=== PATIENT | female | born 1940 | race Caucasian/White ===

== ENCOUNTER 2020-03-05 13:50 | IRF | payer MEDICARE, SELFPAY ==
[2020-03-05 13:50] VITALS: BP 150/62; PULSE 88; RESP 18; TEMP 36.5; O2SAT 100; BMI 30.2
--- NOTE | 2020-03-05 14:07 | ADMGEN ---
This patient, Susana Gaming, was admitted to [facility] Room 226-02. Patient/family oriented to hospital policies and general routines including ID bracelet, bed and alarms, visiting hours, pain management, procedures, bathroom and other care routines, personal items, smoking policy, room service/diet, and visiting hours. Valuables list has been completed. Information on how to activate the Rapid Response Team has been discussed. Patient/Family are encouraged to report perceived risks to care and to ask questions if they do not understand what they are told or what they should do.
[2020-03-05] MEDS: hydrALAZINE HCL 50 MG TABLET PO ×2 (17:18→21:21)
[2020-03-05] MEDS: CLONAZEPAM 0.5 MG TAB 2 MG PO (21:15)
[2020-03-05 21:17] VITALS: PULSE 92
[2020-03-05] MEDS: LABETALOL HCL 100 MG TABLET PO (21:17)
[2020-03-05] MEDS: polyethylene glycoL 3350 17 GM POWD.PACK PO (21:19)
[2020-03-05 22:00] VITALS: BP 144/67; PULSE 100; RESP 19; TEMP 37.4; O2SAT 97
[2020-03-05] MEDS: busPIRone HCL 5 MG TABLET PO (23:17)
[2020-03-06 05:12] LABS: Basophils Percent Auto 0.4 % (0.2-1.2); Eosinophils Absolute Auto 0.1 K/mm3 (0-0.3); Eosinophils Percent Auto 1.5 % (0-4.4); Hematocrit 33.2 % (37.0-47.0); Hemoglobin 10.6 g/dL (12.0-15.0); Immature Granulocyte Absolute 0.07 K/mm3 (0.00-0.031); Immature Granulocyte Percent A 0.9 % (0-0.5); Lymphocytes Absolute Auto 1.72 K/mm3 (0.9-3.2); Lymphocytes Percent Auto 21.3 % (18.3-44.2); Mean Corpuscular HGB Conc 31.9 g/dl (32-36); Mean Corpuscular Hemoglobin 26.9 pg (26-34); Mean Corpuscular Volume 84.3 fl (80-100); Mean Platelet Volume 8.2 fl (7.4-10.4); Monocytes Absolute Auto 0.9 K/mm3 (0.1-0.6); Neutrophils Absolute Auto 5.3 K/mm3 (1.3-6.7); Neutrophils Percent Auto 64.9 % (45.5-73.1); Platelet Count Result 376 k/mm3 (150-375); Red Blood Count 3.94 M/mm3 (4.2-5.4); Red Cell Distribution Width 14.2 % (11.5-14.5); White Blood Count 8.1 K/mm3 (4.5-10.0)
[2020-03-06 05:21] LABS: Blood Urea Nitrogen 22 mg/dL (7-17); Calcium 8.8 mg/dL (8.4-10.2); Carbon Dioxide 26 mmol/L (22-30); Chloride 99 mmol/L (98-107); Cholesterol 133 mg/dL (0-200); Estimated CRCL calculation 50 ml/min; Estimated Glomerular Filt Rate > 60; Glucose 102 mg/dL (65-105); HDL Direct 34 mg/dL; Potassium 3.6 mmol/L (3.4-5.0); Sodium 132 mmol/L (137-145); Triglycerides 102 mg/dL (<150)
[2020-03-06 05:32] LABS: LDL Cholesterol Direct 79 mg/dL
[2020-03-06] MEDS: hydrALAZINE HCL 50 MG TABLET PO ×3 (05:58→21:01)
[2020-03-06 06:00] VITALS: BP 139/75; PULSE 85; RESP 18; TEMP 36.8; O2SAT 97
[2020-03-06] MEDS: polyethylene glycoL 3350 17 GM POWD.PACK PO ×2 (08:45→21:02)
[2020-03-06] MEDS: CLOPIDOGREL BISULFATE 75 MG TABLET PO (08:45)
[2020-03-06] MEDS: ASPIRIN 81 MG CHEWABLE TABLET PO (08:46)
[2020-03-06] MEDS: busPIRone HCL 5 MG TABLET PO ×3 (08:46→17:00)
--- NOTE | 2020-03-06 11:00 | WPDREHABHP ---
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 The patient is a 79-year-old right-handed woman with a very long history of anxiety and depression seeing psychiatrist for over 20 years pains it into the [facility] on March 01, 2020 due to left-sided weakness and PN all over. The patient reported of month history of muscle pain which her primary doctor prescribed prednisone and she felt better. To his is prior to admission she noticed slight left-sided weakness. She fell the day of admission and was unable to get herself up but is able to crawl to get to assistance. Upon admission CK level was 1639, LDL was 84 and sed rate was 31. CT was negative for any acute abnormality. Brain MRI demonstrated an acute ischemic stroke to paramidline pontomedullary junction and chronic smell small vessel disease. Echo showed an ejection fraction of 65%. Cardiology was consulted with no new orders. Neurology was consulted in order aspirin 81 milligram and Plavix. She was treated with IV fluids for elevated CPK level and her home: As been was cut down to 1 milligram at bedtime to improve balance. Her blood pressure was supposed to be controlled at home with labetalol, but the patient reported only taking 1 have does due to feeling hazy when taking the full dose. She was started on hydralazine 3 times a day to go with the half a dose of labetalol. Physical examination continues to reveal left-sided weakness impaired balance decreased safety awareness and decreased gross motor controlled. The patient will be discharged rehab on Lovenox for DVT prophylaxis. Therapy was initiated at the acute care facility and the patient transferred to us from [facility] on March 05, 2020 on FALLS OR SURGERIES: The patient has had no major surgeries in the 100 days prior to admission. They had no falls in the past year. They had no falls with injury in the past year. PAST MEDICAL HISTORY: TIA, chronic back and knee pain, hyperlipidemia, obstructive sleep apnea, hypertension, bulging lumbar discs, cancer of the kidney, insomnia, multinodular goiter, has scoliosis, shingles, vaginal atrophy, hyponatremia, hypokalemia The patient also has significant history of anxiety and depression and has been followed by the psychiatrist has been on Klonopin for almost 20 years and has received ECT in the past at least 3 times in 1 session she had tried amitriptyline and did have side effects from it she also suffers from chronic insomnia most likely related to underlying anxiety and depressive state PAST SURGICAL HISTORY: back surgery, cataract extraction, cystoscopy, hysterectomy, tumor removed from kidney. SOCIAL HISTORY: The patient lives independently in 1 level home with 1 step to enter she was completely independent prior with no assistive device. She has a friend that stops by every but he is unable to assist her with functional transfers and ambulation. She reported falls in the past 6 months but no personal or major injury. FAMILY HISTORY: The family history she will be able to give it to me tomorrow once she finds out or figure it out PRIOR LEVEL OF FUNCTION: Eating was INDEPENDENT Oral Care was INDEPENDENT Toileting Hygiene was INDEPENDENT Shower/Bathing was INDEPENDENT Upper Body Dressing was INDEPENDENT Lower Body Dressing was INDEPENDENT Donning/[place] Footwear was INDEPENDENT Rolling Left and Right was INDEPENDENT Sit to Lying was INDEPENDENT Lying to Sitting was INDEPENDENT Sit to Stand was INDEPENDENT Bed to Chair Transfers was INDEPENDENT Toilet Transfers was INDEPENDENT Walking was INDEPENDENT >500 feet with NO DEV
[2020-03-06 12:25] VITALS: BMI 30.2
[2020-03-06 14:00] VITALS: BP 146/68; PULSE 82; RESP 18; TEMP 36.6; O2SAT 96
--- NOTE | 2020-03-06 15:28 | RPD ---
INDIVIDUALIZED PLAN OF CARE FOR Susana Gaming Brief Synthesis of Pre-Admission Screen, Post-Admission Evaluation and Therapy Evaluations: The patient presents to rehab with right ischemic pontine stroke. Comorbidities include anxiety, back pain, uncontrolled hypertension, ESME, HLD, left-sided weakness, rhabdomyolysis, leukocytosis, scoliosis, insomnia, headache, dysarthria, mild cognitive impairment. The patient requires physician services for neurology services, medical oversight, and coordination of care. Emotional needs will be monitored as depression is a common sequelae of stroke. The patient needs physician monitoring and treatment of uncontrolled hypertension, electrolyte imbalances, monitoring for adverse reactions to new medications, monitoring for infection, and pain control. The patient requires nursing services for frequent neuro checks, anticoagulation therapy, medication management and education, pressure relief and skin care management, monitoring of labs, and fall/safety precautions. Deficits include:ADLs, Balance, Endurance, Family Training/Education, Mobility, Pain Management, ROM, Safety, Strength, Transfers Fitness Management Director/Case Management for: Discharge Planning and Patient/Family Counseling Physical Therapy: 5 days per week for 90 minutes. Treatments may include: Therapeutic Exercise, Gait Training, Neuromuscular Re-education, Transfer Training, Community Reintegration, Bed Mobility, Patient/Family Education, Wheelchair Mobility Group Therapy/Concurrent Therapy Rationales: -Improve attention span during functional activities in a distracted environment. -Enhance problem solving and/or adequate judgment skills during functional activities in a distracted environment. -Promote increased safety awareness in a distracted environment to reduce fall risk with functional tasks, transfers, and ambulation to allow a more safe, self-sufficient return to the home environment. -Improve dynamic balance skills to promote safety and independence with functional activities in a distracted environment for maximum gain. Occupational Therapy: 5 days per week for 90 minutes. Treatments may include: Therapeutic Exercise, Therapeutic Activity, Cognitive Training, Self-Care Transfer Training, Community Reintegration, Home Management, Patient/Family Education, Wheelchair Mobility Training, Energy Conservation Training Group Therapy/Concurrent Therapy Rationales: -Allow therapist to observe and teach generalization and carry-over of skills learned in individual therapy. -Enhance problem solving and sequencing skills during therapeutic activities in a distracted environment. -Promote increased safety awareness in a realistic setting to reduce fall risk with functional tasks due to visual and verbal distractions. -Increase functional level with ADLs, ADL transfers and use of adaptive equipment through therapeutic activities with others while promoting safety to allow a more safe, self-sufficient return home. Medical Prognosis: Good Anticipated Length of Stay: 10 days Rehab Goals: Eating Goal: 06-Independent Oral Hygiene Goal: 06-Independent Toileting Hygiene Goal: 06-Independent Shower/Bathe Self Goal: 06-Independent Upper Body Dressing Goal: 06-Independent Lower Body Dressing Goal: 06-Independent Putting On/Taking Off Footwear Goal: 06-Independent Rolling Left and Right Goal: 06-Independent Sit to Lying Goal: 06-Independent Lying to Sitting on Side of Bed Goal: 06-Independent Sit to Stand Goal: 06-Independent Chair/[id number] Transfer Goal: 06-Independent Toilet Transfer Goal: 06-Independent Car Transfer Goal: 06-Independent Walk 10' Goal: 06-Independent Walk 50' with Two Turns Goal: 06-Independent Walk 150' Goal: 06-Independent Walk 10' on Uneven Surface Goal: 06-Independent 1 Step (Curb) Goal: 04-Supervision or Touching Assistance 4 Steps Goal: 04-Supervision or Touching Assistance 12 Steps Goal Score: 03-Partial/Moderate Assistance Mariana
[2020-03-06 21:01] VITALS: PULSE 88
[2020-03-06] MEDS: QUEtiapine FUMARATE 12.5 MG TABLET PO (21:01)
[2020-03-06] MEDS: LABETALOL HCL 100 MG TABLET PO (21:01)
[2020-03-06] MEDS: CLONAZEPAM 0.5 MG TAB 2 MG PO (21:01)
[2020-03-06] MEDS: ACETAMINOPHEN 325 MG TABLET 650 MG PO (21:02)
[2020-03-06 22:00] VITALS: BP 127/56; PULSE 101; RESP 19; TEMP 37.4; O2SAT 95
[2020-03-07 06:00] VITALS: BP 131/61; PULSE 75; RESP 18; TEMP 36.4; O2SAT 97
[2020-03-07] MEDS: hydrALAZINE HCL 50 MG TABLET PO ×3 (06:52→21:17)
[2020-03-07] MEDS: polyethylene glycoL 3350 17 GM POWD.PACK PO (08:49)
[2020-03-07] MEDS: CLOPIDOGREL BISULFATE 75 MG TABLET PO (08:49)
[2020-03-07] MEDS: busPIRone HCL 5 MG TABLET PO ×3 (08:49→17:08)
[2020-03-07] MEDS: ASPIRIN 81 MG CHEWABLE TABLET PO (08:49)
--- NOTE | 2020-03-07 12:04 | WPDNEURORHBP ---
Subjective Date/time seen: 03/07/20 12:04 Interval history: this 79-year-old woman is here after having had right pontine ischemic stroke with the left-sided hemiparesis with underlying significant anxiety and depression almost lifelong she is complaining of insomnia for which I have opted to give her a little increasing dose of Seroquel which she has been taking of his small dose at home anyway and see how she responds she denies any headache nausea vomiting chest pain shortness of breath fever chills or sore throat Review of Systems Review of Systems: All systems reviewed & are unremarkable except as noted in HPI and below Functional Status Ambulation Ability Ability to Ambulate 10 Feet: Minimum Assistance X 1 Ability to Ambulate 50 Feet With 2 Turns: Moderate Assistance X 1 Ability to Ambulate 150 Feet: Moderate Assistance X 1 Ambulation Assistive Devices: Walker, Wheeled Transfers Ability Ability to Transfer In/Out of Chair: Minimum Assistance X 1 Exam Const: General: comfortable and no acute distress HENMT: General nose exam: Normal nares present Mouth: Yes moist mucous membranes Eyes: General: appearance normal, both eyes and all related structures Neck: Neck: supple and no JVD Resp: Effort & Inspection: normal respiratory effort Auscultation: clear to auscultation bilaterally Cardio: Rate: regular rate Rhythm: regular rhythm GI: GI Palp: Yes Soft to palpation Auscultation: normal bowel sounds Skin: General skin exam: normal color and no rashes or lesions noted Neuro: Other: patient is awake and alert will oriented in time place and person is speech and language functions are normal cranial exam henderson are normal left-sided hemiparesis improving her underlying anxiety is stable Extrem: General: normal to inspection Psych: Mental Status: mental status grossly normal Other: apart from anxiety state which she has lifelong she is stable from psychological standpoint Objective Data Vital Signs Vital Signs: Vital Signs - 24 hr 03/07/20 14:00 03/07/20 20:23 03/07/20 22:00 Temperature 37.0 C 36.7 C Pulse Rate 86 82 91 Respiratory Rate 18 18 Blood Pressure 138/63 137/59 L Pulse Oximetry 96 94 03/08/20 06:00 Temperature 36.7 C Pulse Rate 76 Respiratory Rate 18 Blood Pressure 138/64 Pulse Oximetry 96 Intake/Output Intake/Output: Intake & Output 03/05/20 03/06/20 03/07/20 03/08/20 23:59 23:59 23:59 23:59 Intake Total 360 600 960 240 Balance 360 600 960 240 Meds/Results Medications: Active Medications Generic Name Dose Route Start Last Admin Trade Name Freq PRN Reason Stop Dose Admin Acetaminophen 650 mg 03/05/20 14:29 03/08/20 03:18 Tylenol Tablet PO 650 mg Q4H PRN Administration Pain Artificial Tears 1 drop 03/07/20 12:31 03/07/20 14:13 Artificial Tears EACH EYE 1 drop QID PRN Administration Dry Eye(s) Aspirin 81 mg 03/06/20 09:00 03/08/20 09:25 Aspirin Chewable PO 81 mg DAILY KALEN Administration Buspirone HCl 5 mg 03/06/20 13:00 03/08/20 09:25 Buspar PO 5 mg TID KALEN Administration Clonazepam 2 mg 03/05/20 21:00 03/07/20 20:23 Klonopin Tablet PO 2 mg HS KALEN Administration Clopidogrel Bisulfate 75 mg 03/06/20 09:00 03/08/20 09:25 Plavix PO 75 mg DAILY KALEN Administration Hydralazine HCl 50 mg 03/05/20 14:30 03/08/20 06:51 Apresoline Tablet PO 50 mg Q8HR KALEN Administration Labetalol HCl 100 mg 03/05/20 21:00 03/07/20 20:23 Trandate PO 100 mg HS KALEN Administration Polyethylene Glycol 17 gm 03/05/20 21:00 03/07/20 20:24 Miralax PO Not Given Q12HR KALEN Quetiapine Fumarate 12.5 mg 03/06/20 21:00 03/07/20 20:23 Seroquel PO 12.5 mg HS KALEN Administration Progress Note: A&P Assessment and Plan (1) Klonopin use disorder, moderate, in controlled environment, dependence: Code(s): F13.20 - Sedative, hypnotic or anxiolytic dependence, uncomplicated
[2020-03-07 14:00] VITALS: BP 138/63; PULSE 86; RESP 18; TEMP 37; O2SAT 96
[2020-03-07 20:23] VITALS: PULSE 82
[2020-03-07] MEDS: CLONAZEPAM 0.5 MG TAB 2 MG PO (20:23)
[2020-03-07] MEDS: LABETALOL HCL 100 MG TABLET PO (20:23)
[2020-03-07] MEDS: QUEtiapine FUMARATE 12.5 MG TABLET PO (20:23)
[2020-03-07 22:00] VITALS: BP 137/59; PULSE 91; RESP 18; TEMP 36.7; O2SAT 94
[2020-03-08] MEDS: ACETAMINOPHEN 325 MG TABLET 650 MG PO (03:18)
[2020-03-08 06:00] VITALS: BP 138/64; PULSE 76; RESP 18; TEMP 36.7; O2SAT 96
[2020-03-08] MEDS: hydrALAZINE HCL 50 MG TABLET PO ×3 (06:51→20:06)
[2020-03-08] MEDS: busPIRone HCL 5 MG TABLET PO ×3 (09:25→18:52)
[2020-03-08] MEDS: CLOPIDOGREL BISULFATE 75 MG TABLET PO (09:25)
[2020-03-08] MEDS: ASPIRIN 81 MG CHEWABLE TABLET PO (09:25)
[2020-03-08 14:00] VITALS: BP 152/61; PULSE 84; RESP 20; TEMP 36.9; O2SAT 95
--- NOTE | 2020-03-08 14:25 | WPDNEURORHBP ---
Subjective Date/time seen: 03/08/20 14:25 Interval history: this 79-year-old woman with a long history of anxiety depression is here after having had right pontine stroke which has left her with left-sided hemiparesis her stroke symptoms are improving however her anxiety level is higher and that is causing her to insomnia which I discussed with her in detail and counseled her about it she denies any headache nausea vomiting chest pain shortness of breath fever chills or sore throat Review of Systems Review of Systems: All systems reviewed & are unremarkable except as noted in HPI and below Functional Status Ambulation Ability Ability to Ambulate 10 Feet: Minimum Assistance X 1 Ability to Ambulate 50 Feet With 2 Turns: Moderate Assistance X 1 Ability to Ambulate 150 Feet: Moderate Assistance X 1 Ambulation Assistive Devices: Walker, Wheeled Transfers Ability Ability to Transfer In/Out of Chair: Minimum Assistance X 1 Exam Const: General: comfortable and no acute distress HENMT: General nose exam: Normal nares present Mouth: Yes moist mucous membranes Eyes: General: appearance normal, both eyes and all related structures Neck: Neck: supple and no JVD Resp: Effort & Inspection: normal respiratory effort Auscultation: clear to auscultation bilaterally Cardio: Rate: regular rate Rhythm: regular rhythm GI: GI Palp: Yes Soft to palpation Auscultation: normal bowel sounds Skin: General skin exam: normal color and no rashes or lesions noted Neuro: Other: patient had left-sided hemiparesis from which she is improving still needing assistance in the activities o Extrem: General: normal to inspection Psych: Other: underlying anxiety is obvious otherwise sees stable neither psychotic or not in significant distress Objective Data Vital Signs Vital Signs: Vital Signs - 24 hr 03/07/20 20:23 03/07/20 22:00 03/08/20 06:00 Temperature 36.7 C 36.7 C Pulse Rate 82 91 76 Respiratory Rate 18 18 Blood Pressure 137/59 L 138/64 Pulse Oximetry 94 96 Intake/Output Intake/Output: Intake & Output 03/05/20 03/06/20 03/07/20 03/08/20 23:59 23:59 23:59 23:59 Intake Total 360 600 960 240 Balance 360 600 960 240 Meds/Results Medications: Active Medications Generic Name Dose Route Start Last Admin Trade Name Freq PRN Reason Stop Dose Admin Acetaminophen 650 mg 03/05/20 14:29 03/08/20 03:18 Tylenol Tablet PO 650 mg Q4H PRN Administration Pain Artificial Tears 1 drop 03/07/20 12:31 03/07/20 14:13 Artificial Tears EACH EYE 1 drop QID PRN Administration Dry Eye(s) Aspirin 81 mg 03/06/20 09:00 03/08/20 09:25 Aspirin Chewable PO 81 mg DAILY KALEN Administration Buspirone HCl 5 mg 03/06/20 13:00 03/08/20 13:52 Buspar PO 5 mg TID KALEN Administration Clonazepam 2 mg 03/05/20 21:00 03/07/20 20:23 Klonopin Tablet PO 2 mg HS KALEN Administration Clopidogrel Bisulfate 75 mg 03/06/20 09:00 03/08/20 09:25 Plavix PO 75 mg DAILY KALEN Administration Hydralazine HCl 50 mg 03/05/20 14:30 03/08/20 06:51 Apresoline Tablet PO 50 mg Q8HR KALEN Administration Labetalol HCl 100 mg 03/05/20 21:00 03/07/20 20:23 Trandate PO 100 mg HS KALEN Administration Melatonin 10 mg 03/08/20 21:00 Melatonin PO HS KALEN Polyethylene Glycol 17 gm 03/05/20 21:00 03/07/20 20:24 Miralax PO Not Given Q12HR KALEN Quetiapine Fumarate 12.5 mg 03/06/20 21:00 03/07/20 20:23 Seroquel PO 12.5 mg HS KALEN Administration Progress Note: A&P Assessment and Plan (1) Klonopin use disorder, moderate, in controlled environment, dependence: Code(s): F13.20 - Sedative, hypnotic or anxiolytic dependence, uncomplicated Status: Acute (2) Anxiety and depression: Code(s): F41.9 - Anxiety disorder, unspecified; F32.9 - Major depressive disorder, single episode, unspecified Status: Acute (3) Hypertension: Code
[2020-03-08 20:05] VITALS: PULSE 88
[2020-03-08] MEDS: LABETALOL HCL 100 MG TABLET PO (20:05)
[2020-03-08] MEDS: MELATONIN 5 MG TABLET 10 MG PO (20:05)
[2020-03-08] MEDS: polyethylene glycoL 3350 17 GM POWD.PACK PO (20:05)
[2020-03-08] MEDS: QUEtiapine FUMARATE 12.5 MG TABLET PO (20:06)
[2020-03-08] MEDS: CLONAZEPAM 0.5 MG TAB 2 MG PO (20:08)
[2020-03-08 21:53] VITALS: BP 146/64; PULSE 87; RESP 18; TEMP 37.1; O2SAT 96
[2020-03-09] MEDS: ACETAMINOPHEN 325 MG TABLET 650 MG PO (02:12)
[2020-03-09] MEDS: hydrALAZINE HCL 50 MG TABLET PO ×3 (05:50→20:05)
[2020-03-09 06:26] VITALS: BP 171/69; PULSE 84; RESP 18; TEMP 36.6; O2SAT 96
[2020-03-09] MEDS: ASPIRIN 81 MG CHEWABLE TABLET PO (08:47)
[2020-03-09] MEDS: CLOPIDOGREL BISULFATE 75 MG TABLET PO (08:47)
[2020-03-09] MEDS: busPIRone HCL 5 MG TABLET PO ×3 (08:47→17:13)
[2020-03-09] MEDS: CALCIUM CARBONATE (TUMS) 500 MG (200 MG ELEMENTAL) 400 MG PO (09:55)
[2020-03-09 14:00] VITALS: BP 156/72; PULSE 80; RESP 18; TEMP 36.2; O2SAT 97
[2020-03-09] MEDS: LOPERAMIDE HCL 2 MG CAPSULE PO (17:12)
--- NOTE | 2020-03-09 18:17 | PC.NURSE ---
pt upset this shift stating she could not deal with the medications at night. patient stated she felt she was dopey and couldn't do therapy. Dr Tristan here and was updated and talked to the patient. Seroquel was decreased to 6.25, melatonin 10 mg was discontinued. Pt also stated she was having a lot of bowel movements today and her stomach was upset. pt requested tums this morning which an order was obtained and given. Patient then requested something to stop going to the bathroom so much. received order for imodium and patient given a dose. will continue to monitor.
[2020-03-09 20:04] VITALS: PULSE 76
[2020-03-09] MEDS: LABETALOL HCL 100 MG TABLET PO (20:04)
[2020-03-09] MEDS: CLONAZEPAM 0.5 MG TAB 2 MG PO (20:04)
[2020-03-09 22:00] VITALS: BP 167/73; PULSE 81; RESP 18; TEMP 36.4; O2SAT 98
[2020-03-10 06:00] VITALS: BP 145/66; PULSE 80; RESP 18; TEMP 36.2; O2SAT 97
[2020-03-10] MEDS: hydrALAZINE HCL 50 MG TABLET PO ×3 (06:44→20:32)
[2020-03-10] MEDS: CLOPIDOGREL BISULFATE 75 MG TABLET PO (09:57)
[2020-03-10] MEDS: busPIRone HCL 5 MG TABLET PO ×3 (09:57→18:10)
[2020-03-10] MEDS: ASPIRIN 81 MG CHEWABLE TABLET PO (09:57)
--- NOTE | 2020-03-10 11:43 | WPDNEURORHBP ---
Subjective Date/time seen: Right pontine stroke with anxiety and [id number]/26/20 11:43 Review of Systems Review of Systems: All systems reviewed & are unremarkable except as noted in HPI and below Functional Status Ambulation Ability Ability to Ambulate 10 Feet: Contact Guard Ability to Ambulate 50 Feet With 2 Turns: Minimum Assistance X 1 Ability to Ambulate 150 Feet: Minimum Assistance X 1 Ambulation Assistive Devices: Walker, Wheeled Transfers Ability Ability to Transfer In/Out of Chair: Minimum Assistance X 1 Exam Const: General: comfortable and no acute distress Orientation/consciousness: patient oriented x3 Eyes: General: appearance normal, both eyes and all related structures Neck: Neck: full ROM Resp: Effort & Inspection: normal respiratory effort Auscultation: clear to auscultation bilaterally Cardio: Rate: regular rate Rhythm: regular rhythm GI: Auscultation: normal bowel sounds Skin: General skin exam: no rashes or lesions noted Neuro: General: patient oriented x3 and moves all extremities Cranial nerves: Yes Equal, round and reactive pupils present, Yes Nystagmus not present, Yes Normal facial strength present and Yes Ability to bilaterally rotate head present Cognition (Neuro): normal cognition Speech: normal speech Gait exam (Neuro): Assisted gait required (hemiparetic) Psych: Affect: Anxious affect present Thought process: Normal thought process present Thought content: Yes Normal thought content present Objective Data Vital Signs Vital Signs: Vital Signs - 24 hr 03/09/20 14:00 03/09/20 20:04 03/09/20 22:00 Temperature 36.2 C L 36.4 C L Pulse Rate 80 76 81 Respiratory Rate 18 18 Blood Pressure 156/72 H 167/73 H Pulse Oximetry 97 98 03/10/20 06:00 Temperature 36.2 C L Pulse Rate 80 Respiratory Rate 18 Blood Pressure 145/66 H Pulse Oximetry 97 Intake/Output Intake/Output: Intake & Output 03/07/20 03/08/20 03/09/20 03/10/20 23:59 23:59 23:59 23:59 Intake Total 960 480 720 240 Balance 960 480 720 240 Meds/Results Medications: Active Medications Generic Name Dose Route Start Last Admin Trade Name Freq PRN Reason Stop Dose Admin Acetaminophen 650 mg 03/05/20 14:29 03/09/20 02:12 Tylenol Tablet PO 650 mg Q4H PRN Administration Pain Artificial Tears 1 drop 03/07/20 12:31 03/07/20 14:13 Artificial Tears EACH EYE 1 drop QID PRN Administration Dry Eye(s) Aspirin 81 mg 03/06/20 09:00 03/10/20 09:57 Aspirin Chewable PO 81 mg DAILY KALEN Administration Buspirone HCl 5 mg 03/06/20 13:00 03/10/20 09:57 Buspar PO 5 mg TID KALEN Administration Calcium Carbonate 400 mg 03/09/20 09:24 03/09/20 09:55 Tums PO 400 mg Q6H PRN Administration Indigestion Clonazepam 2 mg 03/05/20 21:00 03/09/20 20:04 Klonopin Tablet PO 2 mg HS KALEN Administration Clopidogrel Bisulfate 75 mg 03/06/20 09:00 03/10/20 09:57 Plavix PO 75 mg DAILY KALEN Administration Hydralazine HCl 50 mg 03/05/20 14:30 03/10/20 06:44 Apresoline Tablet PO 50 mg Q8HR KALEN Administration Labetalol HCl 100 mg 03/05/20 21:00 03/09/20 20:04 Trandate PO 100 mg HS KALEN Administration Loperamide HCl 2 mg 03/09/20 14:50 03/09/20 17:12 Loperamide Hcl PO 2 mg PRN PRN Administration Diarrhea Quetiapine 6.25mg 1 each 03/09/20 21:00 03/09/20 20:05 Tablet PO 04/08/20 21:01 1 each HS KALEN Administration Polyethylene Glycol 17 gm 03/09/20 15:24 Miralax PO 03/12/20 15:25 Q12HR PRN Constipation Progress Note: A&P Assessment and Plan (1) Klonopin use disorder, moderate, in controlled environment, dependence: Code(s): F13.20 - Sedative, hypnotic or anxiolytic dependence, uncomplicated Status: Acute (2) Anxiety and depression: Code(s): F41.9 - Anxiety disorder, unspecified; F32.9 - Major depressive disorder, single episode, unspecified Status
[2020-03-10 14:00] VITALS: BP 149/66; PULSE 89; RESP 16; TEMP 36.6; O2SAT 96
[2020-03-10 20:32] VITALS: PULSE 88
[2020-03-10] MEDS: LABETALOL HCL 100 MG TABLET PO (20:32)
[2020-03-10] MEDS: CLONAZEPAM 0.5 MG TAB 2 MG PO (20:33)
[2020-03-10 22:00] VITALS: BP 146/76; PULSE 84; RESP 18; TEMP 36.6; O2SAT 96
[2020-03-11] MEDS: ACETAMINOPHEN 325 MG TABLET 650 MG PO (02:55)
[2020-03-11 06:00] VITALS: BP 144/52; PULSE 76; RESP 18; TEMP 37.1; O2SAT 96
[2020-03-11] MEDS: hydrALAZINE HCL 50 MG TABLET PO ×3 (06:05→21:01)
[2020-03-11] MEDS: ASPIRIN 81 MG CHEWABLE TABLET PO (08:24)
[2020-03-11] MEDS: CLOPIDOGREL BISULFATE 75 MG TABLET PO (08:24)
[2020-03-11] MEDS: busPIRone HCL 5 MG TABLET PO ×3 (08:24→17:16)
--- NOTE | 2020-03-11 13:03 | PCNFU ---
Nutrition Follow-Up Complete: Predicted suboptimal oral intake related to decreased appetite as evidenced by intakes 50-75% thus far. Goal: Patient to consume 75% of meals/supplements. Progressing towards goal. We will continue with current goal. Pt current nutrition is Heart Healthy. Nutrition recommendation: Agree Last recorded weight is 85 kg. Bowel Motility: +BM reported 03/10. Labs Reviewed:No new labs to report. Meds Noted:Asprin,Plavix Additional Notes: Spoke with patient over the telephone today due to COVID 19 precautions. Patient states to no diet concerns. Oral Intake has been 50-100% of most meals. Patient states to drinking the Ensure Enlive once daily providing an additional 350 kcals and 20 gms protein. Agree with diet orders. Monitoring: Follow up every 7 days.
[2020-03-11 14:00] VITALS: BP 134/60; PULSE 88; RESP 16; TEMP 37.2; O2SAT 97
[2020-03-11] MEDS: CLONAZEPAM 0.5 MG TAB 2 MG PO (20:57)
[2020-03-11] MEDS: polyethylene glycoL 3350 17 GM POWD.PACK PO (21:00)
[2020-03-11 21:01] VITALS: PULSE 66
[2020-03-11] MEDS: LABETALOL HCL 100 MG TABLET PO (21:01)
[2020-03-11 22:00] VITALS: BP 148/66; PULSE 86; RESP 18; TEMP 37; O2SAT 97
[2020-03-12 06:00] VITALS: BP 162/66; PULSE 83; RESP 18; TEMP 37.1; O2SAT 95
[2020-03-12] MEDS: hydrALAZINE HCL 50 MG TABLET PO ×3 (06:37→21:14)
[2020-03-12] MEDS: CLOPIDOGREL BISULFATE 75 MG TABLET PO (10:07)
[2020-03-12] MEDS: busPIRone HCL 5 MG TABLET PO ×3 (10:07→17:14)
[2020-03-12] MEDS: ASPIRIN 81 MG CHEWABLE TABLET PO (10:07)
[2020-03-12 14:00] VITALS: BP 140/58; PULSE 80; RESP 18; TEMP 36.6; O2SAT 99
--- NOTE | 2020-03-12 14:05 | WPDNEURORHBP ---
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 She denies any headache nausea vomiting chest pain shortness of breath fever chills or sore throat Review of Systems Review of Systems: All systems reviewed & are unremarkable except as noted in HPI and below Functional Status Ambulation Ability Ability to Ambulate 10 Feet: Contact Guard Ability to Ambulate 50 Feet With 2 Turns: Contact Guard Ability to Ambulate 150 Feet: Contact Guard Ambulation Assistive Devices: Walker, Wheeled Transfers Ability Ability to Transfer In/Out of Chair: Minimum Assistance X 1 Exam Const: General: comfortable and no acute distress HENMT: General nose exam: Normal nares present Mouth: Yes moist mucous membranes Eyes: General: appearance normal, both eyes and all related structures Neck: Neck: supple and no JVD Resp: Effort & Inspection: normal respiratory effort Auscultation: clear to auscultation bilaterally Cardio: Rate: regular rate Rhythm: regular rhythm GI: GI Palp: Yes Soft to palpation Auscultation: normal bowel sounds Skin: General skin exam: normal color and no rashes or lesions noted Neuro: Other: patient is awake alert will oriented times person person has normal speech lung function cranial exam shows normal she does have improving left-sided hemiparesis and engage in therapy fairly well Extrem: General: normal to inspection Psych: Mental Status: mental status grossly normal Objective Data Vital Signs Vital Signs: Vital Signs - 24 hr 03/11/20 21:01 03/11/20 22:00 03/12/20 06:00 Temperature 37.0 C 37.1 C Pulse Rate 66 86 83 Respiratory Rate 18 18 Blood Pressure 148/66 H 162/66 H Pulse Oximetry 97 95 Intake/Output Intake/Output: Intake & Output 03/09/20 03/10/20 03/11/20 03/12/20 23:59 23:59 23:59 23:59 Intake Total 720 680 720 480 Balance 720 680 720 480 Meds/Results Medications: Active Medications Generic Name Dose Route Start Last Admin Trade Name Freq PRN Reason Stop Dose Admin Acetaminophen 650 mg 03/05/20 14:29 03/11/20 02:55 Tylenol Tablet PO 650 mg Q4H PRN Administration Pain Artificial Tears 1 drop 03/07/20 12:31 03/07/20 14:13 Artificial Tears EACH EYE 1 drop QID PRN Administration Dry Eye(s) Aspirin 81 mg 03/06/20 09:00 03/12/20 10:07 Aspirin Chewable PO 81 mg DAILY KALEN Administration Buspirone HCl 5 mg 03/06/20 13:00 03/12/20 12:49 Buspar PO 5 mg TID KALEN Administration Calcium Carbonate 400 mg 03/09/20 09:24 03/09/20 09:55 Tums PO 400 mg Q6H PRN Administration Indigestion Clonazepam 2 mg 03/05/20 21:00 03/11/20 20:57 Klonopin Tablet PO 2 mg HS KALEN Administration Clopidogrel Bisulfate 75 mg 03/06/20 09:00 03/12/20 10:07 Plavix PO 75 mg DAILY KALEN Administration Hydralazine HCl 50 mg 03/05/20 14:30 03/12/20 06:37 Apresoline Tablet PO 50 mg Q8HR KALEN Administration Labetalol HCl 100 mg 03/05/20 21:00 03/11/20 21:01 Trandate PO 100 mg HS KALEN Administration Loperamide HCl 2 mg 03/09/20 14:50 03/09/20 17:12 Loperamide Hcl PO 2 mg PRN PRN Administration Diarrhea Quetiapine 6.25mg 1 each 03/09/20 21:00 03/11/20 20:59 Tablet PO 04/08/20 21:01 1 each HS KALEN Administration Polyethylene Glycol 17 gm 03/09/20 15:24 03/11/20 21:00 Miralax PO 03/12/20 15:25 17 gm Q12HR PRN Administration Constipation Progress Note: A&P Assessment and Plan (1) Klonopin use disorder, moderate, in controlled environment, dependence: Code(s): F13.20 - Sedative, hypnotic or anxiolytic dependence, uncomplicated Status: Acute (2) Anxiety and depression: Code(s): F41.9 - A
[2020-03-12 16:00] VITALS: PULSE 82; RESP 18
[2020-03-12] MEDS: CLONAZEPAM 0.5 MG TAB 2 MG PO (21:11)
[2020-03-12 21:14] VITALS: PULSE 68
[2020-03-12] MEDS: LABETALOL HCL 100 MG TABLET PO (21:14)
[2020-03-12 22:00] VITALS: BP 168/74; PULSE 83; RESP 18; TEMP 36.8; O2SAT 98
[2020-03-13 04:38] LABS: Basophils Percent Auto 0.4 % (0.2-1.2); Eosinophils Absolute Auto 0.1 K/mm3 (0-0.3); Eosinophils Percent Auto 1.9 % (0-4.4); Hematocrit 29.8 % (37.0-47.0); Hemoglobin 9.4 g/dL (12.0-15.0); Immature Granulocyte Absolute 0.03 K/mm3 (0.00-0.031); Immature Granulocyte Percent A 0.4 % (0-0.5); Lymphocytes Absolute Auto 1.16 K/mm3 (0.9-3.2); Lymphocytes Percent Auto 17.2 % (18.3-44.2); Mean Corpuscular HGB Conc 31.5 g/dl (32-36); Mean Corpuscular Hemoglobin 26.8 pg (26-34); Mean Corpuscular Volume 84.9 fl (80-100); Mean Platelet Volume 8.3 fl (7.4-10.4); Monocytes Absolute Auto 0.9 K/mm3 (0.1-0.6); Neutrophils Absolute Auto 4.5 K/mm3 (1.3-6.7); Neutrophils Percent Auto 67.1 % (45.5-73.1); Platelet Count Result 330 k/mm3 (150-375); Red Blood Count 3.51 M/mm3 (4.2-5.4); Red Cell Distribution Width 14.4 % (11.5-14.5); White Blood Count 6.8 K/mm3 (4.5-10.0)
[2020-03-13 04:53] LABS: Blood Urea Nitrogen 16 mg/dL (7-17); Calcium 8.7 mg/dL (8.4-10.2); Carbon Dioxide 28 mmol/L (22-30); Chloride 97 mmol/L (98-107); Estimated CRCL calculation 55 ml/min; Estimated Glomerular Filt Rate > 60; Glucose 101 mg/dL (65-105); Potassium 3.8 mmol/L (3.4-5.0); Sodium 131 mmol/L (137-145)
[2020-03-13 06:00] VITALS: BP 171/71; PULSE 78; RESP 18; TEMP 36.8; O2SAT 98
[2020-03-13] MEDS: hydrALAZINE HCL 25 MG TABLET 50 MG PO (06:29)
[2020-03-13 08:00] VITALS: PULSE 79; RESP 18; O2SAT 97
[2020-03-13] MEDS: ASPIRIN 81 MG CHEWABLE TABLET PO (11:02)
[2020-03-13] MEDS: busPIRone HCL 5 MG TABLET PO ×2 (11:02→18:59)
[2020-03-13] MEDS: CLOPIDOGREL BISULFATE 75 MG TABLET PO (11:02)
--- NOTE | 2020-03-13 12:47 | PCPTNOTE ---
Susana Gaming was evaluated for a wheeled walker on 03/13/2020 by this physical therapist. The wheeled walker will resolve patient's mobility limitations and will be used for ADL's within the home. The patient can safely use the wheeled walker. ?The wheeled walker will resolve the patient?s mobility deficits, including impaired balance, impaired strength, and impaired functional activity tolerance. Leann Fuller, PT, DPT
--- NOTE | 2020-03-13 13:43 | WPDNEURORHBP ---
Subjective Date/time seen: 03/13/20 13:43 Interval history: this 79-year-old we with significantly elevated blood pressure was admitted after having had a right pontine stroke with the left-sided hemiparesis which is initially is purely a more weakness the patient complains of tiredness and fatigue which could definitely be related to labetalol she is on however her systolic blood pressure remains most the time above 160 or even 170 which is a concerning factor in a person who have had a stroke and now so many days post stroke this needs to be addressed at this point she denies any headache nausea vomiting chest pain shortness of breath fever chills or sore throat her anxiety and depression is stable at this point Review of Systems Review of Systems: All systems reviewed & are unremarkable except as noted in HPI and below Functional Status Ambulation Ability Ability to Ambulate 10 Feet: Contact Guard Ability to Ambulate 50 Feet With 2 Turns: Contact Guard Ability to Ambulate 150 Feet: Contact Guard Ambulation Assistive Devices: Walker, Wheeled Transfers Ability Ability to Transfer In/Out of Chair: Contact Guard Exam Const: General: comfortable and no acute distress HENMT: General nose exam: Normal nares present Mouth: Yes moist mucous membranes Eyes: General: appearance normal, both eyes and all related structures Neck: Neck: supple and no JVD Resp: Effort & Inspection: normal respiratory effort Auscultation: clear to auscultation bilaterally Cardio: Rate: regular rate Rhythm: regular rhythm GI: GI Palp: Yes Soft to palpation Auscultation: normal bowel sounds Skin: General skin exam: normal color and no rashes or lesions noted Neuro: Other: patient is awake alert normal speech and language function is speech is free of aphasia and dysarthria left-sided weakness is improving her anxiety state is stable distal needing assistance in the activities Extrem: General: normal to inspection Psych: Mental Status: mental status grossly normal Objective Data Vital Signs Vital Signs: Vital Signs - 24 hr 03/12/20 14:00 03/12/20 16:00 03/12/20 21:14 Temperature 36.6 C Pulse Rate 80 82 68 Respiratory Rate 18 18 Blood Pressure 140/58 L Pulse Oximetry 99 03/12/20 22:00 03/13/20 06:00 Temperature 36.8 C 36.8 C Pulse Rate 83 78 Respiratory Rate 18 18 Blood Pressure 168/74 H 171/71 H Pulse Oximetry 98 98 Intake/Output Intake/Output: Intake & Output 03/10/20 03/11/20 03/12/20 03/13/20 23:59 23:59 23:59 23:59 Intake Total 680 720 720 480 Balance 680 720 720 480 Meds/Results Medications: Active Medications Generic Name Dose Route Start Last Admin Trade Name Freq PRN Reason Stop Dose Admin Acetaminophen 650 mg 03/05/20 14:29 03/11/20 02:55 Tylenol Tablet PO 650 mg Q4H PRN Administration Pain Artificial Tears 1 drop 03/07/20 12:31 03/07/20 14:13 Artificial Tears EACH EYE 1 drop QID PRN Administration Dry Eye(s) Aspirin 81 mg 03/06/20 09:00 03/13/20 11:02 Aspirin Chewable PO 81 mg DAILY KALEN Administration Buspirone HCl 5 mg 03/06/20 13:00 03/13/20 11:02 Buspar PO 5 mg TID KALEN Administration Calcium Carbonate 400 mg 03/09/20 09:24 03/09/20 09:55 Tums PO 400 mg Q6H PRN Administration Indigestion Clonazepam 2 mg 03/05/20 21:00 03/12/20 21:11 Klonopin Tablet PO 2 mg HS KALEN Administration Clopidogrel Bisulfate 75 mg 03/06/20 09:00 03/13/20 11:02 Plavix PO 75 mg DAILY KALEN Administration Labetalol HCl 100 mg 03/05/20 21:00 03/12/20 21:14 Trandate PO 100 mg HS KALEN Administration Loperamide HCl 2 mg 03/09/20 14:50 03/09/20 17:12 Loperamide Hcl PO 2 mg PRN PRN Administration Diarrhea Quetiapine 6.25mg 1 each 03/09/20 21:00 03/12/20 21:17 Tablet PO 04/08/20 21:01 1 each HS KALEN Administration Labs Labs: Laboratory Results - last 24 hr 03/13/20 03/13/20
[2020-03-13 14:00] VITALS: BP 152/62; PULSE 79; RESP 18; TEMP 36.8; O2SAT 97
[2020-03-13] MEDS: hydrALAZINE HCL 50 MG TABLET 100 MG PO ×2 (17:16→20:27)
[2020-03-13] MEDS: CLONAZEPAM 0.5 MG TAB 2 MG PO (20:27)
[2020-03-13 20:28] VITALS: PULSE 88
[2020-03-13] MEDS: LABETALOL HCL 100 MG TABLET PO (20:28)
[2020-03-13 22:00] VITALS: BP 160/61; PULSE 89; RESP 16; TEMP 37; O2SAT 94
[2020-03-14] MEDS: hydrALAZINE HCL 50 MG TABLET 100 MG PO ×3 (05:49→20:35)
[2020-03-14 06:00] VITALS: BP 146/60; PULSE 86; RESP 18; TEMP 36.9; O2SAT 93
[2020-03-14] MEDS: ASPIRIN 81 MG CHEWABLE TABLET PO (09:24)
[2020-03-14] MEDS: polyethylene glycoL 3350 17 GM POWD.PACK PO (09:24)
[2020-03-14] MEDS: CLOPIDOGREL BISULFATE 75 MG TABLET PO (09:24)
[2020-03-14] MEDS: busPIRone HCL 5 MG TABLET PO ×3 (09:25→17:18)
[2020-03-14] MEDS: ACETAMINOPHEN 325 MG TABLET 650 MG PO (09:25)
--- NOTE | 2020-03-14 10:42 | WPDNEURORHBP ---
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 her blood pressure is a decently controlled now after the hydralazine has been increased however still has lot of questions about the side effects of the medication and feel tired she need to be counseled on will consult her again as before to suppress her anxiety overall she is improving and doing much better in the rehab she denies any headache nausea vomiting chest pain shortness of breath fever chills or sore throat Review of Systems Review of Systems: All systems reviewed & are unremarkable except as noted in HPI and below Functional Status Ambulation Ability Ability to Ambulate 10 Feet: Standby Assistance Ability to Ambulate 50 Feet With 2 Turns: Standby Assistance Ability to Ambulate 150 Feet: Standby Assistance Ambulation Assistive Devices: Walker, Wheeled Transfers Ability Ability to Transfer In/Out of Chair: Contact Guard Exam Const: General: comfortable and no acute distress HENMT: General nose exam: Normal nares present Mouth: Yes moist mucous membranes Eyes: General: appearance normal, both eyes and all related structures Neck: Neck: supple and no JVD Resp: Effort & Inspection: normal respiratory effort Auscultation: clear to auscultation bilaterally Cardio: Rate: regular rate Rhythm: regular rhythm GI: GI Palp: Yes Soft to palpation Auscultation: normal bowel sounds Skin: General skin exam: normal color and no rashes or lesions noted Neuro: Other: apart from anxiety and depressive state the patient is awake and alert will oriented in time place and person with normal speech and language function normal cranial examination and significant improvement of the left-sided hemiparesis progressing in rehab quite well Extrem: General: normal to inspection Psych: Other: she remains a suffering from the anxiety and depression which most likely is her baseline Objective Data Vital Signs Vital Signs: Vital Signs - 24 hr 03/14/20 14:00 03/14/20 20:35 03/14/20 22:00 Temperature 36.4 C 36.8 C Pulse Rate 83 78 75 Respiratory Rate 18 18 Blood Pressure 161/64 H 151/74 H Pulse Oximetry 100 98 03/15/20 06:00 Temperature 36.9 C Pulse Rate 79 Respiratory Rate 16 Blood Pressure 146/66 H Pulse Oximetry 95 Intake/Output Intake/Output: Intake & Output 03/12/20 03/13/20 03/14/20 03/15/20 23:59 23:59 23:59 23:59 Intake Total 720 720 900 240 Balance 720 720 900 240 Meds/Results Medications: Active Medications Generic Name Dose Route Start Last Admin Trade Name Freq PRN Reason Stop Dose Admin Acetaminophen 650 mg 03/05/20 14:29 03/15/20 03:07 Tylenol Tablet PO 650 mg Q4H PRN Administration Pain Artificial Tears 1 drop 03/07/20 12:31 03/07/20 14:13 Artificial Tears EACH EYE 1 drop QID PRN Administration Dry Eye(s) Aspirin 81 mg 03/06/20 09:00 03/15/20 09:03 Aspirin Chewable PO 81 mg DAILY KALEN Administration Buspirone HCl 5 mg 03/06/20 13:00 03/15/20 09:03 Buspar PO 5 mg TID KALEN Administration Calcium Carbonate 400 mg 03/09/20 09:24 03/09/20 09:55 Tums PO 400 mg Q6H PRN Administration Indigestion Clonazepam 2 mg 03/05/20 21:00 03/14/20 20:35 Klonopin Tablet PO 2 mg HS KALEN Administration Clopidogrel Bisulfate 75 mg 03/06/20 09:00 03/15/20 09:03 Plavix PO 75 mg DAILY KALEN Administration Hydralazine HCl 100 mg 03/13/20 14:00 03/15/20 05:25 Apresoline Tablet PO 100 mg Q8HR KALEN Administration Labetalol HCl 100 mg 03/05/20 21:00 03/14/20 20:35 Trandate PO 100 mg HS KALEN Administration Loperamide HCl 2 mg 03/09/20 14:50 03/09/20 17:12 Loperamide Hcl PO 2 mg PRN PRN Administration Diarrhea Que
[2020-03-14 14:00] VITALS: BP 161/64; PULSE 83; RESP 18; TEMP 36.4; O2SAT 100
[2020-03-14 20:35] VITALS: PULSE 78
[2020-03-14] MEDS: CLONAZEPAM 0.5 MG TAB 2 MG PO (20:35)
[2020-03-14] MEDS: LABETALOL HCL 100 MG TABLET PO (20:35)
[2020-03-14 22:00] VITALS: BP 151/74; PULSE 75; RESP 18; TEMP 36.8; O2SAT 98
[2020-03-15] MEDS: ACETAMINOPHEN 325 MG TABLET 650 MG PO (03:07)
[2020-03-15] MEDS: hydrALAZINE HCL 50 MG TABLET 100 MG PO ×3 (05:25→21:07)
[2020-03-15 06:00] VITALS: BP 146/66; PULSE 79; RESP 16; TEMP 36.9; O2SAT 95
[2020-03-15] MEDS: busPIRone HCL 5 MG TABLET PO ×3 (09:03→17:12)
[2020-03-15] MEDS: CLOPIDOGREL BISULFATE 75 MG TABLET PO (09:03)
[2020-03-15] MEDS: ASPIRIN 81 MG CHEWABLE TABLET PO (09:03)
[2020-03-15 14:00] VITALS: BP 176/69; PULSE 80; RESP 19; TEMP 36.8; O2SAT 100
--- NOTE | 2020-03-15 14:53 | WPDNEURORHBP ---
Subjective Date/time seen: 03/15/20 14:53 Interval history: this 79-year-old woman with lifelong history of anxiety and depression a little paranoia and insomnia as here post pontine stroke with left-sided motor weakness she is clearly improving her blood pressure is better controlled with the increase in hydralazine no side effects from it noted patient is happier than yesterday not as sleepy fatigued tired denied any headache nausea vomiting chest pain or shortness of Review of Systems Review of Systems: All systems reviewed & are unremarkable except as noted in HPI and below Functional Status Ambulation Ability Ability to Ambulate 10 Feet: Standby Assistance Ability to Ambulate 50 Feet With 2 Turns: Standby Assistance Ability to Ambulate 150 Feet: Standby Assistance Ambulation Assistive Devices: Walker, Wheeled Transfers Ability Ability to Transfer In/Out of Chair: Contact Guard Exam Const: General: comfortable and no acute distress HENMT: General nose exam: Normal nares present Mouth: Yes moist mucous membranes Eyes: General: appearance normal, both eyes and all related structures Neck: Neck: supple and no JVD Resp: Effort & Inspection: normal respiratory effort Auscultation: clear to auscultation bilaterally Cardio: Rate: regular rate Rhythm: regular rhythm GI: GI Palp: Yes Soft to palpation Auscultation: normal bowel sounds Skin: General skin exam: normal color and no rashes or lesions noted Neuro: Other: patient is awake and alert well oriented in time place and person improving left-sided hemiparesis improved little bit of paranoia and anxiet Extrem: General: normal to inspection Psych: Mental Status: mental status grossly normal Objective Data Vital Signs Vital Signs: Vital Signs - 24 hr 03/14/20 20:35 03/14/20 22:00 03/15/20 06:00 Temperature 36.8 C 36.9 C Pulse Rate 78 75 79 Respiratory Rate 18 16 Blood Pressure 151/74 H 146/66 H Pulse Oximetry 98 95 Intake/Output Intake/Output: Intake & Output 03/12/20 03/13/20 03/14/20 03/15/20 23:59 23:59 23:59 23:59 Intake Total 720 720 900 660 Balance 720 720 900 660 Meds/Results Medications: Active Medications Generic Name Dose Route Start Last Admin Trade Name Freq PRN Reason Stop Dose Admin Acetaminophen 650 mg 03/05/20 14:29 03/15/20 03:07 Tylenol Tablet PO 650 mg Q4H PRN Administration Pain Artificial Tears 1 drop 03/07/20 12:31 03/07/20 14:13 Artificial Tears EACH EYE 1 drop QID PRN Administration Dry Eye(s) Aspirin 81 mg 03/06/20 09:00 03/15/20 09:03 Aspirin Chewable PO 81 mg DAILY KALEN Administration Buspirone HCl 5 mg 03/06/20 13:00 03/15/20 13:56 Buspar PO 5 mg TID KALEN Administration Calcium Carbonate 400 mg 03/09/20 09:24 03/09/20 09:55 Tums PO 400 mg Q6H PRN Administration Indigestion Clonazepam 2 mg 03/05/20 21:00 03/14/20 20:35 Klonopin Tablet PO 2 mg HS KALEN Administration Clopidogrel Bisulfate 75 mg 03/06/20 09:00 03/15/20 09:03 Plavix PO 75 mg DAILY KALEN Administration Hydralazine HCl 100 mg 03/13/20 14:00 03/15/20 13:56 Apresoline Tablet PO 100 mg Q8HR KALEN Administration Labetalol HCl 100 mg 03/05/20 21:00 03/14/20 20:35 Trandate PO 100 mg HS KALEN Administration Loperamide HCl 2 mg 03/09/20 14:50 03/09/20 17:12 Loperamide Hcl PO 2 mg PRN PRN Administration Diarrhea Quetiapine 6.25mg 1 each 03/09/20 21:00 03/14/20 20:36 Tablet PO 04/08/20 21:01 1 each HS KALEN Administration Polyethylene Glycol 17 gm 03/14/20 09:09 03/14/20 09:24 Miralax PO 17 gm QAM PRN Administration Constipation Progress Note: A&P Assessment and Plan (1) Uncontrolled hypertension: Code(s): I10 - Essential (primary) hypertension Status: Acute (2) Klonopin use disorder, moderate, in controlled environment, dependence: Code(s): F13.20 - Sedative, hyp
[2020-03-15] MEDS: CLONAZEPAM 0.5 MG TAB 2 MG PO (21:06)
[2020-03-15 21:08] VITALS: PULSE 68
[2020-03-15] MEDS: LABETALOL HCL 100 MG TABLET PO (21:08)
[2020-03-15 22:00] VITALS: BP 167/70; PULSE 86; RESP 18; TEMP 36.8; O2SAT 100
[2020-03-16] MEDS: hydrALAZINE HCL 50 MG TABLET 100 MG PO ×3 (05:30→20:31)
[2020-03-16 06:00] VITALS: BP 139/57; PULSE 78; RESP 18; TEMP 36.6; O2SAT 97
[2020-03-16] MEDS: busPIRone HCL 5 MG TABLET PO ×3 (09:58→17:33)
[2020-03-16] MEDS: ASPIRIN 81 MG CHEWABLE TABLET PO (09:59)
[2020-03-16] MEDS: CLOPIDOGREL BISULFATE 75 MG TABLET PO (09:59)
[2020-03-16 10:00] VITALS: PULSE 86; RESP 18
[2020-03-16 14:00] VITALS: BP 161/65; PULSE 86; RESP 18; TEMP 36.9; O2SAT 95
[2020-03-16] MEDS: CLONAZEPAM 0.5 MG TAB 2 MG PO (20:30)
[2020-03-16 20:32] VITALS: PULSE 78
[2020-03-16] MEDS: LABETALOL HCL 100 MG TABLET PO (20:32)
[2020-03-16 22:00] VITALS: BP 142/74; PULSE 79; RESP 18; TEMP 36.3; O2SAT 98
[2020-03-17] MEDS: ACETAMINOPHEN 325 MG TABLET 650 MG PO (05:00)
[2020-03-17] MEDS: hydrALAZINE HCL 50 MG TABLET 100 MG PO ×2 (05:01→14:02)
[2020-03-17 06:00] VITALS: BP 147/65; PULSE 86; RESP 18; TEMP 36.7; O2SAT 97
[2020-03-17 08:00] VITALS: PULSE 93; RESP 16
[2020-03-17] MEDS: busPIRone HCL 5 MG TABLET PO ×3 (09:38→17:45)
[2020-03-17] MEDS: CLOPIDOGREL BISULFATE 75 MG TABLET PO (09:38)
[2020-03-17] MEDS: ASPIRIN 81 MG CHEWABLE TABLET PO (09:38)
[2020-03-17 15:26] VITALS: BP 142/64; PULSE 93; RESP 16; TEMP 36.7; O2SAT 100
--- NOTE | 2020-03-17 18:44 | WPDNEURORHBP ---
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 from but she has really significantly improved and has done remarkably well she will be discharged tomorrow her main good I have has been the side effects from the antihypertensive medication and she wants me to change her hydralazine to reduce dosage she is also asking me to put her on lisinopril although it is listed as an allergy and she says she is not allergic to it She denies any headache nausea vomiting chest pain or shortness of breath Review of Systems Review of Systems: All systems reviewed & are unremarkable except as noted in HPI and below Functional Status Ambulation Ability Ability to Ambulate 10 Feet: Independent Ability to Ambulate 50 Feet With 2 Turns: Independent Ability to Ambulate 150 Feet: Independent Ambulation Assistive Devices: Walker, Wheeled Transfers Ability Ability to Transfer In/Out of Chair: Independent Exam Const: General: comfortable and no acute distress HENMT: General nose exam: Normal nares present Mouth: Yes moist mucous membranes Eyes: General: appearance normal, both eyes and all related structures Neck: Neck: supple and no JVD Resp: Effort & Inspection: normal respiratory effort Auscultation: clear to auscultation bilaterally Cardio: Rate: regular rate Rhythm: regular rhythm GI: GI Palp: Yes Soft to palpation Auscultation: normal bowel sounds Skin: General skin exam: normal color and no rashes or lesions noted Neuro: Other: patient is awake alert has normal speech and language function little paranoid and anxious as usual claiming that she cannot tolerate the hydralazine and actually demands that I would change it to or reduce the dosage and add lisinopril which initially we thought that she is allergic to however she says she is not allergic to lisinopril Extrem: General: normal to inspection Psych: Mental Status: mental status grossly normal Other: not psychotic but remains anxious and 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 Objective Data Vital Signs Vital Signs: Vital Signs - 24 hr 03/16/20 20:32 03/16/20 22:00 03/17/20 06:00 Temperature 36.3 C L 36.7 C Pulse Rate 78 79 86 Respiratory Rate 18 18 Blood Pressure 142/74 H 147/65 H Pulse Oximetry 98 97 03/17/20 08:00 03/17/20 15:26 Temperature 36.7 C Pulse Rate 93 93 Respiratory Rate 16 16 Blood Pressure 142/64 H Pulse Oximetry 100 Intake/Output Intake/Output: Intake & Output 03/14/20 03/15/20 03/16/20 03/17/20 23:59 23:59 23:59 23:59 Intake Total 900 900 900 720 Balance 900 900 900 720 Meds/Results Medications: Active Medications Generic Name Dose Route Start Last Admin Trade Name Freq PRN Reason Stop Dose Admin Acetaminophen 650 mg 03/05/20 14:29 03/17/20 05:00 Tylenol Tablet PO 650 mg Q4H PRN Administration Pain Artificial Tears 1 drop 03/07/20 12:31 03/07/20 14:13 Artificial Tears EACH EYE 1 drop QID PRN Administration Dry Eye(s) Aspirin 81 mg 03/06/20 09:00 03/17/20 09:38 Aspirin Chewable PO 81 mg DAILY KALEN Administration Buspirone HCl 5 mg 03/06/20 13:00 03/17/20 17:45 Buspar PO 5 mg TID KALEN Administration Calcium Carbonate 400 mg 03/09/20 09:24 03/09/20 09:55 Tums PO 400 mg Q6H PRN Administration Indigestion Clonazepam 2 mg 03/05/20 21:00 03/16/20 20:30 Klonopin Tablet PO 2 mg HS KALEN Administration Clopidogrel Bisulfate 75 mg 03/06/20 09:00 03/17/20 09:38 Plavix PO 75 mg DAILY KALEN Administration Hydralazine HCl 50 mg 03/17/20 17:59 Apresoline Tablet PO Q8HR KALEN Labetalol HCl 100 mg 03/05/20 21:00 03/16/20 20:32 Trandate PO 100 mg HS KALEN
[2020-03-17] MEDS: lisinopriL 10 MG TABLET PO (20:44)
[2020-03-17] MEDS: hydrALAZINE HCL 50 MG TABLET PO (20:45)
[2020-03-17] MEDS: LABETALOL HCL 100 MG TABLET PO (20:45)
[2020-03-17] MEDS: CLONAZEPAM 0.5 MG TAB 2 MG PO (20:47)
[2020-03-17 22:00] VITALS: BP 160/69; PULSE 90; RESP 18; TEMP 36.8; O2SAT 100
[2020-03-18] MEDS: hydrALAZINE HCL 50 MG TABLET PO ×2 (05:39→13:09)
[2020-03-18 06:00] VITALS: BP 128/61; PULSE 72; RESP 18; TEMP 37.4; O2SAT 98
[2020-03-18] MEDS: CLOPIDOGREL BISULFATE 75 MG TABLET PO (09:47)
[2020-03-18] MEDS: busPIRone HCL 5 MG TABLET PO ×2 (09:47→13:09)
[2020-03-18] MEDS: ASPIRIN 81 MG CHEWABLE TABLET PO (09:47)
--- NOTE | 2020-03-18 14:46 | PCDIET ---
Nutrition Follow-Up Complete: Nutrition Diagnosis: Predicted suboptimal oral intake related to decreased appetite as evidenced by intakes 50-75% thus far. Nutrition Goal: Patient to consume 75% of meals/supplements. Goal met. Patient consuming 75-100% of majority of meals. Remains on heart healthy diet with Ensure Enlive 1x daily which is appropriate. Patient continues to take supplement daily. Last recorded weight is 85 kg. Recommend obtaining new weight. Bowel Motility: Last documented BM on 03/16/20. Labs Reviewed: Hgb (9.4), Hct (29.8), Na (131) Meds Noted: Miralax prn, Loperamide prn Additional Notes: No documented skin breakdown. Will continue to monitor with same goal. Nutrition Monitoring and Evaluation: Follow up every 7 days.
--- NOTE | 2020-03-23 11:37 | DS_ITS ---
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 DISCHARGE ACTIVE COMORBID CONDITIONS: 1. Anxiety and depression. 2. History of back surgery. REASON FOR ADMISSION: This 79-year-old right-handed female with long-term history of anxiety with depression, admitted to [facility] on 03/01/2020 for left-sided weakness along with the pain generalized all over. The patient had been given prednisone by the family physician because of the complaint of pain. At that time, she had noted the left-sided weakness also, but on the day of admission, she was unable to get up herself though she was able to crawl to get the assistance. Her initial CK was recorded as 1639 with LDL of 84, and sed rate of 31. Negative CT scan of the brain with brain MRI showing acute ischemic stroke in the para-midline pontomedullary junction along with the chronic small-vessel disease. The echocardiogram was showing 65% ejection fraction. She was given aspirin 81 mg daily with Plavix and treated with the IV fluids. Her blood pressure was controlled with labetalol and started hydralazine 3 times a day to go with a half dose of labetalol. Physical examination revealed left-sided weakness with balance difficulties and the patient was discharged to rehab on Lovenox for DVT prophylaxis. LEVEL OF FUNCTION AT THE TIME OF ADMISSION: The patient required setup for the eating, supervision for oral hygiene, toileting, partial assistance for bathing, upper body dressing. She was dependent for lower body dressing, footwear, setup for the rolling in bed, independent for sit to lying, partial assistance for lying to sitting, sit to stand, chair transfer, toilet transfer, car transfer, walking 10 feet, 50 feet with 2 turns. She was unable to walk 150 feet. She required partial assistance for walking 10 feet on uneven surfaces, curb or step, 4 steps. She was unable to take 12 steps. She was dependent for picking up objects. She was independent of wheelchair 50 feet and she was unable to take the wheelchair to 150 feet. ANTICIPATED REHAB GOALS AT THE TIME OF ADMISSION: To make her independent in all the modalities except requiring supervision for curb or step, 4 steps, partial assistance for 12 steps. LEVEL OF FUNCTION AT THE TIME OF DISCHARGE: She became independent eating and oral hygiene, required setup for toileting, became independent bathing, upper body dressing, lower body dressing, footwear, rolling in bed, sit to lying, lying to sitting, sit to stand, chair transfer. She required supervision for toilet transfer, car transfer. She was independent for walking 10 feet, 50 feet with 2 turns and walking 150 feet. She required supervision for 10 feet on uneven surfaces. She required partial assistance for curb or step, supervision 4 steps, 12 steps, and she was independent for picking up objects, wheelchair 50 feet, and unable to take the wheelchair for 150 feet. HOSPITAL COURSE: During the hospitalization, she was actively involved in the physical therapy and occupation therapy. She was not seen by any other outside sales consultant. At the time of discharge, she was able to ambulate 10 feet independently, 50 feet with 2 turns independently, 150 feet independently using the wheeled walker and she was in and out of chair independently. Her general physical examination remained stable so as the neurological examination and vital signs were stable too. At the time of discharge, she was instructed to may shower, no driving. DISCHARGE MEDICATIONS: Included 1. Artificial Tears in the left eye q.i.d. 2. Calcium carbonate 400 mg q.6 hours. 3. Lisinopril 10 mg at night. 4. Tylenol 650 mg q.4 hours.
== END 2020-03-18 14:10 | disposition home health service (06) | DRG 57 ==
PROVIDERS: Admitting Provider Psychiatry & Neurology Neurology; Visit Provider Psychiatry & Neurology Neurology
DX: I69.354 Hemiplegia and hemiparesis following cerebral infarction affecting left non-dominant side (principal); F13.20 Sedative, hypnotic or anxiolytic dependence, uncomplicated; E87.1 Hypo-osmolality and hyponatremia; E78.5 Hyperlipidemia, unspecified; F41.8 Other specified anxiety disorders; G47.09 Other insomnia; G47.33 Obstructive sleep apnea (adult) (pediatric); I10 Essential (primary) hypertension; Z85.528 Personal history of other malignant neoplasm of kidney; Z79.02 Long term (current) use of antithrombotics/antiplatelets
CPT/HCPCS: 36415; 80048; 80061; 85025; 96125; 97110; 97116; 97162; 97167; 97530; 97535; A9270

== ENCOUNTER 2022-10-24 18:30 | Inpatient (IN) | payer MEDICARE, SELFPAY ==
--- NOTE | ~2022-10-24 | MR_ITS ---
EXAMINATION: MR brain/brain stem wo con DATE: 10/30/2022 14:27 INDICATION: Ataxia. TECHNIQUE: Magnetic resonance imaging (MRI) of the brain and brainstem was performed without intraven ous contrast. COMPARISON: None. FINDINGS: There are scattered foci of old microhemorrhage in the brainstem and cerebellum. There is i ncreased T2-weighted signal intensity throughout the medulla with enlargement of the medulla. There a re scattered areas of nonspecific increased T2-weighted signal intensity in the cerebral white matter . There is an old infarct involving the right basal ganglia and anterior limb right internal capsule. There is an old lacunar infarct in left thalamus. There is an old infarct in the shara on the left. T here is no acute ischemic infarct or abnormal mass lesion. There is ex vacuo dilatation of frontal ho rn of right lateral ventricle. The paranasal sinuses are clear. The mastoid air cells are normal. The re are likely changes of ocular lens replacement surgeries. IMPRESSION: 1. Increased T2-weighted signal intensity throughout the medulla with enlargement of the medulla. Thi s finding is suspicious for a glioma or subacute infarct. Postcontrast brain MRI is recommended. 2. Old infarcts involving the right basal ganglia, anterior limb right internal capsule, left thalamu s, and left side of the shara. 3. Moderate nonspecific cerebral white matter disease, which likely represents chronic small vessel i schemic disease. 4. Scattered foci of old microhemorrhage in the brainstem and cerebellum. Reviewed, dictated and finalized at location A. NEYMAN PAINTER IMPRESSION: 1. Increased T2-weighted signal intensity throughout the medulla with enlargeme nt of the medulla. This finding is suspicious for a glioma or subacute infarct. Postcontrast brain MRI is recommended. 2. Old infarcts involving the right basal ganglia, anterior limb right internal capsule, left thalamus, and left side of the shara. 3. Moderate nonspecific cerebral white matter disease, which likely represents chronic small vessel ischemic disease. 4. Scattered foci of old microhemorrhage in the brainstem and cerebellum.
--- NOTE | ~2022-10-24 | MR_ITS ---
EXAMINATION: MR brain/brain stem w con DATE: 10/30/2022 17:04 INDICATION: Increased T2 signal and enlargement of the medulla concerning for either granuloma or sub acute infarct on prior noncontrast MRI. TECHNIQUE: Magnetic resonance imaging (MRI) of the brain and brainstem was performed with 17 mL Multi thalia intravenous contrast. Sequences included sagittal and axial, sagittal and coronal T1-weighted S E. COMPARISON: Brain MR dated 10/30/2022 FINDINGS: There are few contrast enhanced vessels along the periphery of the lingula primarily posteriorly. No definitive parenchymal enhancement in the region of the increased T2 signal and enlargement of the me dulla to suggest subacute infarct. No other abnormally enhancing brain lesions. IMPRESSION: 1. 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 Reviewed, dictated and finalized at location A. PPING MACHINE OPERATOR IMPRESSION: 1. No abnormal parenchymal enhancement corresponding to the region of increased T2 signal in the medulla to suggest subacute infarct which would favor low-gra de glioma over subacute infarct.
--- NOTE | ~2022-10-24 | XR_ITS ---
EXAMINATION: XR chest 1V portable Exam Date/Time: 10/24/2022 19:35 VOLUNTEER COORDINATOR HISTORY: weakness Comparison: 12/11/2014. RESULT: Lines, tubes, and devices: Partially visualized spinal fusion hardware. Lungs and pleura: Diffuse reticulonodular opacities. Cardiomediastinal silhouette: Stable. Other: No acute osseous or upper abdominal finding. IMPRESSION: Pulmonary opacities may represent senescent change and/or bronchiolitis, as can be seen with atypical infection, asthma, aspiration, and small airways disease. Reviewed, dictated and finalized at location K. NTEER COORDINATOR IMPRESSION: Pulmonary opacities may represent senescent change and/or bronchiolitis, as can be seen with atypical infection, asthma, aspiration, and small airways disease .
--- NOTE | ~2022-10-24 | CT_ITS ---
EXAMINATION: CT abdomen pelvis w con DATE: 10/24/2022 21:01 INDICATION: low abdominal pain, constipation TECHNIQUE: Computed tomography (CT) of the abdomen and pelvis was performed with 100 mL Omnipaque-350 intravenous contrast. Automated exposure control and iterative reconstruction technique were employe d. The dose-length product was 686.16 mGy-cm. COMPARISON: 08/28/2013. FINDINGS: Lower thorax: Unremarkable Liver: Right liver lobe cysts, stable. Biliary/Gallbladder: Gallbladder is normal. No bile duct dilation. Pancreas: No mass or duct dilation. Spleen: Normal. Adrenals:Stable 11 mm indeterminate density nodule on the left Kidneys: No mass, stone, or hydronephrosis. Right lower pole scar. GI tract: Distal esophageal and gastric wall edema, as can be seen with esophagitis/gastritis No smal l bowel dilation. The rectum is dilated to 8.7 cm by formed stool, with surrounding inflammatory hamilton ge and presacral edema. Appendix not visualized. Diverticulosis without diverticulitis. Mesentery/Peritoneum: No ascites, mass, or free air. Retroperitoneum: No mass. Atherosclerotic abdominal aortic and/or arterial calcifications. Pelvis: The bladder is decompressed by a Pascal with wall edema and mild surrounding mild inflammatory change. The uterus is likely surgically absent. Soft Tissues: Soft tissues and body wall unremarkable. Bones: No acute osseous finding. Uncomplicated thoracolumbar fusion hardware spanning T1-L5. IMPRESSION: Fecal impaction with findings concerning for stercoral colitis. Possible cystitis, correlate with uri nalysis. Reviewed, dictated and finalized at location K. ION INTERN IMPRESSION: Fecal impaction with findings concerning for stercoral colitis. Possible cystit is, correlate with urinalysis.
--- NOTE | ~2022-10-24 | MR_ITS ---
MRI of the lumbar spine Clinical History: Leg weakness Technique: Axial T2-weighted images, and sagittal T1-weighted, T2-weighted, and T2 fat-sat images wer e acquired. Correlation made with CT scan dated 10/24/2022. Findings: There is extensive posterior fixation hardware extending from T11 through L5, with bilatera l rods and transpedicular screws present. There is extensive associated susceptibility artifact which obscures visualization of most the osseous structures. Sacrum appears unremarkable in terms of bone marrow signal characteristics and alignment. Lumbar vertebral bodies and posterior elements are very poorly evaluated. Spinal canal is nearly completely obscured by susceptibility artifact, rendering the exam Nondiagnostic in this regard. Paravertebral soft tissues are unremarkable. Impression: Extremely limited, nearly nondiagnostic exam due to extensive spinal fixation hardware and associated susceptibility artifact. Reviewed, dictated and finalized at location [] SHAKER Impression: Extremely limited, nearly nondiagnostic exam due to extensive spinal fixation h ardware and associated susceptibility artifact.
--- NOTE | ~2022-10-24 | MR_ITS ---
MRI of the thoracic spine Clinical History: Weakness Technique: Axial T2-weighted images, and sagittal T1-weighted, T2-weighted, and STIR images were acqu ired. Findings: Posterior fixation hardware is present extending from T11 through the visualized lumbar spi ne, with bilateral rods and transpedicular screws present. There is associated extensive susceptibili ty artifact at the T11 and T12 levels, precluding adequate visualization of the osseous structures ar e spinal canal at these levels. Remainder of the more proximal thoracic spine demonstrate no fracture or subluxation. There is mild S -shaped scoliosis of the thoracic spine. No suspicious bone marrow signal abnormality identified. No significant disc bulge or herniation seen in the thoracic spine through the T10 level. No spinal c anal stenosis, cord compression, or neural foraminal narrowing evident in the visualized thoracic spi ne. No epidural mass or collection seen. No paravertebral soft tissue abnormality identified. Impression: Mild S-shaped scoliosis of the thoracic spine. Posterior fixation hardware from T11 through the lumbar spine with associated susceptibility artifact . No other significant abnormality identified. Reviewed, dictated and finalized at location [] LER CHEF OR COOK Impression: Mild S-shaped scoliosis of the thoracic spine. Posterior fixation hardware from T11 through the lumbar spine with associated s usceptibility artifact. No other significant abnormality identified.
--- NOTE | ~2022-10-24 | XR_ITS ---
EXAMINATION: XR abdomen obstructive series DATE: 10/30/2022 09:31 INDICATION: Abdominal pain. TECHNIQUE: Upright and supine views of the abdomen on 3 radiographs were obtained. COMPARISON: CT abdomen and pelvis 10/24/22 FINDINGS: A stool ball distends the rectum. There are no dilated loops of small bowel. There are hamilton ges of posterior fusion procedure in thoracolumbar spine. No free intraperitoneal gas. IMPRESSION: 1. A stool ball distends the rectum. Reviewed, dictated and finalized at location A. WIRE PHOTO OPERATOR
[2022-10-24 18:36] VITALS: BP 156/88; PULSE 96; RESP 14; TEMP 36.6; O2SAT 95
--- NOTE | 2022-10-24 19:25 | ED.WEAKNESS ---
HPI - Weakness General Chief complaint: Weakness Stated complaint: weakness Time Seen by Provider: 10/24/22 18:36 History of Present Illness HPI Narrative: Patient is an 82-year-old female with a history of CVA with residual left-sided deficits, hypertension, anxiety presenting with generalized weakness. Patient states that she has struggled with left-sided weakness since her stroke 1.5 years ago. States that she had rehab here at some point and had a lot of improvement. States that she was again recently in rehab at [facility] due to worsening weakness but she ended up checking out as she did not like the care there. Unfortunately, she has continued to become progressively weaker. She is now unable to transfer herself from her chair to her wheelchair which is her baseline. She does live at home and her family is unable to care for her. Her family feels that she again needs rehab and physical therapy. Patient also complains that she is constipated and has had worsening abdominal pain. She denies fevers, headache, chest pain, shortness of breath, cough, vomiting, new numbness or focal weakness. Patient has a Pascal in place due to urinary retention. This is due to be removed in 3 weeks. Related Data Home Medications Medication Instructions Recorded Confirmed acetaminophen 325 mg tablet 650 mg PO Q4H PRN Pain 03/05/20 10/25/22 aspirin 81 mg chewable tablet 81 mg PO DAILY 03/05/20 10/25/22 clonazepam 2 mg tablet 2 mg PO HS 03/05/20 10/25/22 quetiapine 25 mg tablet 6.25 mg PO HS 03/05/20 10/25/22 amlodipine 10 mg tablet 10 mg PO DAILY 10/25/22 10/25/22 losartan 50 mg tablet 50 mg PO DAILY 10/25/22 10/25/22 Allergies Allergy/AdvReac Type Severity Reaction Status Date / Time hydrochlorothiazide Allergy Unknown Verified 10/25/22 04:34 latex Allergy Unknown Verified 10/25/22 04:34 losartan Allergy Unknown Verified 10/25/22 04:34 ramipril Allergy Unknown Verified 10/25/22 04:34 cephalexin [From Keflex] AdvReac Nausea and Verified 10/25/22 04:34 Vomiting lisinopril AdvReac Cough Verified 10/25/22 04:34 tape Allergy Intermediate Other Uncoded 03/05/20 14:14 Review of Systems Review of Systems: All systems reviewed & are unremarkable except as noted in HPI and below PMFSH Past Medical History Medical History Anxiety and depression History of electroconvulsive therapy Hypertension Klonopin use disorder, moderate, in controlled environment, dependence Uncontrolled hypertension Family History Family History Mother Congestive heart failure Hypertension Sibling Prostate carcinoma Sibling Prostate carcinoma Father Brain tumor Sibling Breast cancer Multiple sclerosis Social History Social History Years smoked: 6 Smoking status: Former smoker Second hand tobacco smoke exposure: No Smoking end date: 11/15/1960 Alcohol intake: never Substance use: never Substance use type: does not use Lack of Transportation: No Lack of Food: Never True Current Housing: I Have Housing Concerned About Future Housing: No Difficulty Paying Gas/Electric Bills: No Difficulty Paying for Meds: No Currently Unemployed: No Education: Associate Degree Difficulty w/ Childcare or Family Care: No Spiritual care concerns: No Agree to blood products: Yes Exam Narrative: GENERAL: Chronically ill-appearing but in no acute distress, pleasant and cooperative HEAD: Normocephalic, atraumatic. EYES: PERRLA and EOMI. ENT: Nares clear, no rhinorrhea or epistaxis. Mucous membranes moist. NECK: Supple. CHEST: Clear to auscultation. No respiratory distress. HEART: Regular rate and rhythm. No murmur heard. Normal peripheral pulses. ABDOMEN: Soft, nontender, nondistended, normal active bowel sounds. EXTREMITIES: Normal range of motion. No e
--- NOTE | 2022-10-24 19:32 | ECG_ITS ---
Measurements Intervals [place] Rate: 89 P: 66 LA: 167 QRS: 8 QRSD: 96 T: 106 QT: 343 QTc: 418 Interpretive Statements SINUS RHYTHM MILD NONSPECIFIC T-WAVE ABNORMALITY NO PREVIOUS ECG AVAILABLE FOR COMPARISON Electronically Signed On 10-25-2022 8:34:53 PUBLIC ADDRESS SERVICER by Seth Fischer M.D.
[2022-10-24 20:00] VITALS: BP 120/89; PULSE 74; RESP 18; TEMP 36.8; O2SAT 99
[2022-10-24 20:10] LABS: Appearance Urine Cloudy (Clear); Basophils Percent Auto 0.3 % (0.2-1.2); Bilirubin Urine Negative (Negative); Blood Urine 2+ (Negative); Color Urine Yellow (Yellow); Eosinophils Percent Auto 0.2 % (0-4.4); Glucose Urine UA Negative (Negative); Hematocrit 39.1 % (37.0-47.0); Hemoglobin 13.1 g/dL (12.0-15.0); Immature Granulocyte Absolute 0.07 K/mm3 (0.00-0.031); Immature Granulocyte Percent A 0.5 % (0-0.5); Ketones Urine Negative (Negative); Leukocyte Esterase Ur 3+ LEU/UL (Negative); Lymphocytes Absolute Auto 1.36 K/mm3 (0.9-3.2); Lymphocytes Percent Auto 8.8 % (18.3-44.2); Mean Corpuscular HGB Conc 33.5 g/dl (32-36); Mean Corpuscular Hemoglobin 28.1 pg (26-34); Mean Corpuscular Volume 83.9 fl (80-100); Mean Platelet Volume 7.6 fl (7.4-10.4); Monocytes Percent Auto 6.6 % (2.6-8.5); Neutrophils Percent Auto 83.6 % (45.5-73.1); Nitrate Urine Negative (Negative); Platelet Count Result 409 k/mm3 (150-375); Protein Urine 1+ mg/dL (Negative); Red Blood Count 4.66 M/mm3 (4.2-5.4); Red Cell Distribution Width 13.9 % (11.5-14.5); Specific Grav Ur 1.015 (1.001-1.035); Urobilinogen Urine 0.2 mg/dL (<2.0); White Blood Count 15.5 K/mm3 (4.5-10.0); pH Urine 7.5 (5.0-9.0)
[2022-10-24 20:20] LABS: Alanine Aminotransferase 24 U/L (6-35); Albumin Level 4.2 g/dL (3.5-5.1); Alkaline Phosphatase 95 U/L (38-126); Anion Gap 5 mmol/L (8-16); Aspartate Amino Transferase 22 U/L (14-36); Bilirubin,Total 0.8 mg/dL (0.2-1.3); Blood Urea Nitrogen 18 mg/dL (7-17); Calcium 9.3 mg/dL (8.4-10.2); Carbon Dioxide 29 mmol/L (22-30); Chloride 99 mmol/L (98-107); Estimated CRCL calculation 52 ml/min; Estimated Glomerular Filt Rate > 60; Glucose 112 mg/dL (65-110); Lipase 127 U/L (23-300); Sodium 133 mmol/L (137-145)
[2022-10-24 20:21] LABS: Amorphous Sediment Urine Few; Bacteria Urine Trace /hpf; RBC Urine 51-75 /hpf (0-2); Squamous Epithelial Cell Urine Few /hpf (Few); WBC Clumps Urine Present /HPF; WBC Urine >75 /hpf
[2022-10-24 20:22] LABS: Add Urine Microscopic? YES
[2022-10-24 20:31] LABS: Troponin I < 0.012 ng/mL (0.000-0.034)
[2022-10-24 20:46] LABS: Influenza B QL RT-PCR Negative (Negative); SARS-CoV-2 RNA PCR Negative
[2022-10-24] MEDS: SULFAMETHOXAZOLE/TRIMETHOPRIM 800/160 MG DS TABLET 1 TAB PO (21:07)
[2022-10-24 21:11] LABS: Influenza A QL RT-PCR Positive (Negative)
[2022-10-24 21:45] VITALS: BP 110/65; PULSE 87; RESP 18; TEMP 36.8; O2SAT 98
[2022-10-24 23:00] VITALS: BP 122/89; PULSE 95; RESP 18; TEMP 36.8; O2SAT 98
[2022-10-24] MEDS: OSELTAMIVIR PHOSPHATE ORAL SUSP 30 MG/5 ML SYRINGE PO (23:08)
[2022-10-24 23:28] LABS: Troponin I < 0.012 ng/mL (0.000-0.034)
[2022-10-25] VITALS (7 sets, daily range): BP systolic 127–150; BP diastolic 64–81; PULSE 74–83; RESP 16–20; TEMP 35.7–36.9; O2SAT 94–99; BMI 29.2
[2022-10-25] MEDS: MAGNESIUM HYDROXIDE SUSP 30 ML UDC PO (00:56)
[2022-10-25] MEDS: HYDROcodone/acetaminophen (*CRX) 5-325 MG TABLET 1 TAB PO (01:51)
--- NOTE | 2022-10-25 04:09 | PC.NURSE ---
Report given to Rico SANTIAGO
--- NOTE | 2022-10-25 04:30 | ADMGEN ---
This patient, Susana Gaming, was admitted to [facility] Surg Room 326-01. Patient/family oriented to hospital policies and general routines including ID bracelet, bed and alarms, visiting hours, pain management, procedures, bathroom and other care routines, personal items, smoking policy, room service/diet, and visiting hours. Information on how to activate the Rapid Response Team has been discussed. Patient/Family are encouraged to report perceived risks to care and to ask questions if they do not understand what they are told or what they should do.
[2022-10-25] MEDS: OSELTAMIVIR PHOSPHATE ORAL SUSP 30 MG/5 ML SYRINGE PO ×2 (08:49→20:18)
[2022-10-25] MEDS: amLODIPine BESYLATE 5 MG TABLET 10 MG PO (09:30)
--- NOTE | 2022-10-25 14:10 | PM.IMHP ---
H&P: HPI History of Present Illness Date/Time: 10/25/22 14:10 Chief Complaint: generalized weakness Narrative: patient is 82-year-old pleasant female with previous history of CVA with residual left-sided deficit, hypertension, generalized anxiety, came to the hospital complaining of generalized weakness and not feeling well. Patient has been at the rehab facility recently it has gotten progressively worse in for the last 2-3 days, patient states she feels weak also has a nonproductive cough for also has worsening of constipation many times she has to manually disimpact herself. Patient currently on 4 stool softeners with minimal relief. Patient denies any chest pains any nausea any vomiting any headaches any dizziness any palpitation no urgency or frequency of urination. patient has a Pascal in place due to urinary retention which was removed about 3 weeks ago. Patient had a stroke about 1 and half years ago and still struggles with left-sided weakness Review of Systems Review of Systems: No fevers chills nausea vomiting. No double vision no blurry vision. No difficulty hearing or sinus complaints. No chest pain shortness of breath fever palpitation dizziness ankle swelling. No wheezing chills. No nausea c diarrhea abdominal pain reflux. No urgency frequency of urination. No hematuria. No skin rash eczema. No anxiety depression difficulty sleeping. No bleeding gums enlarged glands. No muscle ache back pain joint stiffness. No loss of strength numbness headache tremor or loss of memory. [facility] Past Medical History Medical History Anxiety and depression History of electroconvulsive therapy Hypertension Klonopin use disorder, moderate, in controlled environment, dependence Uncontrolled hypertension Family History Family History Mother Congestive heart failure Hypertension Sibling Prostate carcinoma Sibling Prostate carcinoma Father Brain tumor Sibling Breast cancer Multiple sclerosis Social History Social History Years smoked: 6 Smoking status: Former smoker Second hand tobacco smoke exposure: No Smoking end date: 11/15/1960 Alcohol intake: never Substance use: never Substance use type: does not use Lack of Transportation: No Lack of Food: Never True Current Housing: I Have Housing Concerned About Future Housing: No Difficulty Paying Gas/Electric Bills: No Difficulty Paying for Meds: No Currently Unemployed: No Education: Associate Degree Difficulty w/ Childcare or Family Care: No Spiritual care concerns: No Agree to blood products: Yes Meds Home Medications and Allergies Home Medications Medication Instructions Recorded Confirmed Type acetaminophen 325 mg tablet 650 mg PO Q4H PRN Pain 03/05/20 10/25/22 History aspirin 81 mg chewable tablet 81 mg PO DAILY 03/05/20 10/25/22 History clonazepam 2 mg tablet 2 mg PO HS 03/05/20 10/25/22 History quetiapine 25 mg tablet 6.25 mg PO HS 03/05/20 10/25/22 History calcium carbonate 500 mg calcium 400 mg PO Q6H PRN Indigestion #0 03/17/20 10/25/22 Rx (1,250 mg) chewable tablet tabs amlodipine 10 mg tablet 10 mg PO DAILY 10/25/22 10/25/22 History losartan 50 mg tablet 50 mg PO DAILY 10/25/22 10/25/22 History Allergies Allergy/AdvReac Type Severity Reaction Status Date / Time hydrochlorothiazide Allergy Unknown Verified 10/25/22 04:34 latex Allergy Unknown Verified 10/25/22 04:34 losartan Allergy Unknown Verified 10/25/22 04:34 ramipril Allergy Unknown Verified 10/25/22 04:34 cephalexin [From Keflex] AdvReac Nausea and Verified 10/25/22 04:34 Vomiting lisinopril AdvReac Cough Verified 10/25/22 04:34 tape Allergy Intermediate Other Uncoded 03/05/20 14:14 Vital Signs Vital Signs - 24 hr 10/24/22 18:36 10/24/22
[2022-10-25 15:17] LABS: Basophils Percent Auto 0.4 % (0.2-1.2); Eosinophils Absolute Auto 0.2 K/mm3 (0-0.3); Eosinophils Percent Auto 1.7 % (0-4.4); Hematocrit 36.7 % (37.0-47.0); Hemoglobin 12.3 g/dL (12.0-15.0); Immature Granulocyte Absolute 0.03 K/mm3 (0.00-0.031); Immature Granulocyte Percent A 0.3 % (0-0.5); Lymphocytes Absolute Auto 1.37 K/mm3 (0.9-3.2); Lymphocytes Percent Auto 14.2 % (18.3-44.2); Mean Corpuscular HGB Conc 33.5 g/dl (32-36); Mean Corpuscular Hemoglobin 28.3 pg (26-34); Mean Corpuscular Volume 84.6 fl (80-100); Mean Platelet Volume 7.8 fl (7.4-10.4); Monocytes Absolute Auto 0.9 K/mm3 (0.1-0.6); Monocytes Percent Auto 9.6 % (2.6-8.5); Neutrophils Absolute Auto 7.2 K/mm3 (1.3-6.7); Neutrophils Percent Auto 73.8 % (45.5-73.1); Platelet Count Result 389 k/mm3 (150-375); Red Blood Count 4.34 M/mm3 (4.2-5.4); Red Cell Distribution Width 14.1 % (11.5-14.5); White Blood Count 9.7 K/mm3 (4.5-10.0)
[2022-10-25] MEDS: DEXTROSE 5%/0.45% SOD CHL 1,000 ML 100 ML IV CONT (15:35)
[2022-10-25] MEDS: ASPIRIN 81 MG CHEWABLE TABLET PO (15:36)
[2022-10-25] MEDS: LOSARTAN POTASSIUM 50 MG TABLET PO (15:36)
[2022-10-25] MEDS: LINACLOTIDE 145 MCG CAPSULE PO (15:37)
--- NOTE | 2022-10-25 16:59 | PCRCNOTE ---
OFFERED FOR PT. TO WEAR ONE OF OUR CPAP UNITS, PT. DECLINED BUT STATES SHE WILL LET US KNOW IF SHE CHANGES HER MIND. PT. STATES SHE HAS NOT BEEN WEARING HERS AT HOME FOR AWHILE.
[2022-10-25] MEDS: clonazePAM (*CRX) 0.5 MG TABLET 2 MG PO (20:13)
[2022-10-26] VITALS (8 sets, daily range): BP systolic 144–155; BP diastolic 79–87; PULSE 71–88; RESP 18–20; TEMP 36.3–36.4; O2SAT 96–98; BMI 29.2
[2022-10-26] MEDS: DEXTROSE 5%/0.45% SOD CHL 1,000 ML 100 ML IV CONT ×2 (02:43→21:02)
[2022-10-26] MEDS: LINACLOTIDE 145 MCG CAPSULE PO (06:33)
[2022-10-26 07:06] LABS: Basophils Percent Auto 0.4 % (0.2-1.2); Eosinophils Absolute Auto 0.3 K/mm3 (0-0.3); Eosinophils Percent Auto 4.1 % (0-4.4); Hematocrit 36.1 % (37.0-47.0); Hemoglobin 11.8 g/dL (12.0-15.0); Immature Granulocyte Absolute 0.03 K/mm3 (0.00-0.031); Immature Granulocyte Percent A 0.4 % (0-0.5); Lymphocytes Absolute Auto 1.79 K/mm3 (0.9-3.2); Lymphocytes Percent Auto 23.2 % (18.3-44.2); Mean Corpuscular HGB Conc 32.7 g/dl (32-36); Mean Corpuscular Hemoglobin 27.6 pg (26-34); Mean Corpuscular Volume 84.3 fl (80-100); Mean Platelet Volume 7.9 fl (7.4-10.4); Monocytes Absolute Auto 0.8 K/mm3 (0.1-0.6); Monocytes Percent Auto 10.4 % (2.6-8.5); Neutrophils Absolute Auto 4.8 K/mm3 (1.3-6.7); Neutrophils Percent Auto 61.5 % (45.5-73.1); Platelet Count Result 381 k/mm3 (150-375); Red Blood Count 4.28 M/mm3 (4.2-5.4); Red Cell Distribution Width 13.7 % (11.5-14.5); White Blood Count 7.7 K/mm3 (4.5-10.0)
[2022-10-26] MEDS: amLODIPine BESYLATE 5 MG TABLET 10 MG PO (08:34)
[2022-10-26] MEDS: LOSARTAN POTASSIUM 50 MG TABLET PO (08:34)
[2022-10-26] MEDS: ASPIRIN 81 MG CHEWABLE TABLET PO (08:34)
[2022-10-26] MEDS: OSELTAMIVIR PHOSPHATE ORAL SUSP 30 MG/5 ML SYRINGE PO ×2 (08:36→21:04)
--- NOTE | 2022-10-26 14:20 | PM.IMPN ---
Progress Note: A&P Assessment and Plan (1) Influenza A: Code(s): J10.1 - Influenza due to other identified influenza virus with other respiratory manifestations Status: Acute Assessment and Plan: clinically much improved. Continue IV hydration. Continue Tamiflu treatment course (2) Urinary tract infection: Code(s): N39.0 - Urinary tract infection, site not specified Status: Acute Assessment and Plan: patient currently on Zosyn. Blood culture urine cultures are still pending. No hematuria noted no urgency or frequency is noted will continue antibiotics final cultures (3) Hypertension: Code(s): I10 - Essential (primary) hypertension Status: Acute Assessment and Plan: blood pressure uncontrolled readings of 130/70 plan. Continue current medication patient advised low-salt diet weight loss and exercise (4) Chronic constipation: Code(s): K59.09 - Other constipation Status: Acute Assessment and Plan: constipation has been patient's chronic condition patient has done manual disimpaction in the past as well as tried multiple stool softeners and with limited results patient was started on Linzess was still wait and see currently still struggling with constipation will do Fleet enema Plan DVT prophylaxis. GI prophylaxis. All records reviewed Discussed plan of care with the nursing staff and with the patient in detail. Answered all questions and concerns from the patient. All labs have been reviewed. Code status updated dictation may have been done utilizing a voice recognition system. Attempts have been made to correct errors. However, there may be uncorrected grammatical, spelling, and recognition errors present. Time Spent With Patient Time with patient: 25 - 35 minutes Subjective Date/time seen: 10/26/22 14:20 Interval history: still has some dry cough complains of constipation as well which is chronic Review of Systems Review of Systems: All systems reviewed & are unremarkable except as noted in HPI and below Exam Narrative: GENERAL: Well appearing, well-nourished, non-toxic, in no acute distress. HEAD: Normocephalic, atraumatic. NECK: Supple. No adenopathy, no masses. RESPIRATORY: Airway patent, respirations nonlabored. Clear to auscultation bilaterally, no rales, rhonchi, wheezing. CARDIOVASCULAR: Regular rate and rhythm without murmurs, rubs, or gallops. Peripheral pulses 2+ and equal bilaterally. ABDOMINAL: Soft, nontender, nondistended, no hepatosplenomegaly. Normoactive BS. MUSCULOSKELETAL: no Epigastric and no hypochondrial tenderness SKIN: Warm, dry, normal color. No rashes. NEURO: A&O X3. Moves all extremities PSYCHIATRIC: Appropriate mood and affect. Normal interaction. Objective Data Vital Signs Vital Signs: Vital Signs - 24 hr 10/25/22 14:55 10/25/22 15:00 10/25/22 22:00 Temperature 35.7 C L 36.6 C Pulse Rate 83 82 Respiratory Rate 16 20 Blood Pressure 132/69 150/81 H Pulse Oximetry 96 95 Oxygen Delivery Room Air 10/25/22 20:00 10/26/22 00:00 10/26/22 04:00 Temperature Pulse Rate 80 75 71 Respiratory Rate Blood Pressure Pulse Oximetry Oxygen Delivery 10/26/22 08:00 10/26/22 08:00 10/26/22 12:00 Temperature Pulse Rate 72 75 Respiratory Rate Blood Pressure Pulse Oximetry Oxygen Delivery Room Air Intake/Output Intake/Output: Intake & Output 10/23/22 10/24/22 10/25/22 10/26/22 23:59 23:59 23:59 23:59 Intake Total 830 1500 Output Total 525 1650 Balance 305 -150 Meds/Results Medications: Active Medications Generic Name Dose Route Start Last Admin Trade Name Freq PRN Reason Stop Dose Admin Acetaminophen 650 mg 10/25/22 14:16 Acetaminophen 325 Mg Tablet PO Q4H PRN Mild Pain (1-3) or Fever Amlodipine Besylate 10 mg 10/25/22 09:00 10/26/22 08:34 Amlodipine Besylate 5 Mg Tablet PO 10 mg ORIN
[2022-10-26] MEDS: ENOXAPARIN 40 MG/0.4 ML SYRINGE SUB-Q (15:47)
[2022-10-26] MEDS: clonazePAM (*CRX) 0.5 MG TABLET 2 MG PO (21:02)
[2022-10-27] VITALS (8 sets, daily range): BP systolic 140–154; BP diastolic 69–83; PULSE 74–84; RESP 17–20; TEMP 36.3–36.8; O2SAT 96–98
--- NOTE | 2022-10-27 04:05 | PCRCNOTE ---
PT REFUSED CPAP SHE STATES SHE HAS ONE AT HOME BUT DONT USE... OURS IS IN THE ROOM IF NEEDED
[2022-10-27] MEDS: LINACLOTIDE 145 MCG CAPSULE PO (06:50)
[2022-10-27] MEDS: DEXTROSE 5%/0.45% SOD CHL 1,000 ML 100 ML IV CONT ×2 (06:56→21:02)
[2022-10-27 08:56] LABS: Hematocrit 34.6 % (37.0-47.0); Hemoglobin 11.5 g/dL (12.0-15.0); Mean Corpuscular HGB Conc 33.2 g/dl (32-36); Mean Corpuscular Volume 84.4 fl (80-100); Mean Platelet Volume 7.9 fl (7.4-10.4); Platelet Count Result 372 k/mm3 (150-375); Red Cell Distribution Width 13.6 % (11.5-14.5); White Blood Count 6.8 K/mm3 (4.5-10.0)
--- NOTE | 2022-10-27 09:08 | PC.NURSE ---
left message with pharmacy about missing lovenox and tamiflu, will give when received
[2022-10-27] MEDS: ASPIRIN 81 MG CHEWABLE TABLET PO (09:12)
[2022-10-27] MEDS: LOSARTAN POTASSIUM 50 MG TABLET PO (09:12)
[2022-10-27] MEDS: amLODIPine BESYLATE 5 MG TABLET 10 MG PO (09:13)
[2022-10-27 09:14] LABS: Alanine Aminotransferase 27 U/L (6-35); Albumin Level 3.5 g/dL (3.5-5.1); Alkaline Phosphatase 69 U/L (38-126); Anion Gap 6 mmol/L (8-16); Aspartate Amino Transferase 28 U/L (14-36); Bilirubin,Total 0.8 mg/dL (0.2-1.3); Blood Urea Nitrogen 9 mg/dL (7-17); Calcium 8.2 mg/dL (8.4-10.2); Carbon Dioxide 26 mmol/L (22-30); Chloride 97 mmol/L (98-107); Estimated CRCL calculation 52 ml/min; Estimated Glomerular Filt Rate > 60; Glucose 116 mg/dL (65-110); Potassium 3.2 mmol/L (3.4-5.0); Sodium 129 mmol/L (137-145)
[2022-10-27] MEDS: ENOXAPARIN 40 MG/0.4 ML SYRINGE SUB-Q (11:31)
[2022-10-27] MEDS: OSELTAMIVIR PHOSPHATE ORAL SUSP 30 MG/5 ML SYRINGE PO ×2 (11:31→20:50)
[2022-10-27] MEDS: BISACODYL 5 MG TABLET EC PO (11:31)
--- NOTE | 2022-10-27 12:17 | PM.IMPN ---
Progress Note: A&P Assessment and Plan (1) Influenza A: Code(s): J10.1 - Influenza due to other identified influenza virus with other respiratory manifestations Status: Acute Assessment and Plan: clinically much improved. Continue IV hydration. Continue Tamiflu treatment course (2) Urinary tract infection: Code(s): N39.0 - Urinary tract infection, site not specified Status: Acute Assessment and Plan: patient currently on Zosyn. Blood culture urine cultures are still pending. No hematuria noted no urgency or frequency is noted will continue antibiotics final cultures (3) Hypertension: Code(s): I10 - Essential (primary) hypertension Status: Acute Assessment and Plan: blood pressure uncontrolled readings of 130/70 plan. Continue current medication patient advised low-salt diet weight loss and exercise (4) Chronic constipation: Code(s): K59.09 - Other constipation Status: Acute Assessment and Plan: constipation has been patient's chronic condition patient has done manual disimpaction in the past as well as tried multiple stool softeners and with limited results patient was started on Linzess was still wait and see currently still struggling with constipation will do Fleet enema Plan DVT prophylaxis. GI prophylaxis. All records reviewed Discussed plan of care with the nursing staff and with the patient in detail. Answered all questions and concerns from the patient. All labs have been reviewed. Code status updated dictation may have been done utilizing a voice recognition system. Attempts have been made to correct errors. However, there may be uncorrected grammatical, spelling, and recognition errors present. Time Spent With Patient Time with patient: 25 - 35 minutes Subjective Date/time seen: 10/27/22 12:17 Interval history: still has some dry cough complains of constipation as well which is chronic Review of Systems Review of Systems: All systems reviewed & are unremarkable except as noted in HPI and below Gastrointestinal: Gastrointestinal: Reports constipation Exam Narrative: GENERAL: Well appearing, well-nourished, non-toxic, in no acute distress. HEAD: Normocephalic, atraumatic. NECK: Supple. No adenopathy, no masses. RESPIRATORY: Airway patent, respirations nonlabored. Clear to auscultation bilaterally, no rales, rhonchi, wheezing. CARDIOVASCULAR: Regular rate and rhythm without murmurs, rubs, or gallops. Peripheral pulses 2+ and equal bilaterally. ABDOMINAL: Soft, nontender, nondistended, no hepatosplenomegaly. Normoactive BS. MUSCULOSKELETAL: no Epigastric and no hypochondrial tenderness SKIN: Warm, dry, normal color. No rashes. NEURO: A&O X3. Moves all extremities PSYCHIATRIC: Appropriate mood and affect. Normal interaction. Objective Data Vital Signs Vital Signs: Vital Signs - 24 hr 10/26/22 16:00 10/26/22 14:00 10/26/22 22:00 Temperature 36.4 C 36.3 C L Pulse Rate 88 82 80 Respiratory Rate 18 20 Blood Pressure 144/79 H 155/87 H Pulse Oximetry 96 98 Oxygen Delivery 10/26/22 20:00 10/26/22 20:00 10/27/22 00:00 Temperature Pulse Rate 79 80 76 Respiratory Rate 20 Blood Pressure Pulse Oximetry 98 Oxygen Delivery Room Air 10/27/22 06:00 10/27/22 04:00 10/27/22 09:11 Temperature 36.8 C Pulse Rate 74 84 Respiratory Rate 20 Blood Pressure 142/79 H 140/69 Pulse Oximetry 96 Oxygen Delivery 10/27/22 08:00 10/27/22 09:15 Temperature Pulse Rate 74 Respiratory Rate Blood Pressure Pulse Oximetry 96 Oxygen Delivery Room Air Intake/Output Intake/Output: Intake & Output 10/24/22 10/25/22 10/26/22 10/27/22 23:59 23:59 23:59 23:59 Intake Total 830 3600 1650 Output Total 525 3550 1150 Balance 305 50 500 Meds/Results Medications: Active Medications Generic Name Dose Route Start Last Admin Trade Name Freq PRN Reason Stop
--- NOTE | 2022-10-27 13:21 | P.CDI_ITS ---
CDI Query Clarified Diagnosis Clarified Diagnosis: Chronic indwelling Shafer catheter documented Urine culture from 10/24/22 grew 50,000-100,000 Enterobacter Cloacae complex Urine culture from 10/24/22 also grew 50,000-100,000 Pseudomonas Putida. Clarification request - UTI has been documented, chronic indwelling shafer catheter documented. Please clarify if UTI is: * due to/associated with chronic indwelling shafer catheter * not due to/associated with chronic indwelling shafer catheter * unable to determine <Mag Joyner RN - Last Filed: 10/27/22 13:28> UTI has been documented, chronic indwelling shafer catheter Chronic indwelling Shafer catheter documented Urine culture from 10/24/22 grew 50,000-100,000 Enterobacter Cloacae complex Urine culture from 10/24/22 also grew 50,000-100,000 Pseudomonas Putida. Clarification request - UTI has been documented, chronic indwelling shafer catheter documented. Please clarify if UTI is: * due to/associated with chronic indwelling shafer catheter * not due to/associated with chronic indwelling shafer catheter * unable to determine <Curly Webb MD - Last Filed: 11/23/22 15:41>
[2022-10-27] MEDS: polyethylene glycoL 3350 17 GM POWD.PACK PO (17:54)
[2022-10-27] MEDS: clonazePAM (*CRX) 0.5 MG TABLET 2 MG PO (20:50)
--- NOTE | 2022-10-28 05:06 | PC.NURSE ---
Pt. had a bag of home medications and said she took a fleets suppository. Pt. is very week and got her up to the bedside commode and was almost sliding out. Pt had a small BM. I took the home medications and stored them in the med room.
[2022-10-28 06:00] VITALS: BP 153/80; PULSE 76; RESP 17; TEMP 36.1; O2SAT 96
[2022-10-28] MEDS: LINACLOTIDE 145 MCG CAPSULE PO (06:32)
[2022-10-28] MEDS: DEXTROSE 5%/0.45% SOD CHL 1,000 ML 100 ML IV CONT (08:25)
[2022-10-28] MEDS: OSELTAMIVIR PHOSPHATE ORAL SUSP 30 MG/5 ML SYRINGE PO ×2 (09:40→21:47)
[2022-10-28] MEDS: ENOXAPARIN 40 MG/0.4 ML SYRINGE SUB-Q (09:41)
[2022-10-28] MEDS: amLODIPine BESYLATE 5 MG TABLET 10 MG PO (09:42)
[2022-10-28] MEDS: polyethylene glycoL 3350 17 GM POWD.PACK PO ×2 (09:42→21:48)
[2022-10-28] MEDS: LOSARTAN POTASSIUM 50 MG TABLET PO (09:42)
[2022-10-28] MEDS: ASPIRIN 81 MG CHEWABLE TABLET PO (09:42)
[2022-10-28] MEDS: POTASSIUM CHLORIDE INJ 40 MEQ in SODIUM CHLORIDE 0.9% IV 500 ML 130 MEQ IVPB (10:32)
--- NOTE | 2022-10-28 12:31 | PM.IMPN ---
Progress Note: A&P Assessment and Plan (1) Influenza A: Code(s): J10.1 - Influenza due to other identified influenza virus with other respiratory manifestations Status: Acute Assessment and Plan: Adequate oxygen saturation on room air. Clinically improved. -Continue oseltamivir BID (2) Urinary tract infection: Code(s): N39.0 - Urinary tract infection, site not specified Status: Acute Assessment and Plan: Cultures with pseudomonas and Enterobacter both sensitive to zosyn and levofloxacin. Has cephalexin allergy. -Levofloxacin 250 mg daily to finish 11/01/22 -Discontinue zosyn (3) Hypertension: Code(s): I10 - Essential (primary) hypertension Status: Acute Assessment and Plan: Continue amlodipine and losartan. (4) Chronic constipation: Code(s): K59.09 - Other constipation Status: Acute Assessment and Plan: Likely worsened by electrolyte disturbance - low potassium and phosphate. -Potassium chloride 40 mEq IV x1 -Potassium chloride 40 mEq po x1 -Sodium phosphate 15 mmol IV x1 -Docusate 100 mg BID -Miralax BID -Fleet Enema ordered -Recheck BMP at 2100 Plan Enoxaparin prophylaxis Discharge held due to electrolyte abnormalities, IV zosyn and persistent constipation Subjective Date/time seen: 10/28/22 12:31 Patient says she has constipation. Says she has not had a bowel movement since October 24 and is very uncomfortable. Says she had an enema but it was not successful. Previously had success with magnesium citrate. Review of Systems Gastrointestinal: Gastrointestinal: Reports abdominal pain, Reports constipation, Denies nausea and Denies vomiting Exam Narrative: GENERAL: NAD, cooperative HEENT: Normocephalic, atraumatic, anicteric NECK: supple CV: regular rate RESP: CTAB, Normal work of breathing. Abdomen: Soft, non-tender, non-distended, hypoactive bowel sounds EXTREMITIES: Warm and well perfused, no clubbing, cyanosis, or edema. SKIN: warm, dry and intact. NEURO:CN II-XII grossly intact. Objective Data Vital Signs Vital Signs: Vital Signs - 24 hr 10/27/22 22:00 10/28/22 06:00 10/28/22 14:00 Temperature 36.3 C L 36.1 C L 36.3 C L Pulse Rate 79 76 81 Respiratory Rate 17 17 20 Blood Pressure 153/83 H 153/80 H 144/76 H Pulse Oximetry 96 96 95 Oxygen Delivery 10/28/22 09:40 Temperature Pulse Rate Respiratory Rate Blood Pressure Pulse Oximetry Oxygen Delivery Room Air Intake/Output Intake/Output: Intake & Output 10/25/22 10/26/22 10/27/22 10/28/22 23:59 23:59 23:59 23:59 Intake Total 830 3600 3420 2120 Output Total 525 3550 3385 2650 Balance 305 50 35 -530 Meds/Results Medications: Active Medications Generic Name Dose Route Start Last Admin Trade Name Freq PRN Reason Stop Dose Admin Acetaminophen 650 mg 10/25/22 14:16 Acetaminophen 325 Mg Tablet PO Q4H PRN Mild Pain (1-3) or Fever Amlodipine Besylate 10 mg 10/25/22 09:00 10/28/22 09:42 Amlodipine Besylate 5 Mg Tablet PO 10 mg DAILY KALEN Administration Aspirin 81 mg 10/25/22 14:45 10/28/22 09:42 Aspirin 81 Mg Chewable Tablet PO 81 mg DAILY KALEN Administration Calcium Carbonate 400 mg 10/25/22 14:20 Calcium Carbonate (Tums) 500 Mg (200 Mg Elemental) PO Q6H PRN Indigestion Clonazepam 2 mg 10/25/22 21:00 10/27/22 20:50 Clonazepam (*Crx) 0.5 Mg Tablet PO 2 mg HS KALEN Administration Docusate Sodium 100 mg 10/28/22 19:30 Docusate Sodium 100 Mg Capsule PO Q12HR KALEN Enoxaparin Sodium 40 mg 10/26/22 14:45 10/28/22 09:41 Enoxaparin 40 Mg/0.4 Ml Syringe SUB-Q 40 mg DAILY KALEN Administration Piperacillin/Tazobactam/Dextrose 3.375 gm in 50 mls @ 100 mls/hr 10/25/22 06:00 10/28/22 18:39 Zosyn 3.375 Gm/D5w 50ml Pm IVPB Infused Q6H KALEN Infusion Dextrose/Sodium Chloride 1,000 mls @ 100 mls/hr 10/25/22
[2022-10-28 14:00] VITALS: BP 144/76; PULSE 81; RESP 20; TEMP 36.3; O2SAT 95
[2022-10-28 14:12] LABS: Basophils Percent Auto 0.2 % (0.2-1.2); Eosinophils Absolute Auto 0.2 K/mm3 (0-0.3); Eosinophils Percent Auto 2.7 % (0-4.4); Hematocrit 34.1 % (37.0-47.0); Hemoglobin 11.4 g/dL (12.0-15.0); Immature Granulocyte Absolute 0.04 K/mm3 (0.00-0.031); Immature Granulocyte Percent A 0.4 % (0-0.5); Lymphocytes Absolute Auto 1.22 K/mm3 (0.9-3.2); Lymphocytes Percent Auto 13.5 % (18.3-44.2); Mean Corpuscular HGB Conc 33.4 g/dl (32-36); Mean Corpuscular Hemoglobin 27.7 pg (26-34); Mean Platelet Volume 7.9 fl (7.4-10.4); Monocytes Absolute Auto 0.7 K/mm3 (0.1-0.6); Monocytes Percent Auto 7.9 % (2.6-8.5); Neutrophils Absolute Auto 6.8 K/mm3 (1.3-6.7); Neutrophils Percent Auto 75.3 % (45.5-73.1); Platelet Count Result 357 k/mm3 (150-375); Red Blood Count 4.11 M/mm3 (4.2-5.4); Red Cell Distribution Width 13.4 % (11.5-14.5)
[2022-10-28 14:31] LABS: Anion Gap 7 mmol/L (8-16); Blood Urea Nitrogen 7 mg/dL (7-17); Calcium 8.2 mg/dL (8.4-10.2); Carbon Dioxide 24 mmol/L (22-30); Chloride 96 mmol/L (98-107); Estimated CRCL calculation 68 ml/min; Estimated Glomerular Filt Rate > 60; Glucose 122 mg/dL (65-110); Phosphorus 2.4 mg/dL (2.5-4.5); Potassium 3.3 mmol/L (3.4-5.0); Sodium 127 mmol/L (137-145)
[2022-10-28 20:00] VITALS: PULSE 80; RESP 22; O2SAT 97
[2022-10-28 21:29] VITALS: BP 149/82; PULSE 80; RESP 22; TEMP 36.4; O2SAT 97
[2022-10-28 21:44] LABS: Anion Gap 7 mmol/L (8-16); Blood Urea Nitrogen 9 mg/dL (7-17); Calcium 8.5 mg/dL (8.4-10.2); Carbon Dioxide 23 mmol/L (22-30); Chloride 100 mmol/L (98-107); Estimated CRCL calculation 59 ml/min; Estimated Glomerular Filt Rate > 60; Glucose 108 mg/dL (65-110); Potassium 3.6 mmol/L (3.4-5.0); Sodium 130 mmol/L (137-145)
[2022-10-28] MEDS: DOCUSATE SODIUM 100 MG CAPSULE PO (21:47)
[2022-10-28] MEDS: clonazePAM (*CRX) 0.5 MG TABLET 2 MG PO (21:47)
[2022-10-28] MEDS: POTASSIUM CHLORIDE 20 MEQ TABLET 40 MEQ PO (21:47)
[2022-10-28] MEDS: levoFLOXacin 250 MG TABLET PO (21:48)
[2022-10-29 05:29] VITALS: BP 149/80; PULSE 76; RESP 18; TEMP 36.2; O2SAT 97
[2022-10-29] MEDS: LINACLOTIDE 145 MCG CAPSULE PO (06:04)
[2022-10-29] MEDS: DEXTROSE 5%/0.45% SOD CHL 1,000 ML 100 ML IV CONT ×2 (07:33→23:18)
[2022-10-29 07:40] LABS: Basophils Percent Auto 0.5 % (0.2-1.2); Eosinophils Absolute Auto 0.2 K/mm3 (0-0.3); Eosinophils Percent Auto 2.6 % (0-4.4); Hematocrit 35.1 % (37.0-47.0); Hemoglobin 11.4 g/dL (12.0-15.0); Immature Granulocyte Absolute 0.03 K/mm3 (0.00-0.031); Immature Granulocyte Percent A 0.4 % (0-0.5); Lymphocytes Absolute Auto 1.29 K/mm3 (0.9-3.2); Lymphocytes Percent Auto 17.6 % (18.3-44.2); Mean Corpuscular HGB Conc 32.5 g/dl (32-36); Mean Corpuscular Hemoglobin 27.3 pg (26-34); Mean Platelet Volume 7.9 fl (7.4-10.4); Monocytes Absolute Auto 0.7 K/mm3 (0.1-0.6); Monocytes Percent Auto 9.8 % (2.6-8.5); Neutrophils Absolute Auto 5.1 K/mm3 (1.3-6.7); Neutrophils Percent Auto 69.1 % (45.5-73.1); Platelet Count Result 367 k/mm3 (150-375); Red Blood Count 4.18 M/mm3 (4.2-5.4); Red Cell Distribution Width 13.6 % (11.5-14.5); White Blood Count 7.3 K/mm3 (4.5-10.0)
[2022-10-29 07:53] LABS: Anion Gap 6 mmol/L (8-16); Blood Urea Nitrogen 7 mg/dL (7-17); Calcium 8.5 mg/dL (8.4-10.2); Carbon Dioxide 23 mmol/L (22-30); Chloride 102 mmol/L (98-107); Estimated CRCL calculation 68 ml/min; Estimated Glomerular Filt Rate > 60; Glucose 127 mg/dL (65-110); Magnesium 2.1 mg/dL (1.6-2.3); Phosphorus 2.6 mg/dL (2.5-4.5); Potassium 3.7 mmol/L (3.4-5.0); Sodium 131 mmol/L (137-145)
[2022-10-29 08:00] VITALS: PULSE 76; RESP 18; O2SAT 97
--- NOTE | 2022-10-29 08:27 | PM.IMPN ---
Progress Note: A&P Assessment and Plan (1) Influenza A: Code(s): J10.1 - Influenza due to other identified influenza virus with other respiratory manifestations Status: Acute Assessment and Plan: Adequate oxygen saturation on room air. Clinically improved. -Continue oseltamivir BID (2) Urinary tract infection: Code(s): N39.0 - Urinary tract infection, site not specified Status: Acute Assessment and Plan: Cultures with pseudomonas and Enterobacter both sensitive to zosyn and levofloxacin. Has cephalexin allergy. -Levofloxacin 250 mg daily to finish 11/01/22 (3) Hypertension: Code(s): I10 - Essential (primary) hypertension Status: Acute Assessment and Plan: Continue amlodipine and losartan. (4) Chronic constipation: Code(s): K59.09 - Other constipation Status: Acute Assessment and Plan: Electrolytes now within range. Still reporting constipation. Enema ordered yesterday but not given. Nurse reports giving the enema this morning with no significant stool. Abdomen is soft and does not appear to be developing obstruction or ileus. -Continue miralax BID -Docusate stool softeners BID -Continue linzess (5) Debility: Code(s): R53.81 - Other malaise Status: Acute Assessment and Plan: After discussing plan for discharge today the patient stated she does not feel safe to go home as she does not believe she is strong enough. Patient requested placement in SNF. Care coordination is working on placement, so discharge will be held until insurance approval. Plan Enoxaparin prophylaxis Discharge held due to electrolyte abnormalities, IV zosyn and persistent constipation Subjective Date/time seen: 10/29/22 08:27 Nursing at beside during rounds. Patient is upset she has not had a bowel movement. Discussed with patient that magnesium citrate is no longer available. Enema was not given by nursing overnight. Denies shortness of breath or difficulty breathing. Per nursing, patient will not participate in physical therapy and will not assist when staff are trying to help her move around the room or simply adjust in bed. Discussed with patient that multiple bowel movements have been recorded in the EMR when the patient reports she has not had a bowel movement since Wednesday 10/24. Review of Systems Respiratory: Respiratory: Denies dyspnea Gastrointestinal: Gastrointestinal: Reports constipation Musculoskeletal: Comments: Reports generalize weakness. Exam Narrative: GENERAL: NAD, cooperative HEENT: Normocephalic, atraumatic, anicteric NECK: supple CV: regular rate RESP: CTAB, Normal work of breathing. Abdomen: Soft, non-tender, non-distended, normoactive bowel sounds EXTREMITIES: Warm and well perfused, no clubbing, cyanosis, or edema. SKIN: warm, dry and intact. NEURO:CN II-XII grossly intact. Objective Data Vital Signs Vital Signs: Vital Signs - 24 hr 10/28/22 14:00 10/28/22 09:40 10/28/22 21:29 Temperature 36.3 C L 36.4 C L Pulse Rate 81 80 Respiratory Rate 20 22 H Blood Pressure 144/76 H 149/82 H Pulse Oximetry 95 97 Oxygen Delivery Room Air 10/28/22 20:00 10/29/22 05:29 Temperature 36.2 C L Pulse Rate 80 76 Respiratory Rate 22 H 18 Blood Pressure 149/80 H Pulse Oximetry 97 97 Oxygen Delivery Room Air Intake/Output Intake/Output: Intake & Output 10/26/22 10/27/22 10/28/22 10/29/22 23:59 23:59 23:59 23:59 Intake Total 3600 3420 3120 200 Output Total 3550 3385 2650 1450 Balance 50 35 470 -1250 Meds/Results Medications: Active Medications Generic Name Dose Route Start Last Admin Trade Name Freq PRN Reason Stop Dose Admin Acetaminophen 650 mg 10/25/22 14:16 Acetaminophen 325 Mg Tablet PO Q4H PRN Mild Pain (1-3) or Fever Amlodipine Besylate 10 mg 10/25/22 09:00 10/28/22 09:42 Amlodipine Besylate 5 Mg Tabl
[2022-10-29 09:20] VITALS: BMI 10.0
[2022-10-29] MEDS: DOCUSATE SODIUM 100 MG CAPSULE PO ×2 (09:23→21:14)
[2022-10-29] MEDS: polyethylene glycoL 3350 17 GM POWD.PACK PO ×2 (09:23→21:14)
[2022-10-29] MEDS: levoFLOXacin 250 MG TABLET PO (09:24)
[2022-10-29] MEDS: LOSARTAN POTASSIUM 50 MG TABLET PO (09:24)
[2022-10-29] MEDS: ASPIRIN 81 MG CHEWABLE TABLET PO (09:24)
[2022-10-29] MEDS: ENOXAPARIN 40 MG/0.4 ML SYRINGE SUB-Q (09:24)
[2022-10-29] MEDS: amLODIPine BESYLATE 5 MG TABLET 10 MG PO (09:24)
[2022-10-29] MEDS: POTASSIUM CHLORIDE 20 MEQ TABLET 40 MEQ PO (09:27)
[2022-10-29] MEDS: OSELTAMIVIR PHOSPHATE ORAL SUSP 30 MG/5 ML SYRINGE PO ×2 (09:29→21:15)
--- NOTE | 2022-10-29 13:40 | PCOTNOTE ---
Attempted to see patient this pm however patient refused. Pt reported increased weakness today, When I sit up I flop all over the place. Encouraged patient to participate in therapy as a point to increase balance and strength, however patient stated, I've had it today.
[2022-10-29 14:00] VITALS: BP 151/90; PULSE 85; RESP 16; TEMP 36.3; O2SAT 95
[2022-10-29 20:00] VITALS: PULSE 86; RESP 18; O2SAT 95
[2022-10-29 20:08] VITALS: BP 162/86; PULSE 86; RESP 18; TEMP 36.2; O2SAT 95
[2022-10-29] MEDS: clonazePAM (*CRX) 0.5 MG TABLET 2 MG PO (21:14)
[2022-10-30 02:59] VITALS: BP 130/74; PULSE 83; RESP 18; TEMP 36.9; O2SAT 95
[2022-10-30] MEDS: LINACLOTIDE 145 MCG CAPSULE PO (05:24)
[2022-10-30] MEDS: DEXTROSE 5%/0.45% SOD CHL 1,000 ML 100 ML IV CONT (05:24)
[2022-10-30 07:06] LABS: Basophils Percent Auto 0.3 % (0.2-1.2); Eosinophils Absolute Auto 0.1 K/mm3 (0-0.3); Eosinophils Percent Auto 1.3 % (0-4.4); Hematocrit 32.4 % (37.0-47.0); Immature Granulocyte Absolute 0.04 K/mm3 (0.00-0.031); Immature Granulocyte Percent A 0.4 % (0-0.5); Lymphocytes Absolute Auto 1.48 K/mm3 (0.9-3.2); Lymphocytes Percent Auto 14.5 % (18.3-44.2); Mean Corpuscular Hemoglobin 28.4 pg (26-34); Mean Corpuscular Volume 83.7 fl (80-100); Monocytes Absolute Auto 0.7 K/mm3 (0.1-0.6); Monocytes Percent Auto 6.9 % (2.6-8.5); Neutrophils Absolute Auto 7.9 K/mm3 (1.3-6.7); Neutrophils Percent Auto 76.6 % (45.5-73.1); Platelet Count Result 319 k/mm3 (150-375); Red Blood Count 3.87 M/mm3 (4.2-5.4); Red Cell Distribution Width 13.8 % (11.5-14.5); White Blood Count 10.2 K/mm3 (4.5-10.0)
[2022-10-30 07:15] LABS: Anion Gap 5 mmol/L (8-16); Blood Urea Nitrogen 6 mg/dL (7-17); Calcium 8.2 mg/dL (8.4-10.2); Carbon Dioxide 23 mmol/L (22-30); Chloride 94 mmol/L (98-107); Estimated CRCL calculation 80 ml/min; Estimated Glomerular Filt Rate > 60; Glucose 118 mg/dL (65-110); Magnesium 1.9 mg/dL (1.6-2.3); Phosphorus 2.9 mg/dL (2.5-4.5); Potassium 3.5 mmol/L (3.4-5.0); Sodium 122 mmol/L (137-145)
[2022-10-30] MEDS: ENOXAPARIN 40 MG/0.4 ML SYRINGE SUB-Q (08:16)
[2022-10-30] MEDS: LOSARTAN POTASSIUM 50 MG TABLET PO (08:17)
[2022-10-30] MEDS: amLODIPine BESYLATE 5 MG TABLET 10 MG PO (08:17)
[2022-10-30] MEDS: levoFLOXacin 250 MG TABLET PO (08:17)
[2022-10-30] MEDS: DOCUSATE SODIUM 100 MG CAPSULE PO ×2 (08:17→21:00)
[2022-10-30] MEDS: polyethylene glycoL 3350 17 GM POWD.PACK PO ×2 (08:17→21:00)
[2022-10-30] MEDS: ASPIRIN 81 MG CHEWABLE TABLET PO (08:17)
--- NOTE | 2022-10-30 08:27 | PM.IMPN ---
Progress Note: A&P Assessment and Plan (1) Ataxia: Code(s): R27.0 - Ataxia, unspecified Status: Acute Assessment and Plan: Patient has a history of a stroke with residual left sided hemiparesis, but per nursing and physical therapy when the patient arrived she could sit in the bed and was minimal assist. Now she cannot sit on the side of the bed or stand without losing balance. Neuro exam was -MRI brain and brainstem -Neurology consulted (2) Hyponatremia: Code(s): E87.1 - Hypo-osmolality and hyponatremia Status: Acute Assessment and Plan: Patient has had chronic hyponatremia, which has been at baseline since admission. This morning sodium reported 122. She is nearly net even during the hospitalization. Levofloxacin was started yesterday and coincides with the drop. This may be the cause. Will await recommendations from Nephrology. -Nephrology consult (3) Influenza A: Code(s): J10.1 - Influenza due to other identified influenza virus with other respiratory manifestations Status: Acute Assessment and Plan: Adequate oxygen saturation on room air. Clinically improved. -Continue oseltamivir BID (4) Urinary tract infection: Code(s): N39.0 - Urinary tract infection, site not specified Status: Acute Assessment and Plan: Cultures with pseudomonas and Enterobacter both sensitive to zosyn and levofloxacin. Has cephalexin allergy. -Levofloxacin 250 mg daily to finish 11/01/22 (5) Hypertension: Code(s): I10 - Essential (primary) hypertension Status: Acute Assessment and Plan: Continue amlodipine and losartan. (6) Chronic constipation: Code(s): K59.09 - Other constipation Status: Acute Assessment and Plan: Electrolytes now within range. Still reporting constipation. Enema ordered yesterday but not given. Nurse reports giving the enema this morning with no significant stool. Abdomen is soft and does not appear to be developing obstruction or ileus. -Continue miralax BID -Docusate stool softeners BID -Continue linzess (7) Debility: Code(s): R53.81 - Other malaise Status: Acute Assessment and Plan: After discussing plan for discharge today the patient stated she does not feel safe to go home as she does not believe she is strong enough. Patient requested placement in SNF. Care coordination is working on placement, so discharge will be held until insurance approval. (8) Leg weakness: Code(s): R29.898 - Other symptoms and signs involving the musculoskeletal system Status: Acute Assessment and Plan: Has the history of left hemiparesis after stroke but now reporting weakness in both legs and is unable to stand. -MRI thoracic and lumbar spine Plan Enoxaparin prophylaxis Subjective Date/time seen: 10/30/22 08:27 Patient is having significant difficulty participating with therapy. Patient reports she cannot stand or sit up. Nursing is reporting the patient is unbalance and unable to stand when she was previously a minimal assist. Patient denies cough, shortness of breath or difficulty breathing. She still has not had a bowel movement. Review of Systems Respiratory: Respiratory: Denies cough and Denies dyspnea Gastrointestinal: Gastrointestinal: Reports constipation Exam Narrative: GENERAL: NAD, cooperative HEENT: Normocephalic, atraumatic, anicteric NECK: supple CV: regular rate RESP: CTAB, Normal work of breathing. Abdomen: Soft, non-tender, non-distended, normoactive bowel sounds EXTREMITIES: Warm and well perfused, no clubbing, cyanosis, or edema. SKIN: warm, dry and intact. NEURO:CN II-XII intact. 5/5 bilateral upper extremity strength. 4/5 lower extremity strenght. Sensation symmetric throughout. Finger to nose with no ataxia. Patient says she cannot stand and walk. Objective Data Juanita
[2022-10-30 14:52] VITALS: BP 131/72; PULSE 78; RESP 18; TEMP 36.2; O2SAT 94
--- NOTE | 2022-10-30 15:12 | WPDNEURCNPN ---
Assessment and Plan Assessment and plan (1) Left-sided weakness: Code(s): R53.1 - Weakness Status: Acute (2) Influenza A: Code(s): J10.1 - Influenza due to other identified influenza virus with other respiratory manifestations Status: Acute (3) Hemiparesis of left nondominant side: Code(s): G81.94 - Hemiplegia, unspecified affecting left nondominant side Status: Acute (4) Debility: Code(s): R53.81 - Other malaise Status: Acute Plan as outlined she is not a surgical case will be discussed with the family according will benefit from the supportive care as being given along with the physical therapy Consult date: 10/30/22 HPI: Susana Gaming is a 82 year old female admitted to the hospital for the complaints of generalized weakness in addition to the ongoing history of 1. Right hemispheric stroke with left hemiparesis 2. Hypertension 3. Anxiety patient has received rehab therapy with significant improvement when she had the original stroke and recently she had been in the rehab center at [facility] for the complaints of worsening weakness she is at present unable to transfer herself from 1 chair to wheelchair which is her baseline she lives at home and family is unable to care for her she was also complaining of abdominal pain at the time of visit to the emergency room. Medications included clonazepam 2 mg at night Seroquel 25 mg 1 4 tablets at night amlodipine 10 mg daily losartan 50 mg daily in addition to aspirin 81 mg daily. She does have ongoing history of anxiety with depression receiving electroconvulsive therapy in the past and also having the history of Klonopin use disorder she is never a drinker she is a former smoker initial exam in the emergency room documented left-sided weakness routine labs were normal including CBC BMP but UA was with more than 75 wbc's SARS-CoV-2 id and influenza a and B were all negative subsequently thoracic MRI documented S shaped scoliosis with posterior fixation hardware from T11 through lumbar spine, brain MRI increased T2 signal throughout the medulla with enlargement of the medulla raising the possibility of glioma or subacute infarct for which post contrast MRI was suggested but she was also found to have old infarct involving the right basal ganglia anterior limb of the right internal capsule left thalamus and left side of the shara in addition to scattered foci of microhemorrhages in the brainstem and cerebellum lumbar spine MRI was extensive fixation hardware does nondiagnostic since admission patient has been treated for the influenza she is receiving medication accordingly and also treatment for the UTI with levofloxacin 250 mg daily PMFSH Past Medical History Medical History Anxiety and depression History of electroconvulsive therapy Hypertension Klonopin use disorder, moderate, in controlled environment, dependence Uncontrolled hypertension Family History Family History Mother Congestive heart failure Hypertension Sibling Prostate carcinoma Sibling Prostate carcinoma Father Brain tumor Sibling Breast cancer Multiple sclerosis Social History Social History Years smoked: 6 Smoking status: Former smoker Second hand tobacco smoke exposure: No Smoking end date: 11/15/1960 Alcohol intake: never Substance use: never Substance use type: does not use Lack of Transportation: No Lack of Food: Never True Current Housing: I Have Housing Concerned About Future Housing: No Difficulty Paying Gas/Electric Bills: No Difficulty Paying for Meds: No Currently Unemployed: No Education: Associate Degree Difficulty w/ Childcare or Family Care: No Spiritual care concerns: No Agree to blood products: Yes Meds Home Medications and Allerg
[2022-10-30 15:19] LABS: Sodium 123 mmol/L (137-145)
--- NOTE | 2022-10-30 15:29 | PM.CNNEP ---
Assessment and Plan Assessment and plan (1) Hyponatremia: Code(s): E87.1 - Hypo-osmolality and hyponatremia Status: Acute Assessment and Plan: acute on chrnnic baseline sodium runs ~ 131 -133 as far back as 2019 reason for acute decline: possibly prerenal factors influenza increased free water intake(?) other? follow-up on TSH and corisol check SPEP, UPEP, serum/urine osmolality CXR results noted MRI of brain ordered follow trend of repeat sodium levels (2) Influenza A: Code(s): J10.1 - Influenza due to other identified influenza virus with other respiratory manifestations Status: Acute Assessment and Plan: s/p Tamiflu continue supportive therapy (3) Hypertension: Code(s): I10 - Essential (primary) hypertension Status: Chronic Assessment and Plan: reasonable control at this time follow trend of hemodyanmics (4) Chronic constipation: Code(s): K59.09 - Other constipation Status: Acute Assessment and Plan: on medications follow trend of BMs Will continue to follow. History of Present Illness Reason for Consult Consult date: 10/30/22 Reason for consult: hyponatremia Chief Complaint Chief complaint: L Sided Weakness, UTI, Flu History of Present Illness Narrative: The patient is 82-year-old female with a past medical history as outlined below who presented to [facility] Emergency room with complaints of generalized weakness and not feeling well. The patient has been currently residing in a rehab facility and she reports that she has progressively got weaker in the last 2-3 days. She reports a nonproductive cough as well as increasing / worsening constipation despite multiple medical interventions to date. Workup and evaluation in the emergency room demonstrated the patient be hemodynamically stable with routine blood test appear to be relatively stable in comparison to her previous evaluation. She had some mild hyponatremia but this was relatively stable. She was found to be influenza positive. Given her constellation of symptoms and her complex medical history, she was admitted the hospital for further evaluation therapy. Renal consultation was requested after labs done earlier this morning demonstrated an acute drop in her sodium level. Her sodium level this morning was 123 in comparison to her normal baseline sodium level the fluctuate anywhere from 131-133 millimoles per L. it does not appear that she has been symptomatic with regard to this change as she seems to be more focused on the fact that she has significant / severe constipation that seems be unrelieved with current medical interventions to date. In fact, despite my questioning with regard to her low sodium level, she always seems to come back to the issue of her constipation how it is such a problematic issue for her in general. Currently, at the time my evaluation, she does not appear to be in acute distress. Review of Systems Review of Systems: As per HPI. [facility] Past Medical History Medical History Anxiety and depression History of electroconvulsive therapy Hypertension Klonopin use disorder, moderate, in controlled environment, dependence Uncontrolled hypertension Family History Family History Mother Congestive heart failure Hypertension Sibling Prostate carcinoma Sibling Prostate carcinoma Father Brain tumor Sibling Breast cancer Multiple sclerosis Social History Social History Years smoked: 6 Smoking status: Former smoker Second hand tobacco smoke exposure: No Smoking end date: 11/15/1960 Alcohol intake: never Substance use: never Substance use type: does not use Lack of Transportation: No Lack of Food: Never True Current
[2022-10-30 20:25] VITALS: PULSE 75; RESP 14; O2SAT 94
[2022-10-30 20:31] LABS: Creatinine Urine 20.9 mg/dL; Total Protein Urine Random 53 mg/dL; Ur Ttl Prot Creatinine Ratio 2.54 mg/mg (0-0.20)
[2022-10-30 20:32] LABS: Sodium Urine Random 22 meq/L
[2022-10-30] MEDS: clonazePAM (*CRX) 0.5 MG TABLET 2 MG PO (21:00)
[2022-10-30 21:44] VITALS: BP 135/59; PULSE 75; RESP 14; TEMP 36.4; O2SAT 94
[2022-10-30 22:06] LABS: Sodium 127 mmol/L (137-145)
[2022-10-31 05:29] VITALS: BP 141/63; PULSE 79; RESP 14; TEMP 36.8; O2SAT 94
[2022-10-31] MEDS: LINACLOTIDE 145 MCG CAPSULE PO (06:30)
[2022-10-31 06:46] LABS: Basophils Percent Auto 0.4 % (0.2-1.2); Eosinophils Absolute Auto 0.2 K/mm3 (0-0.3); Eosinophils Percent Auto 1.7 % (0-4.4); Hematocrit 31.5 % (37.0-47.0); Hemoglobin 10.7 g/dL (12.0-15.0); Immature Granulocyte Absolute 0.07 K/mm3 (0.00-0.031); Immature Granulocyte Percent A 0.7 % (0-0.5); Lymphocytes Absolute Auto 1.04 K/mm3 (0.9-3.2); Lymphocytes Percent Auto 10.1 % (18.3-44.2); Mean Corpuscular Hemoglobin 27.4 pg (26-34); Mean Corpuscular Volume 80.6 fl (80-100); Mean Platelet Volume 7.8 fl (7.4-10.4); Monocytes Absolute Auto 0.7 K/mm3 (0.1-0.6); Monocytes Percent Auto 6.6 % (2.6-8.5); Neutrophils Absolute Auto 8.3 K/mm3 (1.3-6.7); Neutrophils Percent Auto 80.5 % (45.5-73.1); Platelet Count Result 326 k/mm3 (150-375); Red Blood Count 3.91 M/mm3 (4.2-5.4); Red Cell Distribution Width 13.8 % (11.5-14.5); White Blood Count 10.3 K/mm3 (4.5-10.0)
[2022-10-31 07:00] LABS: Anion Gap 4 mmol/L (8-16); Blood Urea Nitrogen 11 mg/dL (7-17); Calcium 8.8 mg/dL (8.4-10.2); Carbon Dioxide 25 mmol/L (22-30); Chloride 94 mmol/L (98-107); Estimated CRCL calculation 68 ml/min; Estimated Glomerular Filt Rate > 60; Glucose 97 mg/dL (65-110); Magnesium 2.1 mg/dL (1.6-2.3); Phosphorus 3.4 mg/dL (2.5-4.5); Potassium 3.8 mmol/L (3.4-5.0); Sodium 123 mmol/L (137-145)
[2022-10-31] MEDS: polyethylene glycoL 3350 17 GM POWD.PACK PO ×2 (08:41→21:13)
[2022-10-31] MEDS: amLODIPine BESYLATE 5 MG TABLET 10 MG PO (08:41)
[2022-10-31] MEDS: ENOXAPARIN 40 MG/0.4 ML SYRINGE SUB-Q (08:41)
[2022-10-31] MEDS: levoFLOXacin 250 MG TABLET PO (08:42)
[2022-10-31] MEDS: ASPIRIN 81 MG CHEWABLE TABLET PO (08:42)
[2022-10-31] MEDS: DOCUSATE SODIUM 100 MG CAPSULE PO ×2 (08:42→21:12)
[2022-10-31] MEDS: LOSARTAN POTASSIUM 50 MG TABLET PO (08:42)
--- NOTE | 2022-10-31 10:51 | P.PNNP_ITS ---
Progress Note: A&P Assessment and Plan (1) Hyponatremia: Code(s): E87.1 - Hypo-osmolality and hyponatremia Status: Acute Assessment and Plan: * acute on chrnnic * baseline sodium runs ~ 131 -133 as far back as 2020 * reason for acute decline: * possibly prerenal factors * influenza * increased free water intake(?) * other? * evaluation to date: * follow-up on TSH and corisol * SPEP, UPEP, serum/urine osmolality pending * CXR results noted * MRI of brain noted as well * urine electrolytes suggest pre-renal azotemia * will give a trial of normal saline IVFs * follow trend of repeat sodium levels (2) Influenza A: Code(s): J10.1 - Influenza due to other identified influenza virus with other respiratory manifestations Status: Acute Assessment and Plan: * s/p Tamiflu * continue supportive therapy (3) Hypertension: Code(s): I10 - Essential (primary) hypertension Status: Chronic Assessment and Plan: * reasonable control at this time * follow trend of hemodyanmics (4) Chronic constipation: Code(s): K59.09 - Other constipation Status: Acute Assessment and Plan: * on medications * follow trend of BMs Will continue to follow. Subjective Date/time seen: 10/31/22 10:51 No new issues to report at this time; still concerned that she has not had a bowel movement and seems somewhat depressed by her current issues and problems in general. Exam Narrative: General: elderly female in NAD Heart: normal S1 and S2; no rub Lungs: clear to auscultation Abdomen: soft, nontender, nondistended, positive bowel sounds Extremities: no cyanosis or clubbing; no edema Skin: warm and dry Objective Data Vital Signs Vital Signs: Vital Signs Temp Pulse Resp BP Pulse Ox O2 Del Method 10/31/22 08:50 Room Air 10/31/22 05:29 98.2 F 79 14 141/63 H 94 10/30/22 20:25 75 14 94 Room Air 10/30/22 21:44 97.5 F L 75 14 135/59 L 94 Intake/Output Intake/Output: Intake & Output 10/28/22 10/29/22 10/30/22 10/31/22 23:59 23:59 23:59 23:59 Intake Total 3120 1642 2100 980 Output Total 2650 2850 2850 1000 [facility] 470 -1208 -750 -20 Meds/Results Medications: Active Medications Generic Name Dose Route Start Last Admin Trade Name Freq PRN Reason Stop Dose Admin Acetaminophen 650 mg 10/25/22 14:16 Acetaminophen 325 Mg Tablet PO Q4H PRN Mild Pain (1-3) or Fever Amlodipine Besylate 10 mg 10/25/22 09:00 10/31/22 08:41 Amlodipine Besylate 5 Mg Tablet PO 10 mg DAILY KALEN Administration Aspirin 81 mg 10/25/22 14:45 10/31/22 08:42 Aspirin 81 Mg Chewable Tablet PO 81 mg DAILY KALEN Administration Calcium Carbonate 400 mg 10/25/22 14:20 Calcium Carbonate (Tums) 500 Mg (200 Mg Elemental) PO Q6H PRN Indigestion Clonazepam 2 mg 10/25/22 21:00 10/30/22 21:00 Clonazepam (*Crx) 0.5 Mg Tablet PO 2 mg HS KALEN Administration Docusate Sodium 100 mg 10/28/22 19:30 10/31/22 08:42 Docusate Sodium 100 Mg Capsule
--- NOTE | 2022-10-31 10:51 | PM.PNNEP ---
Progress Note: A&P Assessment and Plan (1) Hyponatremia: Code(s): E87.1 - Hypo-osmolality and hyponatremia Status: Acute Assessment and Plan: acute on chrnnic baseline sodium runs ~ 131 -133 as far back as 2019 reason for acute decline: possibly prerenal factors influenza increased free water intake(?) other? evaluation to date: follow-up on TSH and corisol SPEP, UPEP, serum/urine osmolality pending CXR results noted MRI of brain noted as well urine electrolytes suggest pre-renal azotemia will give a trial of normal saline IVFs follow trend of repeat sodium levels (2) Influenza A: Code(s): J10.1 - Influenza due to other identified influenza virus with other respiratory manifestations Status: Acute Assessment and Plan: s/p Tamiflu continue supportive therapy (3) Hypertension: Code(s): I10 - Essential (primary) hypertension Status: Chronic Assessment and Plan: reasonable control at this time follow trend of hemodyanmics (4) Chronic constipation: Code(s): K59.09 - Other constipation Status: Acute Assessment and Plan: on medications follow trend of BMs Will continue to follow. Subjective Date/time seen: 10/31/22 10:51 No new issues to report at this time; still concerned that she has not had a bowel movement and seems somewhat depressed by her current issues and problems in general. Exam Narrative: General: elderly female in NAD Heart: normal S1 and S2; no rub Lungs: clear to auscultation Abdomen: soft, nontender, nondistended, positive bowel sounds Extremities: no cyanosis or clubbing; no edema Skin: warm and dry Objective Data Vital Signs Vital Signs: Vital Signs Temp Pulse Resp BP Pulse Ox O2 Del Method 10/31/22 08:50 Room Air 10/31/22 05:29 98.2 F 79 14 141/63 H 94 10/30/22 20:25 75 14 94 Room Air 10/30/22 21:44 97.5 F L 75 14 135/59 L 94 Intake/Output Intake/Output: Intake & Output 10/28/22 10/29/22 10/30/22 10/31/22 23:59 23:59 23:59 23:59 Intake Total 3120 1642 2100 980 Output Total 2650 2850 2850 1000 Balance 896 -1208 -750 -20 Meds/Results Medications: Active Medications Generic Name Dose Route Start Last Admin Trade Name Kim PRN Reason Stop Dose Admin Acetaminophen 650 mg 10/25/22 14:16 Acetaminophen 325 Mg Tablet PO Q4H PRN Mild Pain (1-3) or Fever Amlodipine Besylate 10 mg 10/25/22 09:00 10/31/22 08:41 Amlodipine Besylate 5 Mg Tablet PO 10 mg DAILY KALEN Administration Aspirin 81 mg 10/25/22 14:45 10/31/22 08:42 Aspirin 81 Mg Chewable Tablet PO 81 mg DAILY KALEN Administration Calcium Carbonate 400 mg 10/25/22 14:20 Calcium Carbonate (Tums) 500 Mg (200 Mg Elemental) PO Q6H PRN Indigestion Clonazepam 2 mg 10/25/22 21:00 10/30/22 21:00 Clonazepam (*Crx) 0.5 Mg Tablet PO 2 mg HS KALEN Administration Docusate Sodium 100 mg 10/28/22 19:30 10/31/22 08:42 Docusate Sodium 100 Mg Capsule PO 100 mg Q12HR KALEN Administration Enoxaparin Sodium 40 mg 10/26/22 14:45 10/31/22 08:41 Enoxaparin 40 Mg/0.4 Ml Syringe SUB-Q 40 mg DAILY KALEN Administration Levofloxacin 250 mg 10/28/22 19:45 10/31/22 08:42 Levofloxacin 250 Mg Tablet PO 11/01/22 12:00 250 mg DAILY KALEN Administration Linaclotide 145 mcg 10/25/22 16:30 10/31/22 06:30 Linaclotide 145 Mcg Capsule PO 145 mcg DAILY@0630 KALEN Administration Losartan Potassium 50 mg 10/25/22 14:55 10/31/22 08:42 Losartan Potassium 50 Mg Tablet PO 50 mg DAILY KALEN Administration Nonform Quetiapine 1 each 10/25/22 21:00 10/31/22 00:26 Fumarate 6.25 Mg PO 11/24/22 20:59 1 each Tablet HS KALEN Administration Polyethylene Glycol 17 gm 10/28/22 21:00 10/31/22 08:41 Polyethylene Glycol 3350 17 Gm Powd.Pack PO 17 gm Q12HR KALEN Administration Radiology Re
--- NOTE | 2022-10-31 14:22 | WPDNEUROPN ---
Progress Note: A&P Time Spent With Patient Time with patient: 15 - 25 minutes Subjective Date/time seen: 10/31/22 14:22 Interval history: 82 years old lady with being treated in the hospital right now for the left-sided weakness in addition to the influenza with respiratory difficulties. 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 Her son Marco richmond was contacted and explained accordingly at this stage no further intervention is being carried out history phone number is [phone] and will contact him again if necessary Objective Data Vital Signs Vital Signs: Vital Signs - 24 hr 10/30/22 14:52 10/30/22 21:44 10/30/22 20:25 Temperature 36.2 C L 36.4 C L Pulse Rate 78 75 75 Respiratory Rate 18 14 14 Blood Pressure 131/72 135/59 L Pulse Oximetry 94 94 94 Oxygen Delivery Room Air 10/31/22 05:29 10/31/22 08:50 Temperature 36.8 C Pulse Rate 79 Respiratory Rate 14 Blood Pressure 141/63 H Pulse Oximetry 94 Oxygen Delivery Room Air Intake/Output Intake/Output: Intake & Output 10/28/22 10/29/22 10/30/22 10/31/22 23:59 23:59 23:59 23:59 Intake Total 3120 1642 2100 980 Output Total 2650 2850 2850 1000 Balance 470 -1208 -750 -20 Meds/Results Medications: Active Medications Generic Name Dose Route Start Last Admin Trade Name Freq PRN Reason Stop Dose Admin Acetaminophen 650 mg 10/25/22 14:16 Acetaminophen 325 Mg Tablet PO Q4H PRN Mild Pain (1-3) or Fever Amlodipine Besylate 10 mg 10/25/22 09:00 10/31/22 08:41 Amlodipine Besylate 5 Mg Tablet PO 10 mg DAILY AKLEN Administration Aspirin 81 mg 10/25/22 14:45 10/31/22 08:42 Aspirin 81 Mg Chewable Tablet PO 81 mg DAILY KALEN Administration Calcium Carbonate 400 mg 10/25/22 14:20 Calcium Carbonate (Tums) 500 Mg (200 Mg Elemental) PO Q6H PRN Indigestion Clonazepam 2 mg 10/25/22 21:00 10/30/22 21:00 Clonazepam (*Crx) 0.5 Mg Tablet PO 2 mg HS KALEN Administration Docusate Sodium 100 mg 10/28/22 19:30 10/31/22 08:42 Docusate Sodium 100 Mg Capsule PO 100 mg Q12HR KALEN Administration Enoxaparin Sodium 40 mg 10/26/22 14:45 10/31/22 08:41 Enoxaparin 40 Mg/0.4 Ml Syringe SUB-Q 40 mg DAILY KALEN Administration Levofloxacin 250 mg 10/28/22 19:45 10/31/22 08:42 Levofloxacin 250 Mg Tablet PO 11/01/22 12:00 250 mg DAILY KALEN Administration Linaclotide 145 mcg 10/25/22 16:30 10/31/22 06:30 Linaclotide 145 Mcg Capsule PO 145 mcg DAILY@0630 KALEN Administration Losartan Potassium 50 mg 10/25/22 14:55 10/31/22 08:42 Losartan Potassium 50 Mg Tablet PO 50 mg DAILY KALEN Administration Nonform Quetiapine 1 each 10/25/22 21:00 10/31/22 00:26 Fumarate 6.25 Mg PO 11/24/22 20:59 1 each Tablet HS KALEN Administration Polyethylene Glycol 17 gm 10/28/22 21:00 10/31/22 08:41 Polyethylene Glycol 3350 17 Gm Powd.Pack PO 17 gm Q12HR KALEN Administration Radiology Results: ITS Impressions Chest X-Ray 10/24/22 19:54 IMPRESSION: Pulmonary opacities may represent senescent change and/or bronchiolitis, as can be seen with atypical infection, asthma, aspiration, and small airways disease. Abdomen/Pelvis CT 10/24/22 21:03 IMPRESSION: Fecal impaction with findings concerning for stercoral colitis. Possible cystitis, correlate with urinalysis. Abdomen X-Ray 10/30/22 09:33 IMPRESSION: 1. A stool ball distends the rectum. Lumbar S
--- NOTE | 2022-10-31 15:37 | PM.IMPN ---
Progress Note: A&P Assessment and Plan (1) Ataxia: Code(s): R27.0 - Ataxia, unspecified Status: Acute Assessment and Plan: Patient has a history of a stroke with residual left sided hemiparesis, but per nursing and physical therapy when the patient arrived she could sit in the bed and was minimal assist. Now she cannot sit on the side of the bed or stand without losing balance. Neuro exam was -MRI brain and brainstem with and w/o contrast 10/30/22: without contrast: 1. Increased T2-weighted signal intensity throughout the medulla with enlargement of the medulla. This finding is suspicious for a glioma or subacute infarct. Postcontrast brain MRI is recommended. 2. Old infarcts involving the right basal ganglia, anterior limb right internal capsule, left thalamus, and left side of the shara. 3. Moderate nonspecific cerebral white matter disease, which likely represents chronic small vessel ischemic disease. 4. Scattered foci of old microhemorrhage in the brainstem and cerebellum. With Contrast: 1. 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 Patient and son aware of results. (2) Hyponatremia: Code(s): E87.1 - Hypo-osmolality and hyponatremia Status: Acute Assessment and Plan: Patient has had chronic hyponatremia, which has been at baseline since admission. 10/30 sodium reported 122. 10/31 123 Urine studies c/w euvolemia, SIADH Possible related to [employer] neoplasm vs drugs vs acute illness 10/31 add solute (NaCl tabs), restrict PO fluid, f/u lab (3) Influenza A: Code(s): J10.1 - Influenza due to other identified influenza virus with other respiratory manifestations Status: Acute Assessment and Plan: Adequate oxygen saturation on room air. Clinically improved. -Continue oseltamivir BID (4) Urinary tract infection: Code(s): N39.0 - Urinary tract infection, site not specified Status: Acute Assessment and Plan: Cultures with pseudomonas and Enterobacter both sensitive to zosyn and levofloxacin. Has cephalexin allergy. -Levofloxacin 250 mg daily to finish 11/01/22 (5) Hypertension: Code(s): I10 - Essential (primary) hypertension Status: Acute Assessment and Plan: Continue amlodipine and losartan. (6) Chronic constipation: Code(s): K59.09 - Other constipation Status: Acute Assessment and Plan: Electrolytes now within range. Still reporting constipation. Enema ordered yesterday but not given. Nurse reports giving the enema this morning with no significant stool. Abdomen is soft and does not appear to be developing obstruction or ileus. -Continue miralax BID -Docusate stool softeners BID -Continue linzess 10/31 added senna at HS (7) Debility: Code(s): R53.81 - Other malaise Status: Acute Assessment and Plan: After discussing plan for discharge today the patient stated she does not feel safe to go home as she does not believe she is strong enough. Patient requested placement in SNF. Care coordination is working on placement, so discharge will be held until insurance approval. (8) Leg weakness: Code(s): R29.898 - Other symptoms and signs involving the musculoskeletal system Status: Acute Assessment and Plan: Has the history of left hemiparesis after stroke but now reporting weakness in both legs and is unable to stand. -MRI thoracic and lumbar spine Plan Enoxaparin prophylaxis Subjective Date/time seen: 10/31/22 15:37 Interval history: Poor appetite. Weak in both legs. Admits to being depressed. Constipated. No bowel movement for a few days. Did get enema with some results earlier today. Some abdominal discomfort and cramping. Feels need to evacuate:. Pain is mild. No bleeding.
[2022-10-31] MEDS: SODIUM CHLORIDE 0.9% IV 1,000 ML 50 ML IV CONT (16:14)
[2022-10-31 16:38] LABS: Sodium 124 mmol/L (137-145)
[2022-10-31 17:16] VITALS: BP 133/62; PULSE 89; RESP 16; TEMP 36.3; O2SAT 91
[2022-10-31] MEDS: clonazePAM (*CRX) 0.5 MG TABLET 2 MG PO (21:12)
[2022-10-31] MEDS: SENNOSIDES 8.6 MG TABLET 17.2 MG PO (21:13)
[2022-10-31 21:41] VITALS: BP 151/65; PULSE 81; RESP 14; TEMP 36.9; O2SAT 94
[2022-11-01] MEDS: LINACLOTIDE 145 MCG CAPSULE PO (05:40)
[2022-11-01 05:47] VITALS: BP 151/76; PULSE 93; RESP 14; TEMP 37.3; O2SAT 93
[2022-11-01 06:50] LABS: Anion Gap 5 mmol/L (8-16); Blood Urea Nitrogen 15 mg/dL (7-17); Calcium 8.9 mg/dL (8.4-10.2); Carbon Dioxide 27 mmol/L (22-30); Chloride 95 mmol/L (98-107); Estimated CRCL calculation 68 ml/min; Estimated Glomerular Filt Rate > 60; Glucose 111 mg/dL (65-110); Potassium 3.4 mmol/L (3.4-5.0); Sodium 127 mmol/L (137-145)
[2022-11-01 08:45] VITALS: O2SAT 96
[2022-11-01] MEDS: amLODIPine BESYLATE 5 MG TABLET 10 MG PO (08:54)
[2022-11-01] MEDS: DOCUSATE SODIUM 100 MG CAPSULE PO ×2 (08:54→20:59)
[2022-11-01] MEDS: ASPIRIN 81 MG CHEWABLE TABLET PO (08:54)
[2022-11-01] MEDS: levoFLOXacin 250 MG TABLET PO (08:54)
[2022-11-01] MEDS: polyethylene glycoL 3350 17 GM POWD.PACK PO ×2 (08:54→20:59)
[2022-11-01] MEDS: LOSARTAN POTASSIUM 50 MG TABLET PO (08:54)
[2022-11-01] MEDS: ENOXAPARIN 40 MG/0.4 ML SYRINGE SUB-Q (08:54)
[2022-11-01] MEDS: SODIUM CHLORIDE 0.9% IV 1,000 ML 50 ML IV CONT (11:00)
--- NOTE | 2022-11-01 12:42 | PM.IMPN ---
Progress Note: A&P Assessment and Plan (1) Ataxia: Code(s): R27.0 - Ataxia, unspecified Status: Acute Assessment and Plan: Patient has a history of a stroke with residual left sided hemiparesis, but per nursing and physical therapy when the patient arrived she could sit in the bed and was minimal assist. Now she cannot sit on the side of the bed or stand without losing balance. Neuro exam was -MRI brain and brainstem with and w/o contrast 10/30/22: without contrast: 1. Increased T2-weighted signal intensity throughout the medulla with enlargement of the medulla. This finding is suspicious for a glioma or subacute infarct. Postcontrast brain MRI is recommended. 2. Old infarcts involving the right basal ganglia, anterior limb right internal capsule, left thalamus, and left side of the shara. 3. Moderate nonspecific cerebral white matter disease, which likely represents chronic small vessel ischemic disease. 4. Scattered foci of old microhemorrhage in the brainstem and cerebellum. With Contrast: 1. 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 Patient and son aware of results. (2) Hyponatremia: Code(s): E87.1 - Hypo-osmolality and hyponatremia Status: Acute Assessment and Plan: Patient has had chronic hyponatremia, which has been at baseline since admission. 10/30 sodium reported 122. 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 Clinically improved. -Continue oseltamivir BID (4) Urinary tract infection: Code(s): N39.0 - Urinary tract infection, site not specified Status: Acute Assessment and Plan: Cultures with pseudomonas and Enterobacter both sensitive to zosyn and levofloxacin. Has cephalexin allergy. -Levofloxacin 250 mg daily to finish 11/01/22 (5) Hypertension: Code(s): I10 - Essential (primary) hypertension Status: Acute Assessment and Plan: Continue amlodipine and losartan. (6) Chronic constipation: Code(s): K59.09 - Other constipation Status: Acute Assessment and Plan: Electrolytes now within range. Still reporting constipation. Enema ordered yesterday but not given. Nurse reports giving the enema this morning with no significant stool. Abdomen is soft and does not appear to be developing obstruction or ileus. -Continue miralax BID -Docusate stool softeners BID -Continue linzess 10/31 added senna at HS (7) Debility: Code(s): R53.81 - Other malaise Status: Acute Assessment and Plan: After discussing plan for discharge today the patient stated she does not feel safe to go home as she does not believe she is strong enough. Patient requested placement in SNF. Care coordination is working on placement, so discharge will be held until insurance approval. (8) Leg weakness: Code(s): R29.898 - Other symptoms and signs involving the musculoskeletal system Status: Acute Assessment and Plan: Has the history of left hemiparesis after stroke but now reporting weakness in both legs and is unable to stand. -MRI thoracic and lumbar spine Plan Enoxaparin prophylaxis Subjective Date/time seen: 11/01/22 12:42 no new complaints Exam Narrative: GENERAL: NAD, cooperative HEENT: Normocephalic, atraumatic, anicteric NECK: supple CV: regular rate RESP: CTAB, Normal work of breathing. Abdomen: Soft, non-tender, non-distended, normoactive bowel sounds EXTREMIT
[2022-11-01 14:00] VITALS: BP 152/69; PULSE 89; RESP 14; TEMP 37.4; O2SAT 93
--- NOTE | 2022-11-01 14:34 | PM.PNNEP ---
Progress Note: A&P Assessment and Plan (1) Hyponatremia: Code(s): E87.1 - Hypo-osmolality and hyponatremia Status: Acute Assessment and Plan: acute on chrnnic baseline sodium runs ~ 131 -133 as far back as 2019 reason for acute decline: possibly prerenal factors influenza increased free water intake(?) other? evaluation to date: TSH and cortisol re-ordered SPEP, UPEP, serum/urine osmolality pending CXR results noted MRI of brain noted as well urine electrolytes suggest pre-renal azotemia continue trial of normal saline IVFs follow trend of repeat sodium levels (2) Influenza A: Code(s): J10.1 - Influenza due to other identified influenza virus with other respiratory manifestations Status: Acute Assessment and Plan: s/p Tamiflu continue supportive therapy (3) Hypertension: Code(s): I10 - Essential (primary) hypertension Status: Chronic Assessment and Plan: reasonable control at this time follow trend of hemodyanmics (4) Chronic constipation: Code(s): K59.09 - Other constipation Status: Acute Assessment and Plan: on medications follow trend of BMs Will continue to follow. Subjective Date/time seen: 11/01/22 14:34 No other significant complaints voiced at this time; no events overnight or earlier this morning; improvement in sodium noted with normal saline IVFs at this time; still with some generalized weakness but no worse than on admission. Exam Narrative: General: elderly female in NAD Heart: normal S1 and S2; no rub Lungs: clear to auscultation Abdomen: soft, nontender, nondistended, positive bowel sounds Extremities: no cyanosis or clubbing; no edema Skin: warm and intact Objective Data Vital Signs Vital Signs: Vital Signs Temp Pulse Resp BP Pulse Ox O2 Del Method 11/01/22 14:00 99.4 F 89 14 152/69 H 93 11/01/22 08:45 96 Room Air 11/01/22 05:47 99.1 F 93 14 151/76 H 93 10/31/22 21:12 Room Air 10/31/22 21:41 98.5 F 81 14 151/65 H 94 Intake/Output Intake/Output: Intake & Output 10/29/22 10/30/22 10/31/22 11/01/22 23:59 23:59 23:59 23:59 Intake Total 1642 2100 1220 2230 Output Total 2850 2850 1700 900 [facility] [place] -1208 -750 -480 1330 Meds/Results Medications: Active Medications Generic Name Dose Route Start Last Admin Trade Name Freq PRN Reason Stop Dose Admin Acetaminophen 650 mg 10/25/22 14:16 Acetaminophen 325 Mg Tablet PO Q4H PRN Mild Pain (1-3) or Fever Amlodipine Besylate 10 mg 10/25/22 09:00 11/01/22 08:54 Amlodipine Besylate 5 Mg Tablet PO 10 mg DAILY KALEN Administration Aspirin 81 mg 10/25/22 14:45 11/01/22 08:54 Aspirin 81 Mg Chewable Tablet PO 81 mg DAILY KALEN Administration Calcium Carbonate 400 mg 10/25/22 14:20 Calcium Carbonate (Tums) 500 Mg (200 Mg Elemental) PO Q6H PRN Indigestion Clonazepam 2 mg 10/25/22 21:00 10/31/22 21:12 Clonazepam (*Crx) 0.5 Mg Tablet PO 2 mg HS KALEN Administration Docusate Sodium 100 mg 10/28/22 19:30 11/01/22 08:54 Docusate Sodium 100 Mg Capsule PO 100 mg Q12HR KALEN Administration Enoxaparin Sodium 40 mg 10/26/22 14:45 11/01/22 08:54 Enoxaparin 40 Mg/0.4 Ml Syringe SUB-Q 40 mg DAILY KALEN Administration Sodium Chloride 1,000 mls @ 50 mls/hr 10/31/22 16:10 11/01/22 11:00 Normal Saline Iv IV CONT 50 mls/hr .Q20H KALEN Administration Linaclotide 145 mcg 10/25/22 16:30 11/01/22 05:40 Linaclotide 145 Mcg Capsule PO 145 mcg DAILY@0630 KALEN Administration Losartan Potassium 50 mg 10/25/22 14:55 11/01/22 08:54 Losartan Potassium 50 Mg Tablet PO 50 mg DAILY KALEN Administration Nonform Quetiapine 1 each 10/25/22 21:00 10/31/22 21:13 Fumarate 6.25 Mg PO 11/24/22 20:59 1 each Tablet HS KALEN Administration Polyethylene Glycol 17 gm 10/28/22 21:00 11/01/22 08:
--- NOTE | 2022-11-01 14:34 | P.PNNP_ITS ---
Progress Note: A&P Assessment and Plan (1) Hyponatremia: Code(s): E87.1 - Hypo-osmolality and hyponatremia Status: Acute Assessment and Plan: * acute on chrnnic * baseline sodium runs ~ 131 -133 as far back as 2020 * reason for acute decline: * possibly prerenal factors * influenza * increased free water intake(?) * other? * evaluation to date: * TSH and cortisol re-ordered * SPEP, UPEP, serum/urine osmolality pending * CXR results noted * MRI of brain noted as well * urine electrolytes suggest pre-renal azotemia * continue trial of normal saline IVFs * follow trend of repeat sodium levels (2) Influenza A: Code(s): J10.1 - Influenza due to other identified influenza virus with other respiratory manifestations Status: Acute Assessment and Plan: * s/p Tamiflu * continue supportive therapy (3) Hypertension: Code(s): I10 - Essential (primary) hypertension Status: Chronic Assessment and Plan: * reasonable control at this time * follow trend of hemodyanmics (4) Chronic constipation: Code(s): K59.09 - Other constipation Status: Acute Assessment and Plan: * on medications * follow trend of BMs Will continue to follow. Subjective Date/time seen: 11/01/22 14:34 No other significant complaints voiced at this time; no events overnight or earlier this morning; improvement in sodium noted with normal saline IVFs at this time; still with some generalized weakness but no worse than on admission. Exam Narrative: General: elderly female in NAD Heart: normal S1 and S2; no rub Lungs: clear to auscultation Abdomen: soft, nontender, nondistended, positive bowel sounds Extremities: no cyanosis or clubbing; no edema Skin: warm and intact Objective Data Vital Signs Vital Signs: Vital Signs Temp Pulse Resp BP Pulse Ox O2 Del Method 11/01/22 14:00 99.4 F 89 14 152/69 H 93 11/01/22 08:45 96 Room Air 11/01/22 05:47 99.1 F 93 14 151/76 H 93 10/31/22 21:12 Room Air 10/31/22 21:41 98.5 F 81 14 151/65 H 94 Intake/Output Intake/Output: Intake & Output 10/29/22 10/30/22 10/31/22 11/01/22 23:59 23:59 23:59 23:59 Intake Total 1642 2100 1220 2230 Output Total 2850 2850 1700 900 [facility] -[phone] 1331 Meds/Results Medications: Active Medications Generic Name Dose Route Start Last Admin Trade Name Freq PRN Reason Stop Dose Admin Acetaminophen 650 mg 10/25/22 14:16 Acetaminophen 325 Mg Tablet PO Q4H PRN Mild Pain (1-3) or Fever Amlodipine Besylate 10 mg 10/25/22 09:00 11/01/22 08:54 Amlodipine Besylate 5 Mg Tablet PO 10 mg DAILY KALEN Administration Aspirin 81 mg 10/25/22 14:45 11/01/22 08:54 Aspirin 81 Mg Chewable Tablet PO 81 mg DAILY KALEN Administration Calcium Carbonate 400 mg 10/25/22 14:20 Calcium Carbonate (Tums) 500 Mg (200 Mg Elemental) PO Q6H PRN Indigestion Clonazepam 2 mg 10/25/22 21:00 10/31/22 21:12 Clonazepam (*Crx) 0.5 Mg Tablet PO 2 mg HS KALEN Administra
[2022-11-01] MEDS: SENNOSIDES 8.6 MG TABLET 17.2 MG PO (20:59)
[2022-11-01] MEDS: clonazePAM (*CRX) 0.5 MG TABLET 2 MG PO (21:00)
[2022-11-01 22:00] VITALS: BP 143/74; PULSE 89; RESP 20; TEMP 36.7; O2SAT 91
[2022-11-02] MEDS: LINACLOTIDE 145 MCG CAPSULE PO (05:47)
[2022-11-02] MEDS: SODIUM CHLORIDE 0.9% IV 1,000 ML 50 ML IV CONT (05:53)
[2022-11-02 06:00] VITALS: BP 159/80; PULSE 91; RESP 22; TEMP 36.9; O2SAT 92
[2022-11-02 06:52] LABS: Anion Gap 5 mmol/L (8-16); Blood Urea Nitrogen 15 mg/dL (7-17); Calcium 8.8 mg/dL (8.4-10.2); Carbon Dioxide 27 mmol/L (22-30); Chloride 97 mmol/L (98-107); Estimated CRCL calculation 68 ml/min; Estimated Glomerular Filt Rate > 60; Glucose 106 mg/dL (65-110); Potassium 3.4 mmol/L (3.4-5.0); Sodium 129 mmol/L (137-145)
[2022-11-02] MEDS: ENOXAPARIN 40 MG/0.4 ML SYRINGE SUB-Q (08:31)
[2022-11-02] MEDS: amLODIPine BESYLATE 5 MG TABLET 10 MG PO (08:31)
[2022-11-02] MEDS: polyethylene glycoL 3350 17 GM POWD.PACK PO ×2 (08:31→21:39)
[2022-11-02] MEDS: ASPIRIN 81 MG CHEWABLE TABLET PO (08:31)
[2022-11-02] MEDS: LOSARTAN POTASSIUM 50 MG TABLET PO (08:31)
[2022-11-02] MEDS: DOCUSATE SODIUM 100 MG CAPSULE PO ×2 (08:31→21:39)
[2022-11-02 08:35] VITALS: O2SAT 92
--- NOTE | 2022-11-02 10:04 | PCNFU ---
Nutrition Follow-Up Complete: Inadequate oral intake related to loss of appetite as evidenced by patient report Goal:Adequate PO intake at least 75% meals - Not meeting goal Pt current nutrition is Regular diet. Fluid restriction 1.5 L/day. [place] Ensure Enlive BID. Intakes 28% average. Nutrition recommendation: Continue current diet order, regular diet and Ensure Enlive BID Last recorded weight is 82.2 kg. Bowel Motility: +1 BM 11/02/22 Labs Reviewed: Na 129, Creat 0.6 Meds Noted: Lovenox, Linzess, Zosyn Skin: WNL Additional Notes: Appetite remains poor. Likely discharge to SNF Monitoring weights, intakes, labs, supplement tolerance, plan of care. Follow up in 7 days
--- NOTE | 2022-11-02 11:29 | P.PNIM_ITS ---
Progress Note: A&P Assessment and Plan (1) Ataxia: Code(s): R27.0 - Ataxia, unspecified Status: Acute Assessment and Plan: Patient has a history of a stroke with residual left sided hemiparesis, but per nursing and physical therapy when the patient arrived she could sit in the bed and was minimal assist. Now she cannot sit on the side of the bed or stand without losing balance. Neuro exam was -MRI brain and brainstem with and w/o contrast 10/30/22: without contrast: 1. Increased T2-weighted signal intensity throughout the medulla with enlargement of the medulla. This finding is suspicious for a glioma or subacute infarct. Postcontrast brain MRI is recommended. 2. Old infarcts involving the right basal ganglia, anterior limb right internal capsule, left thalamus, and left side of the shara. 3. Moderate nonspecific cerebral white matter disease, which likely represents chronic small vessel ischemic disease. 4. Scattered foci of old microhemorrhage in the brainstem and cerebellum. With Contrast: 1. 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 Patient and son aware of results. (2) Hyponatremia: Code(s): E87.1 - Hypo-osmolality and hyponatremia Status: Acute Assessment and Plan: Patient has had chronic hyponatremia, which has been at baseline since admission. 10/30 sodium reported 122. 10/31 123 Urine studies c/w euvolemia, SIADH Possible related to [employer] EXAMINER neoplasm vs drugs vs acute illness 10/31 add solute (NaCl tabs), restrict PO fluid, f/u lab sodium improving (3) Influenza A: Code(s): J10.1 - Influenza due to other identified influenza virus with other respiratory manifestations Status: Acute Assessment and Plan: Adequate oxygen saturation on room air. Clinically improved. -Continue oseltamivir BID (4) Urinary tract infection: Code(s): N39.0 - Urinary tract infection, site not specified Status: Acute Assessment and Plan: Cultures with pseudomonas and Enterobacter both sensitive to zosyn and levofloxacin. Has cephalexin allergy. -Levofloxacin 250 mg daily to finish 11/01/22 (5) Hypertension: Code(s): I10 - Essential (primary) hypertension Status: Chronic Assessment and Plan: Continue amlodipine and losartan. (6) Chronic constipation: Code(s): K59.09 - Other constipation Status: Acute Assessment and Plan: Electrolytes now within range. Still reporting constipation. Enema ordered yesterday but not given. Nurse reports giving the enema this morning with no significant stool. Abdomen is soft and does not appear to be developing obstruction or ileus. -Continue miralax BID -Docusate stool softeners BID -Continue linzess 10/31 added senna at HS (7) Debility: Code(s): R53.81 - Other malaise Status: Acute Assessment and Plan: After discussing plan for discharge today the patient stated she does not feel safe to go home as she does not believe she is strong enough. Patient requested placement in SNF. Care coordination is working on placement, so discharge will be held until insurance approval. (8) Leg weakness: Code(s): R29.898 - Other symptoms and signs involving the musculoskeletal system Status: Acute Assessment and Plan: Has the history of left hemiparesis after stroke but now reporting weakness in both legs and i
[2022-11-02 14:00] VITALS: BP 136/66; PULSE 80; RESP 18; TEMP 36.7; O2SAT 94
--- NOTE | 2022-11-02 17:19 | P.PNNP_ITS ---
Progress Note: A&P Assessment and Plan (1) Hyponatremia: Code(s): E87.1 - Hypo-osmolality and hyponatremia Status: Acute Assessment and Plan: * acute on chronic * baseline sodium runs ~ 131 -133 as far back as 2019 * TSH is okay. * Cortisol level is not above 15. she is not on a steroid. Will check Cortrosyn stim . * Electrophoresis pending. * Brain MRI shows low-grade glioma. * Chest x-ray showed pulmonary opacities which may represent senescent change and/or bronchiolitis, as can be seen with atypical infection, asthma, aspiration, and small airways disease. * reason for acute decline: * possibly prerenal factors * influenza * increased free water intake(?) * other? * sodium level is slowly rising. This morning up to 129 * will continue trial of normal saline IVFs * check a sodium in the morning (2) Influenza A: Code(s): J10.1 - Influenza due to other identified influenza virus with other respiratory manifestations Status: Acute Assessment and Plan: * s/p Tamiflu * continue supportive therapy (3) Hypertension: Code(s): I10 - Essential (primary) hypertension Status: Chronic Assessment and Plan: * reasonable control at this time * follow trend of hemodyanmics (4) Chronic constipation: Code(s): K59.09 - Other constipation Status: Acute Assessment and Plan: * on medications * follow trend of BMs Will continue to follow. Subjective Date/time seen: 11/02/22 17:19 Interval history: patient is resting comfortably in bed. She has no chest pain or shortness of breath. Exam Narrative: General: elderly female in NAD Heart: normal S1 and S2; no rub or gallop Lungs: clear Abdomen: soft, nontender, nondistended, positive bowel sounds Extremities: no cyanosis or clubbing; no edema Skin: no rash Objective Data Vital Signs Vital Signs: Vital Signs - 24 hr 11/01/22 22:00 11/01/22 21:10 11/02/22 06:00 Temperature 98.0 F 98.5 F Pulse Rate 89 91 Respiratory Rate 20 22 H Blood Pressure 143/74 H 159/80 H Pulse Oximetry 91 92 Oxygen Delivery Room Air 11/02/22 08:35 11/02/22 14:00 Temperature 98.1 F Pulse Rate 80 Respiratory Rate 18 Blood Pressure 136/66 Pulse Oximetry 92 94 Oxygen Delivery Room Air Intake/Output Intake/Output: Intake & Output 10/30/22 10/31/22 11/01/22 11/02/22 23:59 23:59 23:59 23:59 Intake Total 2100 1220 2470 1950 Output Total 2850 1700 2400 Balance -750 -833 29 6418 Meds/Results Medications: Active Medications Generic Name Dose Route Start Last Admin Trade Name Freq PRN Reason Stop Dose Admin Acetaminophen 650 mg 10/25/22 14:16 Acetaminophen 325 Mg Tablet PO Q4H PRN Mild Pain (1-3) or Fever Amlodipine Besylate 10 mg 10/25/22 09:00 11/02/22 08:31 Amlodipine Besylate 5 Mg Tablet PO 10 mg DAILY KALEN Administration Aspirin 81 mg 10/25/22 14:45 11/02/22 08:31 Aspirin 81 Mg Chewable Tablet PO 81 mg DAILY KALEN Administration Calcium Carbonate 400 m
--- NOTE | 2022-11-02 17:19 | PM.PNNEP ---
Progress Note: A&P Assessment and Plan (1) Hyponatremia: Code(s): E87.1 - Hypo-osmolality and hyponatremia Status: Acute Assessment and Plan: acute on chronic baseline sodium runs ~ 131 -133 as far back as 2019 TSH is okay. Cortisol level is not above 15. she is not on a steroid. Will check Cortrosyn stim . Electrophoresis pending. Brain MRI shows low-grade glioma. Chest x-ray showed pulmonary opacities which may represent senescent change and/or bronchiolitis, as can be seen with atypical infection, asthma, aspiration, and small airways disease. reason for acute decline: possibly prerenal factors influenza increased free water intake(?) other? sodium level is slowly rising. This morning up to 129 will continue trial of normal saline IVFs check a sodium in the morning (2) Influenza A: Code(s): J10.1 - Influenza due to other identified influenza virus with other respiratory manifestations Status: Acute Assessment and Plan: s/p Tamiflu continue supportive therapy (3) Hypertension: Code(s): I10 - Essential (primary) hypertension Status: Chronic Assessment and Plan: reasonable control at this time follow trend of hemodyanmics (4) Chronic constipation: Code(s): K59.09 - Other constipation Status: Acute Assessment and Plan: on medications follow trend of BMs Will continue to follow. Subjective Date/time seen: 11/02/22 17:19 Interval history: patient is resting comfortably in bed. She has no chest pain or shortness of breath. Exam Narrative: General: elderly female in NAD Heart: normal S1 and S2; no rub or gallop Lungs: clear Abdomen: soft, nontender, nondistended, positive bowel sounds Extremities: no cyanosis or clubbing; no edema Skin: no rash Objective Data Vital Signs Vital Signs: Vital Signs - 24 hr 11/01/22 22:00 11/01/22 21:10 11/02/22 06:00 Temperature 98.0 F 98.5 F Pulse Rate 89 91 Respiratory Rate 20 22 H Blood Pressure 143/74 H 159/80 H Pulse Oximetry 91 92 Oxygen Delivery Room Air 11/02/22 08:35 11/02/22 14:00 Temperature 98.1 F Pulse Rate 80 Respiratory Rate 18 Blood Pressure 136/66 Pulse Oximetry 92 94 Oxygen Delivery Room Air Intake/Output Intake/Output: Intake & Output 10/30/22 10/31/22 11/01/22 11/02/22 23:59 23:59 23:59 23:59 Intake Total 2100 1220 2470 1950 Output Total 2850 1700 2400 Balance -750 -891 86 4534 Meds/Results Medications: Active Medications Generic Name Dose Route Start Last Admin Trade Name Freq PRN Reason Stop Dose Admin Acetaminophen 650 mg 10/25/22 14:16 Acetaminophen 325 Mg Tablet PO Q4H PRN Mild Pain (1-3) or Fever Amlodipine Besylate 10 mg 10/25/22 09:00 11/02/22 08:31 Amlodipine Besylate 5 Mg Tablet PO 10 mg DAILY KALEN Administration Aspirin 81 mg 10/25/22 14:45 11/02/22 08:31 Aspirin 81 Mg Chewable Tablet PO 81 mg DAILY KALEN Administration Calcium Carbonate 400 mg 10/25/22 14:20 Calcium Carbonate (Tums) 500 Mg (200 Mg Elemental) PO Q6H PRN Indigestion Clonazepam 2 mg 10/25/22 21:00 11/01/22 21:00 Clonazepam (*Crx) 0.5 Mg Tablet PO 2 mg HS KALEN Administration Docusate Sodium 100 mg 10/28/22 19:30 11/02/22 08:31 Docusate Sodium 100 Mg Capsule PO 100 mg Q12HR KALEN Administration Enoxaparin Sodium 40 mg 10/26/22 14:45 11/02/22 08:31 Enoxaparin 40 Mg/0.4 Ml Syringe SUB-Q 40 mg DAILY KALEN Administration Guaifenesin 600 mg 11/02/22 21:00 Guaifenesin 12 Hr 600 Mg Tabcr PO Q12HR [facility] Sodium Chloride 1,000 mls @ 50 mls/hr 10/31/22 16:10 11/02/22 05:53 Normal Saline Iv IV CONT 50 mls/hr .Q20H KALEN Administration Linaclotide 145 mcg 10/25/22 16:30 11/02/22 05:47 Linaclotide 145 Mcg Capsule PO 145 mcg DAILY@0630 KALEN Administration Losartan Potassium 50 mg
[2022-11-02] MEDS: COSYNTROPIN 0.25 MG/ML VIAL IV PUSH (18:08)
[2022-11-02] MEDS: SENNOSIDES 8.6 MG TABLET 17.2 MG PO (21:38)
[2022-11-02] MEDS: clonazePAM (*CRX) 0.5 MG TABLET 2 MG PO (21:38)
[2022-11-02] MEDS: guaiFENesin 12 HR 600 MG TABCR PO (21:40)
[2022-11-02 21:48] VITALS: BP 151/76; PULSE 93; RESP 18; TEMP 36.7; O2SAT 93
[2022-11-03] MEDS: SODIUM CHLORIDE 0.9% IV 1,000 ML 50 ML IV CONT (01:55)
[2022-11-03] MEDS: LINACLOTIDE 145 MCG CAPSULE PO (05:53)
[2022-11-03 06:00] VITALS: BP 158/79; PULSE 95; RESP 20; TEMP 36.4; O2SAT 92
[2022-11-03 07:06] LABS: Albumin Level 3.5 g/dL (3.5-5.1); Anion Gap 5 mmol/L (8-16); Blood Urea Nitrogen 16 mg/dL (7-17); Calcium 8.9 mg/dL (8.4-10.2); Carbon Dioxide 28 mmol/L (22-30); Chloride 100 mmol/L (98-107); Estimated CRCL calculation 68 ml/min; Estimated Glomerular Filt Rate > 60; Glucose 105 mg/dL (65-110); Phosphorus 3.7 mg/dL (2.5-4.5); Potassium 3.3 mmol/L (3.4-5.0); Sodium 133 mmol/L (137-145)
--- NOTE | 2022-11-03 09:06 | P.PNNP_ITS ---
Progress Note: A&P Assessment and Plan (1) Hyponatremia: Code(s): E87.1 - Hypo-osmolality and hyponatremia Status: Acute Assessment and Plan: * acute on chronic * baseline sodium runs ~ 131 -133 as far back as 2019 * TSH is okay. * Cortisol level is not above 15. jeffry stim okay * Electrophoresis pending. * Brain MRI shows low-grade glioma. * Chest x-ray showed pulmonary opacities which may represent senescent change and/or bronchiolitis, as can be seen with atypical infection, asthma, aspiration, and small airways disease. * reason for acute decline: * possibly prerenal factors * influenza * increased free water intake(?) * sodium level is slowly rising. This morning up to 133 * eating better. will stop the ivfs this afternooon * check a sodium in the morning (2) Influenza A: Code(s): J10.1 - Influenza due to other identified influenza virus with other respiratory manifestations Status: Acute Assessment and Plan: * s/p Tamiflu * continue supportive therapy (3) Hypertension: Code(s): I10 - Essential (primary) hypertension Status: Chronic Assessment and Plan: * reasonable control at this time * follow trend of hemodyanmics (4) Chronic constipation: Code(s): K59.09 - Other constipation Status: Acute Assessment and Plan: * on medications * follow trend of BMs Will continue to follow. Subjective Date/time seen: 11/03/22 09:06 Interval history: patient is resting comfortably in bed. eating breakfast. no sob. no edema Exam Narrative: General: elderly female in NAD Heart: normal S1 and S2; no rub or gallop Lungs: clear bilaterally Abdomen: soft, nontender, nondistended, positive bowel sounds Extremities: no edema Skin: no rash Objective Data Vital Signs Vital Signs: Vital Signs - 24 hr 11/02/22 14:00 11/02/22 21:48 11/02/22 20:00 Temperature 98.1 F 98.0 F Pulse Rate 80 93 Respiratory Rate 18 18 Blood Pressure 136/66 151/76 H Pulse Oximetry 94 93 Oxygen Delivery Room Air 11/03/22 06:00 Temperature 97.6 F Pulse Rate 95 Respiratory Rate 20 Blood Pressure 158/79 H Pulse Oximetry 92 Oxygen Delivery Intake/Output Intake/Output: Intake & Output 10/31/22 11/01/22 11/02/2211/03/22 23:59 23:59 23:59 23:59 Intake Total 1220 2470 2370 1100 Output Total 1700 2400 800 Balance -488 00 7415 300 Meds/Results Medications: Active Medications Generic Name Dose Route Start Last Admin Trade Name Freq PRN Reason Stop Dose Admin Acetaminophen 650 mg 10/25/22 14:16 Acetaminophen 325 Mg Tablet PO Q4H PRN Mild Pain (1-3) or Fever Amlodipine Besylate 10 mg 10/25/22 09:00 11/02/22 08:31 Amlodipine Besylate 5 Mg Tablet PO 10 mg DAILY KALEN Administration Aspirin 81 mg 10/25/22 14:45 11/02/22 08:31 Aspirin 81 Mg Chewable Tablet PO 81 mg DAILY KALEN Administration Calcium Carbonate 400 mg 10/25/22 14:20 Calcium Carbonate (Tums) 500 Mg (200 Mg Elemental) PO Q6H PA
--- NOTE | 2022-11-03 09:06 | PM.PNNEP ---
Progress Note: A&P Assessment and Plan (1) Hyponatremia: Code(s): E87.1 - Hypo-osmolality and hyponatremia Status: Acute Assessment and Plan: acute on chronic baseline sodium runs ~ 131 -133 as far back as 2019 TSH is okay. Cortisol level is not above 15. jeffry stim okay Electrophoresis pending. Brain MRI shows low-grade glioma. Chest x-ray showed pulmonary opacities which may represent senescent change and/or bronchiolitis, as can be seen with atypical infection, asthma, aspiration, and small airways disease. reason for acute decline: possibly prerenal factors influenza increased free water intake(?) sodium level is slowly rising. This morning up to 133 eating better. will stop the ivfs this afternooon check a sodium in the morning (2) Influenza A: Code(s): J10.1 - Influenza due to other identified influenza virus with other respiratory manifestations Status: Acute Assessment and Plan: s/p Tamiflu continue supportive therapy (3) Hypertension: Code(s): I10 - Essential (primary) hypertension Status: Chronic Assessment and Plan: reasonable control at this time follow trend of hemodyanmics (4) Chronic constipation: Code(s): K59.09 - Other constipation Status: Acute Assessment and Plan: on medications follow trend of BMs Will continue to follow. Subjective Date/time seen: 11/03/22 09:06 Interval history: patient is resting comfortably in bed. eating breakfast. no sob. no edema Exam Narrative: General: elderly female in NAD Heart: normal S1 and S2; no rub or gallop Lungs: clear bilaterally Abdomen: soft, nontender, nondistended, positive bowel sounds Extremities: no edema Skin: no rash Objective Data Vital Signs Vital Signs: Vital Signs - 24 hr 11/02/22 14:00 11/02/22 21:48 11/02/22 20:00 Temperature 98.1 F 98.0 F Pulse Rate 80 93 Respiratory Rate 18 18 Blood Pressure 136/66 151/76 H Pulse Oximetry 94 93 Oxygen Delivery Room Air 11/03/22 06:00 Temperature 97.6 F Pulse Rate 95 Respiratory Rate 20 Blood Pressure 158/79 H Pulse Oximetry 92 Oxygen Delivery Intake/Output Intake/Output: Intake & Output 10/31/22 11/01/22 11/02/22 11/03/22 23:59 23:59 23:59 23:59 Intake Total 1220 2470 2370 1100 Output Total 1700 2400 800 Balance -817 82 6894 300 Meds/Results Medications: Active Medications Generic Name Dose Route Start Last Admin Trade Name Freq PRN Reason Stop Dose Admin Acetaminophen 650 mg 10/25/22 14:16 Acetaminophen 325 Mg Tablet PO Q4H PRN Mild Pain (1-3) or Fever Amlodipine Besylate 10 mg 10/25/22 09:00 11/02/22 08:31 Amlodipine Besylate 5 Mg Tablet PO 10 mg DAILY KALEN Administration Aspirin 81 mg 10/25/22 14:45 11/02/22 08:31 Aspirin 81 Mg Chewable Tablet PO 81 mg DAILY KALEN Administration Calcium Carbonate 400 mg 10/25/22 14:20 Calcium Carbonate (Tums) 500 Mg (200 Mg Elemental) PO Q6H PRN Indigestion Clonazepam 2 mg 10/25/22 21:00 11/02/22 21:38 Clonazepam (*Crx) 0.5 Mg Tablet PO 2 mg HS KALEN Administration Docusate Sodium 100 mg 10/28/22 19:30 11/02/22 21:39 Docusate Sodium 100 Mg Capsule PO 100 mg Q12HR KALEN Administration Enoxaparin Sodium 40 mg 10/26/22 14:45 11/02/22 08:31 Enoxaparin 40 Mg/0.4 Ml Syringe SUB-Q 40 mg DAILY KALEN Administration Guaifenesin 600 mg 11/02/22 21:00 11/02/22 21:40 Guaifenesin 12 Hr 600 Mg Tabcr PO 600 mg Q12HR KALEN Administration Sodium Chloride 1,000 mls @ 50 mls/hr 10/31/22 16:10 11/03/22 01:53 Normal Saline Iv IV CONT Infused .Q20H KALEN Infusion Linaclotide 145 mcg 10/25/22 16:30 11/03/22 05:53 Linaclotide 145 Mcg Capsule PO 145 mcg DAILY@0630 KALEN Administration Losartan Potassium 50 mg 10/25/22 14:55 11/02/22 08:31 Losartan Potassium 50 Mg Tablet PO 50 m
[2022-11-03] MEDS: guaiFENesin 12 HR 600 MG TABCR PO (09:27)
[2022-11-03] MEDS: LOSARTAN POTASSIUM 50 MG TABLET PO (09:27)
[2022-11-03] MEDS: amLODIPine BESYLATE 5 MG TABLET 10 MG PO (09:27)
[2022-11-03] MEDS: ENOXAPARIN 40 MG/0.4 ML SYRINGE SUB-Q (09:27)
[2022-11-03 09:28] VITALS: RESP 20; O2SAT 92
[2022-11-03] MEDS: ASPIRIN 81 MG CHEWABLE TABLET PO (09:28)
[2022-11-03] MEDS: polyethylene glycoL 3350 17 GM POWD.PACK PO (09:28)
[2022-11-03] MEDS: DOCUSATE SODIUM 100 MG CAPSULE PO (09:28)
--- NOTE | 2022-11-03 12:34 | PM.DS ---
DS: Admitting Diagnosis Discharge Date November 03, 2022 Admitting Diagnosis weakness DS: Discharge Diagnosis Discharge Diagnosis (1) Ataxia: Code(s): R27.0 - Ataxia, unspecified Status: Acute Assessment and Plan: Patient has a history of a stroke with residual left sided hemiparesis, but per nursing and physical therapy when the patient arrived she could sit in the bed and was minimal assist. Now she cannot sit on the side of the bed or stand without losing balance. Neuro exam was -MRI brain and brainstem with and w/o contrast 10/30/22: without contrast: 1. Increased T2-weighted signal intensity throughout the medulla with enlargement of the medulla. This finding is suspicious for a glioma or subacute infarct. Postcontrast brain MRI is recommended. 2. Old infarcts involving the right basal ganglia, anterior limb right internal capsule, left thalamus, and left side of the shara. 3. Moderate nonspecific cerebral white matter disease, which likely represents chronic small vessel ischemic disease. 4. Scattered foci of old microhemorrhage in the brainstem and cerebellum. With Contrast: 1. 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 Patient and son aware of results. lengthy discussion with the patient about treatment options and further investigation and workup. Patient is unsure if she wants to have anything done at this point in time. (2) Hyponatremia: Code(s): E87.1 - Hypo-osmolality and hyponatremia Status: Acute Assessment and Plan: Patient has had chronic hyponatremia, which has been at baseline since admission. 10/30 sodium reported 122. 10/31 123 Urine studies c/w euvolemia, SIADH Possible related to B[employer]ER neoplasm vs drugs vs acute illness 10/31 add solute (NaCl tabs), restrict PO fluid, f/u lab sodium improving (3) Influenza A: Code(s): J10.1 - Influenza due to other identified influenza virus with other respiratory manifestations Status: Acute Assessment and Plan: Adequate oxygen saturation on room air. Clinically improved. -Continue oseltamivir BID (4) Urinary tract infection: Code(s): N39.0 - Urinary tract infection, site not specified Status: Acute Assessment and Plan: Cultures with pseudomonas and Enterobacter both sensitive to zosyn and levofloxacin. Has cephalexin allergy. -Levofloxacin 250 mg daily to finish 11/01/22 (5) Hypertension: Code(s): I10 - Essential (primary) hypertension Status: Chronic Assessment and Plan: Continue amlodipine and losartan. (6) Chronic constipation: Code(s): K59.09 - Other constipation Status: Acute Assessment and Plan: Electrolytes now within range. Still reporting constipation. Enema ordered yesterday but not given. Nurse reports giving the enema this morning with no significant stool. Abdomen is soft and does not appear to be developing obstruction or ileus. -Continue miralax BID -Docusate stool softeners BID -Continue linzess 10/31 added senna at HS (7) Debility: Code(s): R53.81 - Other malaise Status: Acute Assessment and Plan: After discussing plan for discharge today the patient stated she does not feel safe to go home as she does not believe she is strong enough. Patient requested placement in SNF. Care coordination is working on placement, so discharge will be held until insurance approval. (8) Leg weakness: Code(s): R29.898 - Other symptoms and signs involving the musculoskeletal system Status: Acute Assessment and Plan: Has the history of left hemiparesis after stroke but now reporting weakness in both legs and is unable to stand. -MRI thoracic and lumbar spine Plan Enoxaparin prophylaxis DS: Summary Hospital Course
--- NOTE | 2022-11-03 15:10 | PC.NURSE ---
To chest pain center via bed until ambulance arrives to take patient to [facility] in [place].
--- NOTE | 2022-11-03 15:36 | PCPTNOTE ---
The patient treatment was not able to be completed today. PT attempted to see patient 2x in A.M. and 2 x in P.M.. Patient unavailable on each attempt. Will plan to continue treatment per plan of care.
[2022-11-04 14:05] LABS: Alpha 1 Globulin 0.4 g/dL (0.2-0.3); Beta 1 Globulin 0.3 g/dL (0.4-0.6); Gamma Globulin 0.5 g/dL (0.8-1.7); Protein, Total 5.4 g/dL (6.1-8.1)
[2022-11-06 21:23] LABS: Osmolality, Urine 157 mOsm/kg (50-1200)
[2022-11-09 06:43] LABS: Creatinine, Random Urine 21 mg/dL (20-275)
== END 2022-11-03 17:35 | DRG 699 ==
LOC: ANHED 23:19 → ANH3MEDSUR 10-25 02:09 → ANHCPC 11-04 12:58
PROVIDERS: Family Medicine; Internal Medicine; Internal Medicine Nephrology; Admitting Provider Internal Medicine; Emergency Provider Emergency Medicine; PCP Internal Medicine; Visit Provider Chiropractor
DX: T83.511A Infection and inflammatory reaction due to indwelling urethral catheter, initial encounter (principal); E87.1 Hypo-osmolality and hyponatremia; I69.354 Hemiplegia and hemiparesis following cerebral infarction affecting left non-dominant side; J10.1 Influenza due to other identified influenza virus with other respiratory manifestations; N39.0 Urinary tract infection, site not specified; B96.5 Pseudomonas (aeruginosa) (mallei) (pseudomallei) as the cause of diseases classified elsewhere; B96.89 Other specified bacterial agents as the cause of diseases classified elsewhere; F41.9 Anxiety disorder, unspecified; F32.A Depression, unspecified; G93.89 Other specified disorders of brain; I10 Essential (primary) hypertension; K59.09 Other constipation; M41.9 Scoliosis, unspecified; R05.9 Cough, unspecified; R33.9 Retention of urine, unspecified; R53.81 Other malaise; Z98.1 Arthrodesis status; Z87.891 Personal history of nicotine dependence; Z79.82 Long term (current) use of aspirin; Z20.822 Contact with and (suspected) exposure to COVID-19; Z88.1 Allergy status to other antibiotic agents; Z88.8 Allergy status to other drugs, medicaments and biological substances
CPT/HCPCS: 36415; 51702; 70551; 70552; 71045; 72146; 72148; 74019; 74177; 80048; 80053; 80069; 81001; 82533; 82570; 83690; 83735; 83930; 83935; 84100; 84155; 84156; 84165; 84166; 84295; 84300; 84439; 84443; 84484; 85025; 85027; 87077; 87086; 87088; 87186; 87636; 93005; 96365; 97110; 97161; 97165; 97530; 97535; 99285; A9270; A9577; G0378; J0834; J1650; J2543; J3480; J7030; J7040; J7060; Q9967

== ENCOUNTER 2022-11-17 10:20 | Inpatient (IN) | payer MEDICARE, SELFPAY ==
[2022-11-17] VITALS (18 sets, daily range): BP systolic 116–154; BP diastolic 67–87; PULSE 73–95; RESP 16–25; TEMP 36.4–36.5; O2SAT 93–97; BMI 28.6
--- NOTE | ~2022-11-17 | XR_ITS ---
XR abdomen NG/feed tube insert INDICATION: Evaluate NG tube position. TECHNIQUE: Limited KUB perform for evaluating NG tube . COMPARISON: 10/30/2022 FINDINGS: NG tube tip in the stomach. Visualized bowel gas pattern is unremarkable.Claros jennifer a re noted. IMPRESSION: 1: NG tube tip in the stomach. Reviewed, dictated and finalized at location A. ENT GRINDER
--- NOTE | ~2022-11-17 | XR_ITS ---
XR chest 2V DATE: 11/17/2022 11:09 INDICATION: Cough, shortness of breath TECHNIQUE: AP and lateral views COMPARISON: 10/24/2022 portable AP chest FINDINGS: Normal heart size. Aortic calcification. No hilar or mediastinal enlargement. No pulmonary infiltrate or consolidation, pleural effusion or pulmonary vascular congestion or pneumothorax. Prominent levoscoliosis of the upper thoracic spine and dextroscoliosis of the lower thoracic and lum bar spine. Bilateral lower thoracic and lumbar pedicle screws and rods. There is osteopenia. IMPRESSION: No active cardiopulmonary disease Reviewed, dictated and finalized at location L. INE TECHNICIAN
--- NOTE | ~2022-11-17 | US_ITS ---
Duplex Sonography of the bilateral lower extremities: Indication: Swelling, pulmonary embolus Sagittal and transverse B-mode images as well as color-flow imaging were performed on the right and l eft femoral and popliteal veins. B-mode examination was done without and with compression in the tra nsverse plane. There is good visualization of the bilateral common femoral, proximal profunda femora l, superficial femoral, greater saphenous, and popliteal veins. Right common femoral, profunda femoral, superficial femoral, and popliteal veins are patent, with nor mal flow and compressibility. Right posterior tibial, peroneal, and gastrocnemius veins are also nj nt. Left popliteal vein is noncompressible, with absence of flow and echogenic thrombus. Thrombus propaga kyaw distally into the left peroneal and posterior tibial veins, which are also noncompressible. More proximal deep venous structures in the left lower extremity are patent, including the left common fem oral, profunda femoral, and superficial femoral veins. Impression: Thrombosis involving left popliteal vein, left peroneal vein, and left posterior tibial vein. Reviewed, dictated and finalized at location M. MATIC TUBE REPAIRER Impression: Thrombosis involving left popliteal vein, left peroneal vein, and left posterio r tibial vein.
--- NOTE | ~2022-11-17 | CT_ITS ---
EXAMINATION: CTA chest PE protocol DATE: 11/17/2022 13:13 INDICATION: Chest pain. Shortness of breath. TECHNIQUE: Computed tomography angiography (CTA) of the chest was performed with 100 mL Omnipaque-350 intravenous contrast timed to evaluate the pulmonary arteries. Coronal maximum intensity projection 3D-reconstructions were created by the technologist. Automated exposure control and iterative reconst ruction technique were employed. The dose-length product was 341.27 mGy-cm. COMPARISON: Chest CT 11/21/2010 FINDINGS: The lungs demonstrate mild atelectasis. There are tree-in-bud opacities in the lower lobes, left worse than right. There is a small left pleural effusion. The heart size is normal. There are c oronary artery calcifications. No pericardial effusion. There is a pulmonary embolus in anterior segm ent left upper lobe. There is a pulmonary embolus in posterobasal segment left lower lobe. There is a pulmonary embolus in anterobasal segment right lower lobe. There are changes of posterior fusion pro cedure in thoracolumbar spine. There is levoscoliosis of thoracic spine. IMPRESSION: 1. Acute pulmonary emboli in the lower lobes and left upper lobe. I called this result to Pricilla terry. 2. Mild pneumonia in the lower lobes, left worse than right. 3. Small left pleural effusion. Reviewed, dictated and finalized at location A. ELING ELECTRICIAN IMPRESSION: 1. Acute pulmonary emboli in the lower lobes and left upper lobe. I called this result to Pricilla Ovalle. 2. Mild pneumonia in the lower lobes, left worse than right. 3. Small left pleural effusion.
--- NOTE | ~2022-11-17 | XR_ITS ---
EXAMINATION: XR barium swallow modified DATE: 11/19/2022 09:28 INDICATION: Dysphagia TECHNIQUE: Modified barium esophagram was performed by myself who administered fluoroscopy, in conju nction with speech pathologist who administered barium in varying consistencies as per speech patholo gist documentation. This was recorded on tape. A single fluoroscopic spot image was recorded. Fluoros copy exposure time was 2.5 minutes. The DAP for this procedure was 3.22 Gycm2. FINDINGS: Oral stage: Reduced lymphocele/extension. Pharyngeal phase: Reduced laryngeal elevation, laryngeal adduction, and tongue base retraction; signi ficant vallecular residue, moderate. Form sinus residue, and moderate pharyngeal wall residue. Laryngeal penetration: Present. Aspiration: Present. Laryngeal sensitivity: Present. IMPRESSION: Abnormal modified barium swallow. Please refer to speech pathologist findings and specifi c feeding recommendations. Reviewed, dictated and finalized at location A. [facility] IMPRESSION: Abnormal modified barium swallow. Please refer to speech pathologis t findings and specific feeding recommendations.
--- NOTE | 2022-11-17 10:28 | ECG_ITS ---
Measurements Intervals [place] Rate: 77 P: 32 WV: 144 QRS: 12 QRSD: 94 T: 57 QT: 362 QTc: 411 Interpretive Statements SINUS RHYTHM BASELINE ARTIFACT- I, II, AVR, V4 NORMAL ECG COMPARED TO ECG 10/24/2022 20:19:21 NO SIGNIFICANT CHANGES Electronically Signed On 11-17-2022 11:07:31 RADIO TELEVISION TECHNICAL DIRECTOR by Ricardo Agosto D.O.
--- NOTE | 2022-11-17 10:32 | ED.SOB ---
HPI - SOB/Dyspnea General Chief Complaint: Shortness of Breath/Dyspnea Stated Complaint: SOB Time Seen by Provider: 11/17/22 10:21 History of Present Illness HPI Narrative: Patient is 82-year-old female sent here from [facility] for evaluation of dyspnea over the past 3 weeks. Patient was diagnosed with flu A upon symptom onset but states that she has felt continually short of breath since. She reports difficulty clearing her secretions, rhinorrhea, and sore throat. Apparently she had some chest pain during PT today at the area of the gait belt but this resolved after taking the gait belt off. Also notes difficulty swallowing. Related Data Home Medications Medication Instructions Recorded Confirmed acetaminophen 325 mg tablet 650 mg PO Q4H PRN Pain 03/05/20 10/25/22 aspirin 81 mg chewable tablet 81 mg PO DAILY 03/05/20 10/25/22 clonazepam 2 mg tablet 2 mg PO HS 03/05/20 10/25/22 quetiapine 25 mg tablet 6.25 mg PO HS 03/05/20 10/25/22 amlodipine 10 mg tablet 10 mg PO DAILY 10/25/22 10/25/22 losartan 50 mg tablet 50 mg PO DAILY 10/25/22 10/25/22 coenzyme Q10 100 mg tablet 100 mg PO DAILY 11/02/22 11/02/22 omega-3 fatty acids 1,000 mg PO DAILY 11/02/22 11/02/22 psyllium husk 0.4 gram capsule 1.3 g PO DAILY 11/02/22 11/02/22 (Fiber (psyllium husk)) Allergies Allergy/AdvReac Type Severity Reaction Status Date / Time hydrochlorothiazide Allergy Unknown Verified 11/17/22 12:58 latex Allergy Unknown Verified 11/17/22 12:58 ramipril Allergy Unknown Verified 11/17/22 12:58 cephalexin [From Keflex] AdvReac Nausea and Verified 11/17/22 12:58 Vomiting lisinopril AdvReac Cough Verified 11/17/22 12:58 tape Allergy Intermediate Other Uncoded 11/17/22 12:58 Review of Systems Review of Systems: Gen.: Denies fevers or chills Eyes: Denies eye pain or visual change ENT: Denies congestion Respiratory: Reports shortness of breath CV: Denies chest pain or palpitations GI: Denies abdominal pain nausea, emesis or diarrhea denies burning, urgency, frequency or hematuria Musculoskeletal: Denies back pain or muscle pain Neuro: Denies numbness, tingling, weakness or focal weakness Skin: Denies rash Except as documented, all other systems reviewed and negative FORMERLY [facility] Past Medical History Medical History Anxiety and depression History of electroconvulsive therapy Hypertension Klonopin use disorder, moderate, in controlled environment, dependence Uncontrolled hypertension Family History Family History Mother Congestive heart failure Hypertension Sibling Prostate carcinoma Sibling Prostate carcinoma Father Brain tumor Sibling Breast cancer Multiple sclerosis Social History Social History Years smoked: 6 Smoking status: Former smoker Second hand tobacco smoke exposure: No Smoking end date: 11/15/1960 Alcohol intake: never Substance use: never Substance use type: does not use Lack of Transportation: No Lack of Food: Never True Current Housing: I Have Housing Concerned About Future Housing: No Difficulty Paying Gas/Electric Bills: No Difficulty Paying for Meds: No Currently Unemployed: No Education: Associate Degree Difficulty w/ Childcare or Family Care: No Spiritual care concerns: No Agree to blood products: Yes Exam Narrative: APPEARANCE: Well appearing, no pain in distress, well-nourished. Head: Normocephalic and atraumatic. EYES: PERRLA/EOMI, conjunctivae clear NOSE: No nasal drainage EARS: External ear normal in appearance THROAT: Oropharynx is clear. Mucous membranes are moist. NECK: Supple. No adenopathy, no masses. RESPIRATORY: Airway patent, respirations nonlabored. Clear to auscultation bilaterally, no rales, rhonchi, wheezing. CARDIOVASCULAR: Regular rate and rhythm without murmurs, ru
[2022-11-17 11:06] LABS: Basophils Percent Auto 0.3 % (0.2-1.2); Eosinophils Absolute Auto 0.1 K/mm3 (0-0.3); Eosinophils Percent Auto 0.8 % (0-4.4); Hematocrit 37.9 % (37.0-47.0); Hemoglobin 12.3 g/dL (12.0-15.0); Immature Granulocyte Absolute 0.03 K/mm3 (0.00-0.031); Immature Granulocyte Percent A 0.3 % (0-0.5); Lymphocytes Absolute Auto 1.01 K/mm3 (0.9-3.2); Lymphocytes Percent Auto 11.3 % (18.3-44.2); Mean Corpuscular HGB Conc 32.5 g/dl (32-36); Mean Corpuscular Hemoglobin 27.8 pg (26-34); Mean Corpuscular Volume 85.7 fl (80-100); Mean Platelet Volume 8.3 fl (7.4-10.4); Monocytes Absolute Auto 0.6 K/mm3 (0.1-0.6); Monocytes Percent Auto 7.1 % (2.6-8.5); Neutrophils Absolute Auto 7.2 K/mm3 (1.3-6.7); Neutrophils Percent Auto 80.2 % (45.5-73.1); Platelet Count Result 361 k/mm3 (150-375); Red Blood Count 4.42 M/mm3 (4.2-5.4); Red Cell Distribution Width 14.2 % (11.5-14.5); White Blood Count 8.9 K/mm3 (4.5-10.0)
[2022-11-17 11:12] LABS: Alanine Aminotransferase 20 U/L (6-35); Alkaline Phosphatase 107 U/L (38-126); Anion Gap 9 mmol/L (8-16); Aspartate Amino Transferase 23 U/L (14-36); Bilirubin,Total 0.6 mg/dL (0.2-1.3); Blood Urea Nitrogen 16 mg/dL (7-17); Calcium 9.4 mg/dL (8.4-10.2); Carbon Dioxide 27 mmol/L (22-30); Chloride 100 mmol/L (98-107); Estimated Glomerular Filt Rate > 60; Glucose 128 mg/dL (65-110); Sodium 136 mmol/L (137-145)
[2022-11-17 11:22] LABS: INR 1.1; Prothrombin Time 13.3 Seconds (11.1-14.7)
[2022-11-17 11:23] LABS: Partial Thromboplastin Time 28.2 SECONDS (22.3-36.8)
[2022-11-17 11:25] LABS: NT Pro B Type Natriuretic Pept 53 pg/mL (5-100); Troponin I < 0.012 ng/mL (0.000-0.034)
[2022-11-17 12:40] LABS: D Dimer 2.32 ug/mL (<0.48)
[2022-11-17 14:22] LABS: INR 1.1; Partial Thromboplastin Time 28.3 SECONDS (22.3-36.8); Prothrombin Time 13.7 Seconds (11.1-14.7)
[2022-11-17] MEDS: ENOXAPARIN 80 MG/0.8 ML SYRINGE SUB-Q (14:25)
--- NOTE | 2022-11-17 15:30 | PM.IMHP ---
H&P: HPI History of Present Illness Date/Time: 11/17/22 15:30 Chief Complaint: Shortness of breath and chest pain. Narrative: This is a pleasant 82-year-old female with history of stroke with residual left-sided weakness, hypertension, anxiety, depression, and remote history of kidney cancer status post right nephrectomy in 2001 who presented to the ED via EMS from [facility] for evaluation of chest pain shortness a breath. She is known to the hospitalist service from a recent admission with weakness due to influenza A, UTI, and hyponatremia. She was discharged to [facility] for rehab and she has been there for a couple of weeks. She does not feel as though she is getting good rehab and tells me that ill me work with her 10 minutes today. More recently she has been complaining of some nondescript chest pain and shortness of breath with activity and she was brought in today for evaluation. Vital signs were stable on arrival. Labs were relatively unremarkable aside from an elevated D-dimer. Subsequent chest CTA showed acute pulmonary emboli in the lower lobes and left upper lobe and also findings of mild pneumonia in the lower lobes and she is being admitted in this setting. She has no prior history of venous thromboembolism. She denies syncope and near-syncope. She has not had a significant exertional chest pain, orthopnea, and she has not noticed lower extremity edema. At the time my evaluation she is resting comfortably in her only complaint is that of some anxiety. Review of Systems Constitutional: Comments: Twelve systems were reviewed and are negative except for as per HPI. FORMERLY [facility], [facility] Past Medical History Medical History (Updated 11/17/22 @ 22:14 by Jane Fatima PA-C) Anxiety and depression Cancer of right kidney Status post nephrectomy in 2001. Hemiparesis of left nondominant side History of electroconvulsive therapy Hypertension Surgical History Surgical History (Updated 11/17/22 @ 21:35 by Jane Fatima PA-C) History of hysterectomy History of right nephrectomy (2001) Partial right nephrectomy for kidney cancer. History of spinal surgery History of tonsillectomy Family History Family History Mother Congestive heart failure Hypertension Sibling Prostate carcinoma Sibling Prostate carcinoma Father Brain tumor Sibling Breast cancer Multiple sclerosis Social History Social History Social History: Surrogate medical decision maker: Marco Del Toro, son. Code status: Full code. Years smoked: 6 Smoking status: Former smoker Second hand tobacco smoke exposure: No Smoking end date: 11/15/1960 Alcohol intake: never Substance use: never Substance use type: does not use Lack of Transportation: No Lack of Food: Never True Current Housing: I Have Housing Concerned About Future Housing: No Difficulty Paying Gas/Electric Bills: No Difficulty Paying for Meds: No Currently Unemployed: No Education: High School Diploma/GED Difficulty w/ Childcare or Family Care: No Additional living arrangements comments: Lives in her own home though currently at rehab. Spiritual care concerns: No Agree to blood products: Yes Meds Home Medications and Allergies Home Medications Medication Instructions Recorded Confirmed Type acetaminophen 325 mg tablet 650 mg PO Q4H PRN Pain 03/05/20 11/17/22 History aspirin 81 mg chewable tablet 81 mg PO DAILY 03/05/20 11/17/22 History clonazepam 2 mg tablet 2 mg PO HS 03/05/20 11/17/22 History quetiapine 25 mg tablet 6.25 mg PO HS 03/05/20 11/17/22 History calcium carbonate 500 mg calcium 400 mg PO Q6H PRN Indigestion #0 03/17/20 11/17/22 Rx (1,250 mg) chewable tablet tabs amlodipine 10 mg tablet 10 mg PO DAILY 10/25/22 11/17/22 History losartan 50 mg tablet 50 mg PO DAILY 10/25/22 11/17/22 History coenzyme
--- NOTE | 2022-11-17 15:30 | PC.NURSE ---
Ordered pt a food tray at [id number]
[2022-11-17 15:44] LABS: Influenza A QL RT-PCR Negative (Negative); Influenza B QL RT-PCR Negative (Negative); SARS-CoV-2 RNA PCR Negative
--- NOTE | 2022-11-17 17:55 | ADMGEN ---
This patient, Susana Gaming, was admitted to [address] [place] [address] Room 325-01. Patient/family oriented to hospital policies and general routines including ID bracelet, bed and alarms, visiting hours, pain management, procedures, bathroom and other care routines, personal items, smoking policy, room service/diet, and visiting hours. Information on how to activate the Rapid Response Team has been discussed. Patient/Family are encouraged to report perceived risks to care and to ask questions if they do not understand what they are told or what they should do.
[2022-11-18 06:00] VITALS: BP 123/70; PULSE 72; RESP 18; TEMP 36.7; O2SAT 94
[2022-11-18 06:21] LABS: Hematocrit 33.9 % (37.0-47.0); Mean Corpuscular HGB Conc 32.4 g/dl (32-36); Mean Corpuscular Hemoglobin 27.6 pg (26-34); Mean Platelet Volume 8.2 fl (7.4-10.4); Platelet Count Result 342 k/mm3 (150-375); Red Blood Count 3.99 M/mm3 (4.2-5.4); White Blood Count 8.3 K/mm3 (4.5-10.0)
[2022-11-18 06:37] LABS: Alanine Aminotransferase 15 U/L (6-35); Albumin Level 3.4 g/dL (3.5-5.1); Alkaline Phosphatase 101 U/L (38-126); Anion Gap 6 mmol/L (8-16); Aspartate Amino Transferase 15 U/L (14-36); Bilirubin,Total 0.6 mg/dL (0.2-1.3); Blood Urea Nitrogen 17 mg/dL (7-17); Calcium 9.3 mg/dL (8.4-10.2); Carbon Dioxide 26 mmol/L (22-30); Chloride 101 mmol/L (98-107); Estimated CRCL calculation 58 ml/min; Estimated Glomerular Filt Rate > 60; Glucose 110 mg/dL (65-110); Potassium 3.7 mmol/L (3.4-5.0); Sodium 133 mmol/L (137-145)
[2022-11-18 08:00] VITALS: O2SAT 94
--- NOTE | 2022-11-18 08:00 | ECHO_ITS ---
Patient Info Name: Susana Gaming Age: 82 years : 1940 Gender: Female Ht: 66 in Wt: 177 lbs BSA: 1.95 m2 HR: 82 bpm BP: 117 / 71 mmHg Heart Rhythm: Sinus Rhythm Technical Quality: Fair Exam Date: 11/18/2022 7:58 AM Exam Location: [facility] Patient Status: Outpatient Admit Date: 11/17/2022 Staff Ordering Physician: Jane Fatima PA-C Research Methodologist: Odette Calderon RDCS Attending Provider: Johana Presley PA-C Referring Physician: Akua RAMIREZ; Exam Type: CA echo doppler color flow Study Info Indications - pe Complete two-dimensional, color flow and Doppler transthoracic echocardiogram is performed. Summary 1. Complete two-dimensional, color flow and Doppler transthoracic echocardiogram is performed. 2. Left ventricular chamber dimension is normal. 3. Left ventricular systolic function is normal, estimated at 60-65%. 4. There is mildly increased left ventricular wall thickness. 5. The left ventricular diastolic function is grade I diastolic dysfunction. 6. Right ventricular chamber dimension is normal. 7. Right ventricular systolic function is normal. 8. There is mild aortic valve regurgitation. 9. There is mild mitral valve regurgitation. 10. There is mild tricuspid valve regurgitation. Left Ventricle Left ventricular chamber dimension is normal. Left ventricular systolic function is normal, estimated at 60-65%. There is mildly increased left ventricular wall thickness. The left ventricular diastolic function is grade I diastolic dysfunction. Right Ventricle Right ventricular chamber dimension is normal. Right ventricular systolic function is normal. Left Atria Left atrial chamber dimension is normal. Right Atria Right atrial chamber dimension is normal. Atrial Septum Intact interatrial septum visualized by color flow imaging. Aortic Valve The aortic valve is not well visualized. There is mild aortic valve sclerosis. There is no aortic valve stenosis. There is mild aortic valve regurgitation. Pulmonic Valve The pulmonic valve is not well visualized. Mitral Valve There is no mitral valve stenosis. There is mild mitral valve regurgitation. Tricuspid Valve The tricuspid valve leaflets are normal. There is mild tricuspid valve regurgitation. Pericardium/Pleural There is no pericardial effusion. Aorta The aortic root size at the sinus of Valsalva is normal. Left Ventricular Outflow Tract Name Value Normal LVOT 2D LVOT Diameter 2.0 cm LVOT Doppler LVOT Peak Gradient 6 mmHg LVOT Mean Gradient 3 mmHg LVOT VTI 25 cm LVOT VTI/AV VTI Ratio 0.7 LVOT Stroke Volume 75 ml LVOT CO 5.3 l/min LVOT CI 2.7 l/min/m2 Pulmonic Valve Name Value Normal
[2022-11-18] MEDS: POTASSIUM CHLORIDE 20 MEQ TABLET.ER PO (10:58)
[2022-11-18] MEDS: ASPIRIN 81 MG CHEWABLE TABLET PO (10:58)
[2022-11-18] MEDS: LOSARTAN POTASSIUM 50 MG TABLET PO (10:58)
[2022-11-18] MEDS: amLODIPine BESYLATE 5 MG TABLET 10 MG PO (10:58)
[2022-11-18] MEDS: OMEGA 3 POLYUNSAT FATTY ACIDS 1 GM CAP PO (10:58)
[2022-11-18] MEDS: ENOXAPARIN 80 MG/0.8 ML SYRINGE SUB-Q ×2 (10:59→21:14)
--- NOTE | 2022-11-18 13:11 | PM.IMPN ---
Progress Note: A&P Assessment and Plan (1) Bilateral pulmonary embolism: Code(s): I26.99 - Other pulmonary embolism without acute cor pulmonale Status: Acute Assessment and Plan: -presented for cp/sob -CTA shows bilateral pulmonary emboli -echo pending though CTA did not show any right heart strain -started on Lovenox 1 milligram/kilogram b.i.d. -currently on 1L NC w/ oxygen saturations in the high 90s -will discuss w/ care coordination xaralto vs elijacquelinis, see if there is preference with insurance prior to switching to oral anti coagulation (2) DVT (deep venous thrombosis): Code(s): I82.409 - Acute embolism and thrombosis of unspecified deep veins of unspecified lower extremity Status: Acute Assessment and Plan: -L popliteal, peroneal, posterior tibial -on anticoagulation as noted above (3) Dysphagia: Code(s): R13.10 - Dysphagia, unspecified Status: Acute Assessment and Plan: -ST bedside swallow eval ordered (4) Anxiety: Code(s): F41.9 - Anxiety disorder, unspecified Status: Acute Assessment and Plan: -continue clonazepam and Seroquel QHS (5) Hypertension: Code(s): I10 - Essential (primary) hypertension Status: Chronic Assessment and Plan: -continue home meds, stable (6) Pneumonia: Code(s): J18.9 - Pneumonia, unspecified organism Status: Acute Assessment and Plan: -Chest CT shows findings of mild pneumonia though clinically she does not seem to have an active respiratory infection. More likely residual findings of viral pneumonia from her recent influenza A infection. -continue to monitor, consider starting abx if begins showing signs/symptoms of acute infection. Subjective Date/time seen: 11/18/22 13:11 Interval history: 82-year-old female with history of stroke with residual left-sided weakness, hypertension, anxiety, depression, and remote history of kidney cancer status post right nephrectomy in 2001 who is admitted w/ acute bilateral PE. She reports some mild sob and is currently on 1L NC. No chest pain. Overall feels anxious and sad due to being hospitalized. Also reporting difficulty swallowing for a few weeks now with intermittent nausea. No vomiting or abd pain. Review of Systems Review of Systems: All systems reviewed & are unremarkable except as noted in HPI and below Exam Narrative: General: Nontoxic-appearing female sitting up in bed. Weight: 80.6 kilograms. BMI: 20.7. HEENT: Normocephalic, atraumatic. PERRL, EOMI. Sclera anicteric. Moist mucous membranes. Neck: Supple. No JVD. Respiratory: No acute respiratory distress. She is speaking in full sentences. Lungs are clear to auscultation. Cardiovascular: Regular rate and rhythm with S1-S2. Gastrointestinal: Abdomen is soft, nontender, and nondistended with positive bowel sounds. Skin: Warm and dry. No rash or lesions on limited exam. Extremities: Mild BLE edema. Neurological: Alert. Cranial nerves 2-12 are grossly intact. Generalized weakness, chronic mild left-sided weakness. Psychiatric: Pleasant and cooperative. Appropriate mood. Slightly anxious. Objective Data Vital Signs Vital Signs: Vital Signs - 24 hr 11/17/22 13:52 11/17/22 13:52 11/17/22 13:56 Temperature Pulse Rate 78 95 Respiratory Rate 19 Blood Pressure 148/78 H Pulse Oximetry 95 96 Oxygen Delivery Room Air 11/17/22 13:54 11/17/22 14:27 11/17/22 17:08 Temperature Pulse Rate 79 75 82 Respiratory Rate 21 H 19 20 Blood Pressure 148/78 H 138/69 116/68 Pulse Oximetry 94 95 96 Oxygen Delivery 11/17/22 15:00 11/17/22 16:00 11/17/22 16:15 Temperature Pulse Rate 81 76 74 Respiratory Rate 22 H 21 H 18 Blood Pressure 147/72 H 120/67 Pulse Oximetry 96 95 96 Oxygen Delivery 11/17/22 17:55 11/17/22 20:00 11/17/22 22:00 Temperature 97.6 F Pulse Rate 82 Respiratory R
[2022-11-18 14:00] VITALS: BP 129/55; PULSE 71; RESP 18; TEMP 36.5; O2SAT 96
--- NOTE | 2022-11-18 14:28 | PCSTNOTE ---
Please refer to the Bedside Swallow Evaluation in the EMR. Please note, silent aspiration cannot be ruled out at bedside.
[2022-11-18] MEDS: clonazePAM (*CRX) 0.5 MG TABLET 2 MG PO (21:14)
[2022-11-18 22:00] VITALS: BP 138/66; PULSE 74; RESP 18; TEMP 37.3; O2SAT 94
[2022-11-19 05:32] VITALS: BP 141/75; PULSE 75; RESP 18; TEMP 36.6; O2SAT 94
[2022-11-19 07:00] LABS: Basophils Percent Auto 0.5 % (0.2-1.2); Eosinophils Absolute Auto 0.1 K/mm3 (0-0.3); Eosinophils Percent Auto 2.3 % (0-4.4); Hematocrit 34.6 % (37.0-47.0); Hemoglobin 11.2 g/dL (12.0-15.0); Immature Granulocyte Absolute 0.03 K/mm3 (0.00-0.031); Immature Granulocyte Percent A 0.5 % (0-0.5); Lymphocytes Absolute Auto 1.09 K/mm3 (0.9-3.2); Mean Corpuscular HGB Conc 32.4 g/dl (32-36); Mean Corpuscular Hemoglobin 27.9 pg (26-34); Mean Corpuscular Volume 86.3 fl (80-100); Mean Platelet Volume 8.2 fl (7.4-10.4); Monocytes Absolute Auto 0.5 K/mm3 (0.1-0.6); Monocytes Percent Auto 8.8 % (2.6-8.5); Neutrophils Absolute Auto 4.2 K/mm3 (1.3-6.7); Neutrophils Percent Auto 69.9 % (45.5-73.1); Platelet Count Result 351 k/mm3 (150-375); Red Blood Count 4.01 M/mm3 (4.2-5.4)
[2022-11-19 07:14] LABS: Anion Gap 5 mmol/L (8-16); Blood Urea Nitrogen 14 mg/dL (7-17); Calcium 9.1 mg/dL (8.4-10.2); Carbon Dioxide 27 mmol/L (22-30); Chloride 98 mmol/L (98-107); Estimated CRCL calculation 80 ml/min; Estimated Glomerular Filt Rate > 60; Glucose 107 mg/dL (65-110); Potassium 3.5 mmol/L (3.4-5.0); Sodium 130 mmol/L (137-145)
--- NOTE | 2022-11-19 08:35 | PM.IMPN ---
Progress Note: A&P Assessment and Plan (1) Bilateral pulmonary embolism: Code(s): I26.99 - Other pulmonary embolism without acute cor pulmonale Status: Acute Assessment and Plan: -presented for cp/sob -CTA shows bilateral pulmonary emboli also has some pneumonia -echo with EF 60-65%, non significant valvular abnormality, grade I diastolic dysfunction -started on Lovenox 1 milligram/kilogram b.i.d. -currently on 1L NC w/ oxygen saturations in the high 90s. currenlty off oxygen. -cc for xarelto vs eliquis. (2) DVT (deep venous thrombosis): Code(s): I82.409 - Acute embolism and thrombosis of unspecified deep veins of unspecified lower extremity Status: Acute Assessment and Plan: -L popliteal, peroneal, posterior tibial -on anticoagulation as noted above (3) Dysphagia: Code(s): R13.10 - Dysphagia, unspecified Status: Acute Assessment and Plan: -ST bedside swallow eval ordered barium swallow planned (4) Anxiety: Code(s): F41.9 - Anxiety disorder, unspecified Status: Acute Assessment and Plan: -continue clonazepam and Seroquel QHS (5) Hypertension: Code(s): I10 - Essential (primary) hypertension Status: Chronic Assessment and Plan: -continue home meds, stable (6) Pneumonia: Code(s): J18.9 - Pneumonia, unspecified organism Status: Acute Assessment and Plan: -Chest CT shows findings of mild pneumonia though clinically she does not seem to have an active respiratory infection. More likely residual findings of viral pneumonia from her recent influenza A infection. -continue to monitor, consider starting abx if begins showing signs/symptoms of acute infection. Subjective Date/time seen: 11/19/22 08:35 Interval history: 82-year-old female with history of stroke with residual left-sided weakness, hypertension, anxiety, depression, and remote history of kidney cancer status post right nephrectomy in 2001 who is admitted w/ acute bilateral PE. patient reports she is having swallowing diffuculty. otherwise no overnght events. she has some sob, off oxygen this am. no fever, chlls. Review of Systems Review of Systems: All systems reviewed & are unremarkable except as noted in HPI and below Exam Narrative: General: Nontoxic-appearing female laying in bed; weak voice HEENT: Normocephalic, atraumatic. PERRL, EOMI. Sclera anicteric. Moist mucous membranes. Neck: Supple. No JVD. Respiratory: No acute respiratory distress. She is speaking in full sentences. Lungs are clear to auscultation. Cardiovascular: Regular rate and rhythm with S1-S2. Gastrointestinal: Abdomen is soft, nontender, and nondistended with positive bowel sounds. Skin: Warm and dry. No rash or lesions on limited exam. Extremities: trace edema bilaterally Neurological: Alert. Cranial nerves 2-12 are grossly intact. Generalized weakness, chronic mild left-sided weakness. Psychiatric: Pleasant and cooperative. Appropriate mood. Slightly anxious. Objective Data Vital Signs Vital Signs: Vital Signs - 24 hr 11/18/22 14:00 11/18/22 15:44 11/18/22 22:00 Temperature 97.7 F 99.2 F Pulse Rate 71 74 Respiratory Rate 18 18 Blood Pressure 129/55 L 138/66 Pulse Oximetry 96 94 Oxygen Delivery Room Air 11/18/22 20:00 11/19/22 05:32 Temperature 97.8 F Pulse Rate 75 Respiratory Rate 18 Blood Pressure 141/75 H Pulse Oximetry 94 Oxygen Delivery Room Air Intake/Output Intake/Output: Intake & Output 11/16/22 11/17/22 11/18/22 11/19/22 23:59 23:59 23:59 23:59 Intake Total 940 250 Output Total 1000 925 975 Balance -1000 15 -694 Meds/Results Medications: Active Medications Generic Name Dose Route Start Last Admin Trade Name Freq PRN Reason Stop Dose Admin Acetaminophen 650 mg 11/18/22 08:03 Acetaminophen 325 Mg Tablet PO Q4H PRN Pain Amlodipine
[2022-11-19] MEDS: amLODIPine BESYLATE 5 MG TABLET 10 MG PO (08:46)
[2022-11-19] MEDS: POTASSIUM CHLORIDE 20 MEQ TABLET.ER PO (08:46)
[2022-11-19] MEDS: ASPIRIN 81 MG CHEWABLE TABLET PO (08:46)
[2022-11-19] MEDS: OMEGA 3 POLYUNSAT FATTY ACIDS 1 GM CAP PO (08:46)
[2022-11-19] MEDS: ENOXAPARIN 80 MG/0.8 ML SYRINGE SUB-Q ×2 (08:47→21:39)
[2022-11-19] MEDS: LOSARTAN POTASSIUM 50 MG TABLET PO (08:47)
[2022-11-19 14:00] VITALS: BP 142/68; PULSE 64; RESP 16; TEMP 36.7; O2SAT 94
--- NOTE | 2022-11-19 16:41 | PCRCNOTE ---
NO CPAP PER FAMILY
[2022-11-19] MEDS: DEXTROSE 5%/0.45% SOD CHL 1,000 ML 50 ML IV CONT (17:54)
[2022-11-19 22:00] VITALS: BP 152/73; PULSE 76; RESP 18; TEMP 36.8; O2SAT 94
[2022-11-20] VITALS (7 sets, daily range): BP systolic 120–153; BP diastolic 53–68; PULSE 68–79; RESP 16–20; TEMP 36.4–36.8; O2SAT 94–99; BMI 28.6
[2022-11-20] MEDS: LORazepam INJ (*CRX) 2 MG/ML VIAL 0.5 MG IV PUSH (01:04)
[2022-11-20 07:24] LABS: Basophils Percent Auto 0.4 % (0.2-1.2); Eosinophils Absolute Auto 0.1 K/mm3 (0-0.3); Hematocrit 32.7 % (37.0-47.0); Hemoglobin 10.9 g/dL (12.0-15.0); Immature Granulocyte Absolute 0.03 K/mm3 (0.00-0.031); Immature Granulocyte Percent A 0.4 % (0-0.5); Lymphocytes Absolute Auto 1.19 K/mm3 (0.9-3.2); Lymphocytes Percent Auto 17.8 % (18.3-44.2); Mean Corpuscular HGB Conc 33.3 g/dl (32-36); Mean Corpuscular Hemoglobin 27.6 pg (26-34); Mean Corpuscular Volume 82.8 fl (80-100); Mean Platelet Volume 8.2 fl (7.4-10.4); Monocytes Absolute Auto 0.6 K/mm3 (0.1-0.6); Monocytes Percent Auto 8.8 % (2.6-8.5); Neutrophils Absolute Auto 4.8 K/mm3 (1.3-6.7); Neutrophils Percent Auto 71.6 % (45.5-73.1); Platelet Count Result 371 k/mm3 (150-375); Red Blood Count 3.95 M/mm3 (4.2-5.4); Red Cell Distribution Width 13.6 % (11.5-14.5); White Blood Count 6.7 K/mm3 (4.5-10.0)
[2022-11-20 07:36] LABS: Alanine Aminotransferase 17 U/L (6-35); Albumin Level 3.3 g/dL (3.5-5.1); Alkaline Phosphatase 100 U/L (38-126); Anion Gap 3 mmol/L (8-16); Aspartate Amino Transferase 19 U/L (14-36); Bilirubin,Total 0.5 mg/dL (0.2-1.3); Blood Urea Nitrogen 14 mg/dL (7-17); Calcium 9.1 mg/dL (8.4-10.2); Carbon Dioxide 27 mmol/L (22-30); Chloride 98 mmol/L (98-107); Estimated CRCL calculation 67 ml/min; Estimated Glomerular Filt Rate > 60; Glucose 115 mg/dL (65-110); Magnesium 1.9 mg/dL (1.6-2.3); Potassium 3.5 mmol/L (3.4-5.0); Sodium 128 mmol/L (137-145)
[2022-11-20] MEDS: ENOXAPARIN 80 MG/0.8 ML SYRINGE SUB-Q ×2 (09:02→20:53)
[2022-11-20] MEDS: DEXTROSE 5%/0.9% SOD CHL 1,000 ML 100 ML IV CONT (14:38)
--- NOTE | 2022-11-20 17:40 | PM.IMPN ---
Progress Note: A&P Assessment and Plan (1) Bilateral pulmonary embolism: Code(s): I26.99 - Other pulmonary embolism without acute cor pulmonale Status: Acute Assessment and Plan: -presented for cp/sob -CTA shows bilateral pulmonary emboli also has some pneumonia -echo with EF 60-65%, non significant valvular abnormality, grade I diastolic dysfunction -started on Lovenox 1 milligram/kilogram b.i.d. -currently on 1L NC w/ oxygen saturations in the high 90s. currenlty off oxygen. -cc for xarelto vs eliquis. 11/20/2021 interval history: patient with bilateral pulmonary emboli being treated with Lovenox 80 mg b.i.d., also has dysphagia had a modified swallow study and failed, speech therapy recommending NPO, discussed with the patient's son and consent to NG tube and G-tube feeding until patient is able to swallow will have ST continue to work with the patient and further recommendation to follow. (2) DVT (deep venous thrombosis): Code(s): I82.409 - Acute embolism and thrombosis of unspecified deep veins of unspecified lower extremity Status: Acute Assessment and Plan: -L popliteal, peroneal, posterior tibial -on anticoagulation as noted above (3) Dysphagia: Code(s): R13.10 - Dysphagia, unspecified Status: Acute Assessment and Plan: -ST bedside swallow eval ordered barium swallow planned (4) Anxiety: Code(s): F41.9 - Anxiety disorder, unspecified Status: Acute Assessment and Plan: -continue clonazepam and Seroquel QHS (5) Hypertension: Code(s): I10 - Essential (primary) hypertension Status: Chronic Assessment and Plan: -continue home meds, stable (6) Pneumonia: Code(s): J18.9 - Pneumonia, unspecified organism Status: Acute Assessment and Plan: -Chest CT shows findings of mild pneumonia though clinically she does not seem to have an active respiratory infection. More likely residual findings of viral pneumonia from her recent influenza A infection. -continue to monitor, consider starting abx if begins showing signs/symptoms of acute infection. Subjective Date/time seen: 11/20/22 17:40 Interval history: 82-year-old female with history of stroke with residual left-sided weakness, hypertension, anxiety, depression, and remote history of kidney cancer status post right nephrectomy in 2001 who is admitted w/ acute bilateral PE. patient reports she is having swallowing diffuculty. otherwise no overnght events. she has some sob, off oxygen this am. no fever, chlls. 11/20/2021 interval history: patient with bilateral pulmonary emboli being treated with Lovenox 80 mg b.i.d., also has dysphagia had a modified swallow study and failed, speech therapy recommending NPO, discussed with the patient's son and consent to NG tube and G-tube feeding until patient is able to swallow will have ST continue to work with the patient and further recommendation to follow. Review of Systems Review of Systems: All systems reviewed & are unremarkable except as noted in HPI and below Exam Narrative: Patient is comfortable, NAD HEENT: eyes are clear and none icteric LUNGS: normal respiratory effort ABD: distended Lower extremities: no edema SKIN: nonjaundiced Neuro: grossly intact. Objective Data Vital Signs Vital Signs: Vital Signs - 24 hr 11/19/22 22:00 11/19/22 20:00 11/20/22 01:20 Temperature 98.3 F Pulse Rate 76 Respiratory Rate 18 Blood Pressure 152/73 H Pulse Oximetry 94 94 Oxygen Delivery Room Air Nasal Cannula Oxygen Flow Rate 2 11/20/22 05:07 11/20/22 06:00 11/20/22 08:30 Temperature 98 F Pulse Rate 79 79 Respiratory Rate 16 16 Blood Pressure 127/68 Pulse Oximetry 95 95 95 Oxygen Delivery Nasal Cannula Nasal Cannula Oxygen Flow Rate 5 4 11/20/22 14:00 Temperature 98.2 F Pulse Rate 74 Respiratory Rate 20 Blood Pressure 153/67 H Pulse Ox
--- NOTE | 2022-11-20 18:02 | PC.NURSE ---
second call to dietary for tube feeding
--- NOTE | 2022-11-20 18:30 | PC.NURSE ---
no need for restraints this shift, pt is very compliant with NG tube, educated at length on NG and TF
[2022-11-20] MEDS: clonazePAM (*CRX) 0.5 MG TABLET 2 MG PO (20:52)
[2022-11-20] MEDS: ACETAMINOPHEN 325 MG TABLET 650 MG PO (20:53)
[2022-11-21] MEDS: DEXTROSE 5%/0.9% SOD CHL 1,000 ML 100 ML IV CONT ×3 (00:36→23:43)
[2022-11-21 05:24] VITALS: BP 139/65; PULSE 69; RESP 18; TEMP 36.2; O2SAT 100
[2022-11-21 07:59] VITALS: PULSE 69; RESP 18; O2SAT 100
[2022-11-21 10:03] LABS: Hematocrit 32.8 % (37.0-47.0); Hemoglobin 10.4 g/dL (12.0-15.0); Mean Corpuscular HGB Conc 31.7 g/dl (32-36); Mean Corpuscular Hemoglobin 27.9 pg (26-34); Mean Corpuscular Volume 87.9 fl (80-100); Mean Platelet Volume 8.1 fl (7.4-10.4); Platelet Count Result 355 k/mm3 (150-375); Red Blood Count 3.73 M/mm3 (4.2-5.4); White Blood Count 6.4 K/mm3 (4.5-10.0)
[2022-11-21] MEDS: amLODIPine BESYLATE 5 MG TABLET 10 MG PO (10:16)
[2022-11-21] MEDS: ASPIRIN 81 MG CHEWABLE TABLET PO (10:16)
[2022-11-21] MEDS: POTASSIUM CHLORIDE 20 MEQ PACKET (FOR LIQUID) PO (10:16)
[2022-11-21] MEDS: ARTIFICIAL TEARS OPHTH SOLN 15 ML BOTTLE 1 DROP LEFT EYE (10:17)
[2022-11-21] MEDS: LOSARTAN POTASSIUM 50 MG TABLET PO (10:17)
[2022-11-21] MEDS: ENOXAPARIN 80 MG/0.8 ML SYRINGE SUB-Q ×2 (10:17→20:26)
[2022-11-21 10:51] LABS: Alanine Aminotransferase 25 U/L (6-35); Albumin Level 3.1 g/dL (3.5-5.1); Alkaline Phosphatase 81 U/L (38-126); Anion Gap 3 mmol/L (8-16); Aspartate Amino Transferase 26 U/L (14-36); Bilirubin,Total 0.2 mg/dL (0.2-1.3); Blood Urea Nitrogen 16 mg/dL (7-17); Calcium 8.6 mg/dL (8.4-10.2); Carbon Dioxide 29 mmol/L (22-30); Chloride 105 mmol/L (98-107); Estimated CRCL calculation 68 ml/min; Estimated Glomerular Filt Rate > 60; Glucose 124 mg/dL (65-110); Magnesium 1.9 mg/dL (1.6-2.3); Potassium 3.6 mmol/L (3.4-5.0); Sodium 137 mmol/L (137-145)
--- NOTE | 2022-11-21 12:42 | PM.IMPN ---
Progress Note: A&P Assessment and Plan (1) Bilateral pulmonary embolism: Code(s): I26.99 - Other pulmonary embolism without acute cor pulmonale Status: Acute Assessment and Plan: -presented for cp/sob -CTA shows bilateral pulmonary emboli also has some pneumonia -echo with EF 60-65%, non significant valvular abnormality, grade I diastolic dysfunction -started on Lovenox 1 milligram/kilogram b.i.d. -currently on 1L NC w/ oxygen saturations in the high 90s. currenlty off oxygen. -cc for xarelto vs eliquis. 11/21/2021 interval history: patient with bilateral pulmonary emboli being treated with Lovenox 80 mg b.i.d., also has dysphagia had a modified swallow study on 11/19 and failed, speech therapy recommending NPO, on 11/20 discussed with the patient's son and consent to NG tube and G-tube feeding until patient is able to swallow, today patient is tolerating G-tube feeding, will have ST continue to work with the patient and further recommendation to follow. (2) DVT (deep venous thrombosis): Code(s): I82.409 - Acute embolism and thrombosis of unspecified deep veins of unspecified lower extremity Status: Acute Assessment and Plan: -L popliteal, peroneal, posterior tibial -on anticoagulation as noted above (3) Dysphagia: Code(s): R13.10 - Dysphagia, unspecified Status: Acute Assessment and Plan: -ST bedside swallow eval ordered barium swallow planned (4) Anxiety: Code(s): F41.9 - Anxiety disorder, unspecified Status: Acute Assessment and Plan: -continue clonazepam and Seroquel QHS (5) Hypertension: Code(s): I10 - Essential (primary) hypertension Status: Chronic Assessment and Plan: -continue home meds, stable (6) Pneumonia: Code(s): J18.9 - Pneumonia, unspecified organism Status: Acute Assessment and Plan: -Chest CT shows findings of mild pneumonia though clinically she does not seem to have an active respiratory infection. More likely residual findings of viral pneumonia from her recent influenza A infection. -continue to monitor, consider starting abx if begins showing signs/symptoms of acute infection. Subjective Date/time seen: 11/21/22 12:42 Interval history: 82-year-old female with history of stroke with residual left-sided weakness, hypertension, anxiety, depression, and remote history of kidney cancer status post right nephrectomy in 2001 who is admitted w/ acute bilateral PE. patient reports she is having swallowing diffuculty. otherwise no overnght events. she has some sob, off oxygen this am. no fever, chlls. 11/21/2021 interval history: patient with bilateral pulmonary emboli being treated with Lovenox 80 mg b.i.d., also has dysphagia had a modified swallow study on 11/19 and failed, speech therapy recommending NPO, on 11/20 discussed with the patient's son and consent to NG tube and G-tube feeding until patient is able to swallow, today patient is tolerating G-tube feeding, will have ST continue to work with the patient and further recommendation to follow. Review of Systems Review of Systems: All systems reviewed & are unremarkable except as noted in HPI and below Exam Narrative: Patient is comfortable, NAD HEENT: eyes are clear and none icteric LUNGS: normal respiratory effort ABD: distended Lower extremities: no edema SKIN: nonjaundiced Neuro: grossly intact. Objective Data Vital Signs Vital Signs: Vital Signs - 24 hr 11/20/22 14:00 11/20/22 21:32 11/20/22 20:00 Temperature 98.2 F 97.5 F L Pulse Rate 74 68 Respiratory Rate 20 20 Blood Pressure 153/67 H 120/53 L Pulse Oximetry 98 99 99 Oxygen Delivery Nasal Cannula Oxygen Flow Rate 5 11/21/22 05:24 11/21/22 07:59 Temperature 97.2 F L Pulse Rate 69 69 Respiratory Rate 18 18 Blood Pressure 139/65 Pulse Oximetry 100 100 Oxygen Delivery Nasal Cannula Oxygen Flow Rate 4
[2022-11-21 14:00] VITALS: BP 143/64; PULSE 63; RESP 20; TEMP 36.4; O2SAT 98
[2022-11-21 15:37] VITALS: BMI 10.0
[2022-11-21] MEDS: ACETAMINOPHEN 325 MG TABLET 650 MG PO (16:37)
[2022-11-21] MEDS: ALPRAZolam (*CRX) 0.5 MG TABLET PO (16:37)
[2022-11-21] MEDS: clonazePAM (*CRX) 0.5 MG TABLET 2 MG PO (20:28)
[2022-11-21] MEDS: LORazepam INJ (*CRX) 2 MG/ML VIAL 0.5 MG IV PUSH (20:49)
[2022-11-21 22:00] VITALS: BP 172/67; PULSE 72; RESP 18; TEMP 36.1; O2SAT 99
--- NOTE | 2022-11-22 04:33 | PC.NURSE ---
Pt. pulled out NG tube at 0300 on 11/22/22 and is refusing a new one.
[2022-11-22 06:00] VITALS: BP 154/72; PULSE 65; RESP 18; TEMP 36; O2SAT 100
[2022-11-22] MEDS: LORazepam INJ (*CRX) 2 MG/ML VIAL 0.5 MG IV PUSH ×3 (06:50→22:41)
[2022-11-22] MEDS: ENOXAPARIN 80 MG/0.8 ML SYRINGE SUB-Q ×2 (08:23→20:56)
[2022-11-22] MEDS: DEXTROSE 5%/0.9% SOD CHL 1,000 ML 100 ML IV CONT ×2 (09:43→20:57)
--- NOTE | 2022-11-22 13:58 | PM.IMPN ---
Progress Note: A&P Assessment and Plan (1) Bilateral pulmonary embolism: Code(s): I26.99 - Other pulmonary embolism without acute cor pulmonale Status: Acute Assessment and Plan: -presented for cp/sob -CTA shows bilateral pulmonary emboli also has some pneumonia -echo with EF 60-65%, non significant valvular abnormality, grade I diastolic dysfunction -started on Lovenox 1 milligram/kilogram b.i.d. -currently on 1L NC w/ oxygen saturations in the high 90s. currenlty off oxygen. -cc for xarelto vs eliquis. 11/22/2021 interval history: patient with bilateral pulmonary emboli being treated with Lovenox 80 mg b.i.d., also has dysphagia had a modified swallow study on 11/19 and failed, speech therapy recommended NPO, on 11/20 discussed with the patient's son and consent to NG tube and G-tube feeding until patient is able to swallow, on 11/21 patient was tolerating G-tube feeding however patient pulled out her NG tube last night, today discussed patient son and daughter both are in agreement for PEG, will consult GI, will have ST continue to work with the patient and further recommendation to follow. (2) DVT (deep venous thrombosis): Code(s): I82.409 - Acute embolism and thrombosis of unspecified deep veins of unspecified lower extremity Status: Acute Assessment and Plan: -L popliteal, peroneal, posterior tibial -on anticoagulation as noted above (3) Dysphagia: Code(s): R13.10 - Dysphagia, unspecified Status: Acute Assessment and Plan: -ST bedside swallow eval ordered barium swallow planned (4) Anxiety: Code(s): F41.9 - Anxiety disorder, unspecified Status: Acute Assessment and Plan: -continue clonazepam and Seroquel QHS (5) Hypertension: Code(s): I10 - Essential (primary) hypertension Status: Chronic Assessment and Plan: -continue home meds, stable (6) Pneumonia: Code(s): J18.9 - Pneumonia, unspecified organism Status: Acute Assessment and Plan: -Chest CT shows findings of mild pneumonia though clinically she does not seem to have an active respiratory infection. More likely residual findings of viral pneumonia from her recent influenza A infection. -continue to monitor, consider starting abx if begins showing signs/symptoms of acute infection. Subjective Date/time seen: 11/22/22 13:58 Interval history: 82-year-old female with history of stroke with residual left-sided weakness, hypertension, anxiety, depression, and remote history of kidney cancer status post right nephrectomy in 2001 who is admitted w/ acute bilateral PE. patient reports she is having swallowing diffuculty. otherwise no overnght events. she has some sob, off oxygen this am. no fever, chlls. 11/22/2021 interval history: patient with bilateral pulmonary emboli being treated with Lovenox 80 mg b.i.d., also has dysphagia had a modified swallow study on 11/19 and failed, speech therapy recommended NPO, on 11/20 discussed with the patient's son and consent to NG tube and G-tube feeding until patient is able to swallow, on 11/21 patient was tolerating G-tube feeding however patient pulled out her NG tube last night, today discussed patient son and daughter both are in agreement for PEG, will consult GI, will have ST continue to work with the patient and further recommendation to follow. Review of Systems Review of Systems: All systems reviewed & are unremarkable except as noted in HPI and below Exam Narrative: Patient is comfortable, NAD HEENT: eyes are clear and none icteric LUNGS: normal respiratory effort ABD: distended Lower extremities: no edema SKIN: nonjaundiced Neuro: grossly intact. Objective Data Vital Signs Vital Signs: Vital Signs - 24 hr 11/21/22 14:00 11/21/22 22:00 11/22/22 06:00 Temperature 97.6 F 96.9 F L 96.8 F L Pulse Rate 63 72 65 Respiratory Rate 20 18 18 Blood Pressure 143/64 H 172/
[2022-11-22 14:32] VITALS: BP 142/59; PULSE 69; RESP 16; TEMP 36.2; O2SAT 98
[2022-11-22 14:45] VITALS: RESP 16; O2SAT 98
[2022-11-22 15:00] VITALS: O2SAT 95
[2022-11-22] MEDS: FLUTICASONE PROPIONATE 0.05% NA SPR 16 GM BTL (*BKC) 1 SPRAY NASAL (20:56)
[2022-11-23] MEDS: LORazepam INJ (*CRX) 2 MG/ML VIAL 0.5 MG IV PUSH ×3 (05:09→21:42)
[2022-11-23 06:00] VITALS: BP 154/67; PULSE 73; RESP 16; TEMP 35.8; O2SAT 95
[2022-11-23 06:39] LABS: Hematocrit 33.8 % (37.0-47.0); Hemoglobin 10.8 g/dL (12.0-15.0); Mean Corpuscular Hemoglobin 27.2 pg (26-34); Mean Corpuscular Volume 85.1 fl (80-100); Mean Platelet Volume 8.1 fl (7.4-10.4); Platelet Count Result 357 k/mm3 (150-375); Red Blood Count 3.97 M/mm3 (4.2-5.4); Red Cell Distribution Width 13.8 % (11.5-14.5); White Blood Count 8.1 K/mm3 (4.5-10.0)
[2022-11-23 06:41] LABS: Potassium 3.2 mmol/L (3.4-5.0)
[2022-11-23 06:45] LABS: Anion Gap 3 mmol/L (8-16); Blood Urea Nitrogen 10 mg/dL (7-17); Calcium 8.6 mg/dL (8.4-10.2); Carbon Dioxide 27 mmol/L (22-30); Chloride 104 mmol/L (98-107); Estimated CRCL calculation 80 ml/min; Estimated Glomerular Filt Rate > 60; Glucose 117 mg/dL (65-110); Magnesium 1.8 mg/dL (1.6-2.3); Sodium 134 mmol/L (137-145)
[2022-11-23 08:45] VITALS: O2SAT 95
[2022-11-23] MEDS: POTASSIUM CHLORIDE INJ 40 MEQ in SODIUM CHLORIDE 0.9% IV 500 ML 130 MEQ IVPB (09:09)
[2022-11-23] MEDS: DEXTROSE 5%/0.9% SOD CHL 1,000 ML 100 ML IV CONT ×2 (09:10→21:36)
[2022-11-23] MEDS: FLUTICASONE PROPIONATE 0.05% NA SPR 16 GM BTL (*BKC) 1 SPRAY NASAL (09:11)
[2022-11-23] MEDS: ENOXAPARIN 80 MG/0.8 ML SYRINGE SUB-Q ×2 (09:11→21:53)
--- NOTE | 2022-11-23 13:49 | PCRCNOTE ---
Pt. states she has not worn cpap in 6 months due to limitations from her stroke.
[2022-11-23 14:00] VITALS: BP 161/80; PULSE 77; RESP 20; TEMP 36.4; O2SAT 100
--- NOTE | 2022-11-23 14:14 | WPDGICN ---
Assessment and Plan Assessment and plan (1) Dysphagia: Code(s): R13.10 - Dysphagia, unspecified Status: Acute Assessment and Plan: probably related to previous stroke evaluated by speech therapy and found to be high risk for aspiration will proceed with g-tube placement, hold lovenox injection tomorrow (2) Bilateral pulmonary embolism: Code(s): I26.99 - Other pulmonary embolism without acute cor pulmonale Status: Acute Assessment and Plan: on anticoagulation, by primary (3) Pneumonia: Code(s): J18.9 - Pneumonia, unspecified organism Status: Acute Assessment and Plan: treated (4) Debility: Code(s): R53.81 - Other malaise Status: Acute GI Consult Note Consult date/time: 11/23/22 14:14 Reason for consult: dysphagia HPI: Susana Gaming is a 82 year old female with history of stroke with residual left-sided weakness, hypertension, anxiety, depression, and remote history of kidney cancer status post right nephrectomy in 2001 who presented to the ED via EMS from [facility] for evaluation of chest pain shortness a breath. Previously she was in the hospital with weakness due to influenza A, UTI, and hyponatremia. Labs showed elevated D-dimer which prompted CTA showed acute pulmonary emboli in the lower lobes and left upper lobe and also findings of mild pneumonia in the lower lobes. Also report of cough after eating, speech therapy evaluation that found she was having episode of aspiration, NGT was placed but she pulled it out. Primary talked to family and agreeable to have G-tube placement for feeding. Patient is awake and alert, oriented but gets distracted. She understands risk of aspiration and also ok to have G-tube placement. Review of Systems Review of Systems: Gen.: Denies fevers or chills Eyes: Denies eye pain or visual change ENT: Denies congestion Respiratory: Reports shortness of breath CV: Denies chest pain or palpitations GI: Denies abdominal pain nausea, emesis or diarrhea denies burning, urgency, frequency or hematuria Musculoskeletal: Denies back pain or muscle pain Neuro: leg weakness, history of stroke Skin: Denies rash PMFSH Past Medical History Medical History (Updated 11/18/22 @ 13:21 by Johana Presley PA-C) Anxiety and depression Cancer of right kidney Status post nephrectomy in 2001. Hemiparesis of left nondominant side History of electroconvulsive therapy Hypertension Surgical History Surgical History (Updated 11/17/22 @ 21:35 by Jane Fatima PA-C) History of hysterectomy History of right nephrectomy (2001) Partial right nephrectomy for kidney cancer. History of spinal surgery History of tonsillectomy Family History Family History Mother Congestive heart failure Hypertension Sibling Prostate carcinoma Sibling Prostate carcinoma Father Brain tumor Sibling Breast cancer Multiple sclerosis Social History Social History Social History: Surrogate medical decision maker: Marco Del Toro, son. Code status: Full code. Years smoked: 6 Smoking status: Former smoker Second hand tobacco smoke exposure: No Smoking end date: 11/15/1960 Alcohol intake: never Substance use: never Substance use type: does not use Lack of Transportation: No Lack of Food: Never True Current Housing: I Have Housing Concerned About Future Housing: No Difficulty Paying Gas/Electric Bills: No Difficulty Paying for Meds: No Currently Unemployed: No Education: High School Diploma/GED Difficulty w/ Childcare or Family Care: No Additional living arrangements comments: Lives in her own home though currently at rehab. Spiritual care concerns: No Agree to blood products: Yes Meds Home Medications and Allergies Home Medications Medication Instructions Re
--- NOTE | 2022-11-23 14:29 | PCPTNOTE ---
Patient refused treatment this session. Patient states she is awaiting PEG Tube placement tomorrow and does not want to do therapy today.
--- NOTE | 2022-11-23 15:42 | PM.IMPN ---
Progress Note: A&P Assessment and Plan (1) Bilateral pulmonary embolism: Code(s): I26.99 - Other pulmonary embolism without acute cor pulmonale Status: Acute Assessment and Plan: -presented for cp/sob -CTA shows bilateral pulmonary emboli also has some pneumonia -echo with EF 60-65%, non significant valvular abnormality, grade I diastolic dysfunction -started on Lovenox 1 milligram/kilogram b.i.d. -currently on 1L NC w/ oxygen saturations in the high 90s. currenlty off oxygen. -cc for xarelto vs eliquis. 11/23/2021 interval history: patient with bilateral pulmonary emboli being treated with Lovenox 80 mg b.i.d., also has dysphagia had a modified swallow study on 11/19 and failed, speech therapy recommended NPO, on 11/20 discussed with the patient's son and consent to NG tube and G-tube feeding until patient is able to swallow, on 11/21 patient was tolerating G-tube feeding however patient pulled out her NG tube on 11/22, discussed patient son and daughter both are in agreement for PEG, consulted GI, patient seen by GI today plan to place PEG tomorrow, will have ST continue to work with the patient and further recommendation to follow. (2) DVT (deep venous thrombosis): Code(s): I82.409 - Acute embolism and thrombosis of unspecified deep veins of unspecified lower extremity Status: Acute Assessment and Plan: -L popliteal, peroneal, posterior tibial -on anticoagulation as noted above (3) Dysphagia: Code(s): R13.10 - Dysphagia, unspecified Status: Acute Assessment and Plan: -ST bedside swallow eval ordered barium swallow planned (4) Anxiety: Code(s): F41.9 - Anxiety disorder, unspecified Status: Acute Assessment and Plan: -continue clonazepam and Seroquel QHS (5) Hypertension: Code(s): I10 - Essential (primary) hypertension Status: Chronic Assessment and Plan: -continue home meds, stable (6) Pneumonia: Code(s): J18.9 - Pneumonia, unspecified organism Status: Acute Assessment and Plan: -Chest CT shows findings of mild pneumonia though clinically she does not seem to have an active respiratory infection. More likely residual findings of viral pneumonia from her recent influenza A infection. -continue to monitor, consider starting abx if begins showing signs/symptoms of acute infection. Subjective Date/time seen: 11/23/22 15:42 Interval history: 82-year-old female with history of stroke with residual left-sided weakness, hypertension, anxiety, depression, and remote history of kidney cancer status post right nephrectomy in 2001 who is admitted w/ acute bilateral PE. patient reports she is having swallowing diffuculty. otherwise no overnght events. she has some sob, off oxygen this am. no fever, chlls. 11/23/2021 interval history: patient with bilateral pulmonary emboli being treated with Lovenox 80 mg b.i.d., also has dysphagia had a modified swallow study on 11/19 and failed, speech therapy recommended NPO, on 11/20 discussed with the patient's son and consent to NG tube and G-tube feeding until patient is able to swallow, on 11/21 patient was tolerating G-tube feeding however patient pulled out her NG tube on 11/22, discussed patient son and daughter both are in agreement for PEG, consulted GI, patient seen by GI today plan to place PEG tomorrow, will have ST continue to work with the patient and further recommendation to follow. Review of Systems Review of Systems: All systems reviewed & are unremarkable except as noted in HPI and below Exam Narrative: Patient is comfortable, NAD HEENT: eyes are clear and none icteric LUNGS: normal respiratory effort ABD: distended Lower extremities: no edema SKIN: nonjaundiced Neuro: grossly intact. Objective Data Vital Signs Vital Signs: Vital Signs - 24 hr 11/23/22 06:00 11/23/22 08:45 Temperature 96.5 F L Pulse Rate 73 Respira
[2022-11-23 20:00] VITALS: O2SAT 100
[2022-11-23] MEDS: clonazePAM (*CRX) 0.5 MG TABLET 2 MG PO (21:52)
[2022-11-23 22:00] VITALS: BP 147/62; PULSE 71; RESP 14; TEMP 35.9; O2SAT 98
[2022-11-24] VITALS (9 sets, daily range): BP systolic 111–174; BP diastolic 49–86; PULSE 67–78; RESP 16–20; TEMP 35.8–36.5; O2SAT 94–100
[2022-11-24] MEDS: LORazepam INJ (*CRX) 2 MG/ML VIAL 0.5 MG IV PUSH ×2 (03:34→10:54)
--- NOTE | 2022-11-24 04:18 | PC.NURSE ---
Pt states she is anxious about procedure. Pt has had very little sleep. Pt treated with prn ativan to help with anxiety. Pt resting in bed. has not had kpad on at all during shift. Pt participated and contributed in plan of care. Pt to have surgery today. Will continue to monitor pt.
[2022-11-24 06:19] LABS: Hematocrit 32.2 % (37.0-47.0); Hemoglobin 10.3 g/dL (12.0-15.0); Mean Corpuscular Hemoglobin 27.8 pg (26-34); Platelet Count Result 335 k/mm3 (150-375); Red Cell Distribution Width 13.8 % (11.5-14.5); White Blood Count 6.5 K/mm3 (4.5-10.0)
[2022-11-24 06:29] LABS: Anion Gap 3 mmol/L (8-16); Blood Urea Nitrogen 10 mg/dL (7-17); Calcium 8.7 mg/dL (8.4-10.2); Carbon Dioxide 27 mmol/L (22-30); Chloride 104 mmol/L (98-107); Estimated CRCL calculation 79 ml/min; Estimated Glomerular Filt Rate > 60; Glucose 124 mg/dL (65-110); Magnesium 1.7 mg/dL (1.6-2.3); Potassium 3.1 mmol/L (3.4-5.0); Sodium 134 mmol/L (137-145)
[2022-11-24] MEDS: DEXTROSE 5%/0.9% SOD CHL 1,000 ML 100 ML IV CONT (08:51)
[2022-11-24] MEDS: POTASSIUM CHLORIDE INJ 40 MEQ in SODIUM CHLORIDE 0.9% IV 500 ML 130 MEQ IVPB (10:53)
--- NOTE | 2022-11-24 11:06 | PCNFU ---
Nutrition Follow-Up Complete: Inadequate energy intake related to dysphagia as evidenced by MBSS findings Goal:Tolerate tube feeding at goal rate Pt current nutrition is NPO, did have an NGT, pulled it out. Nutrition recommendation: initiate tube feedings when able to Last recorded weight is 81.1 kg - stable at this time. Bowel Motility: no BM recorded Labs Reviewed: Hgb:10.3, HCT:32.2, NA:134, K:3.1, Cr:0.5, Glu:124 Meds Noted: lovenox, KCL Skin: WNL Additional Notes: Pt had an NGT in, pulled it out. Noted failed MBS. PEG placement scheduled for today per nursing. Recommend - Jevity 1.5 @ goal rate 55 ml/h. Start at 20 ml and increase 10 ml q 4 hours as tolerated to goal rate. 100 ml flushes q 4 hours. Providing 1815 kcals, 77 g protein, 1519 total free water including flushes. Monitor TF tolerance, labs, stool patterns, weights, swallow ability Follow up Tuesdays and Fridays per policy
--- NOTE | 2022-11-24 11:10 | PCDIET ---
*Tube feeding Recommendation - Jevity 1.5 @ goal rate 55 ml/h. Start at 20 ml and increase 10 ml q 4 hours as tolerated to goal rate. 100 ml flushes q 4 hours. Providing 1815 kcals, 77 g protein, 1519 total free water including flushes.
--- NOTE | 2022-11-24 11:32 | WPDANESEPPF ---
Anes - Initial Pre Proc Eval Procedure: Operation Date: 11/24/22 13:15 Proposed Procedures p Percutaneous Endoscopic Gastrostomy - Colby Moreno MD Date/Time: 11/24/22 11:32 Surgeon: Johana Presley PA-C Pre Op Diagnosis: PE Patient Data Age: 82 Gender: F Height: 1.68 m Weight: 81.1 kg Last Vital Signs Temp 97.7 F 11/24/22 11:26 Pulse 78 11/24/22 11:26 Resp 20 11/24/22 11:26 BP 159/76 H 11/24/22 11:26 Pulse Ox 99 11/24/22 11:26 O2 Del Method Room Air 11/24/22 11:26 O2 Flow Rate 2 11/24/22 09:00 Allergies Allergy/AdvReac Type Severity Reaction Status Date / Time adhesive tape Allergy Intermediate for Verified 11/24/22 10:26 surgical tape and tape causes blisters/contact dermatiti hydrochlorothiazide Allergy Unknown Verified 11/17/22 12:58 latex Allergy Unknown Verified 11/17/22 12:58 ramipril Allergy Unknown Verified 11/17/22 12:58 cephalexin [From Keflex] AdvReac Nausea and Verified 11/17/22 12:58 Vomiting lisinopril AdvReac Cough Verified 11/17/22 12:58 Home Medications Medication Instructions Recorded Confirmed Type acetaminophen 325 mg tablet 650 mg PO Q4H PRN Pain 03/05/20 11/17/22 History aspirin 81 mg chewable tablet 81 mg PO DAILY 03/05/20 11/17/22 History clonazepam 2 mg tablet 2 mg PO HS 03/05/20 11/17/22 History quetiapine 25 mg tablet 6.25 mg PO HS 03/05/20 11/17/22 History calcium carbonate 500 mg calcium 400 mg PO Q6H PRN Indigestion #0 03/17/20 11/17/22 Rx (1,250 mg) chewable tablet tabs amlodipine 10 mg tablet 10 mg PO DAILY 10/25/22 11/17/22 History losartan 50 mg tablet 50 mg PO DAILY 10/25/22 11/17/22 History coenzyme Q10 100 mg tablet 100 mg PO DAILY 11/02/22 11/17/22 History omega-3 fatty acids 1,000 mg PO DAILY 11/02/22 11/17/22 History psyllium husk 0.4 gram capsule 1.3 g PO DAILY 11/02/22 11/17/22 History (Fiber (psyllium husk)) bisacodyl 10 mg rectal suppository 10 mg RECTAL DAILY PRN Constipation 11/17/22 11/17/22 History magnesium citrate (Citroma oral 296 ml PO DAILY PRN Constipation 11/17/22 11/17/22 History solution) magnesium hydroxide 400 mg/5 mL 30 ml PO QHS PRN Constipation 11/17/22 11/17/22 History oral suspension (Milk of Magnesia) potassium chloride 20 mEq 20 meq PO DAILY 11/17/22 11/17/22 History tablet,extended release sodium phosphates 19 gram-7 118 ml RECTAL DAILY PRN 11/17/22 11/17/22 History gram/118 mL enema (Fleet Enema) Constipation Laboratory Tests 11/24/22 11/24/22 06:11 06:11 WBC 6.5 K/mm3 K/mm3 (4.5-10.0) RBC 3.70 M/mm3 L M/mm3 (4.2-5.4) Hgb 10.3 g/dL L g/dL (12.0-15.0) Hct 32.2 % L % (37.0-47.0) MCV 87.0 fl fl (80-100) MCH 27.8 pg pg (26-34) MCHC 32.0 g/dl g/dl (32-36) RDW 13.8 % % (11.5-14.5) Plt Count 335 k/mm3 k/mm3 (150-375) MPV 8.0 fl fl (7.4-10.4) Sodium 134 mmol/L L mmol/L (137-145) Potassium 3.1 mmol/L L mmol/L (3.4-5.0) Chloride 104 mmol/L mmol/L (98-107) Carbon Dioxide 27 mmol/L mmol/L (22-30) Anion Gap 3 mmol/L L mmol/L (8-16) BUN 10 mg/dL mg/dL (7-17) Creatinine 0.50 mg/dL L mg/dL (0.7-1.0) Estim Creat Clear Calc 79 ml/min ml/min Estimated GFR > 60 (59 - ) Glucose 124 mg/dL H mg/dL (65-110) Calcium 8.7 mg/dL mg/dL (8.4-10.2) Magnesium 1.7 mg/dL mg/dL (1.6-2.3) Patient hx anesthesia problems: none Family hx anesthesia problems: none Results Review: All pre-operative results and documents have been reviewed as part of the pre-operative evaluation. [facility] Past Medical History Medical History (Updated 11/18/22 @ 13:21 by Johana Presley PA-C) Anxiety and depression Cancer of right kidney Status post nephrectomy in 2001. Hemiparesis of left nondominant side History of electroconvulsive therapy Hypertension Surgical Hi
--- NOTE | 2022-11-24 11:33 | PCPTNOTE ---
Patient out of room for PEG placement, unable to be seen for PT. PT will continue to follow per plan of care.
[2022-11-24] MEDS: levoFLOXacin 500 MG/D5W 100 ML 500 MG/100 ML BAG 100 MG IVPB (12:01)
[2022-11-24] MEDS: LACTATED RINGERS 1,000 ML 150 ML IV CONT (12:01)
--- NOTE | 2022-11-24 16:18 | PM.IMPN ---
Progress Note: A&P Assessment and Plan (1) Bilateral pulmonary embolism: Code(s): I26.99 - Other pulmonary embolism without acute cor pulmonale Status: Acute Assessment and Plan: -presented for cp/sob -CTA shows bilateral pulmonary emboli also has some pneumonia -echo with EF 60-65%, non significant valvular abnormality, grade I diastolic dysfunction -started on Lovenox 1 milligram/kilogram b.i.d. -currently on 1L NC w/ oxygen saturations in the high 90s. currenlty off oxygen. -cc for xarelto vs eliquis. 11/24/2021 interval history: patient with bilateral pulmonary emboli being treated with Lovenox 80 mg b.i.d., also has dysphagia had a modified swallow study on 11/19 and failed, speech therapy recommended NPO, on 11/20 discussed with the patient's son and consent to NG tube and G-tube feeding until patient is able to swallow, on 11/21 patient was tolerating G-tube feeding however patient pulled out her NG tube on 11/22, discussed patient son and daughter both are in agreement for PEG, consulted GI, patient seen by GI today had PEG placed, will start Gtube feeding later this evening and resume anticoagulation tomorrow, will have ST continue to work with the patient and further recommendation to follow. once is able tolerate her G tube feeding and at goal, will dishcarge patient possibly on . (2) DVT (deep venous thrombosis): Code(s): I82.409 - Acute embolism and thrombosis of unspecified deep veins of unspecified lower extremity Status: Acute Assessment and Plan: -L popliteal, peroneal, posterior tibial -on anticoagulation as noted above (3) Dysphagia: Code(s): R13.10 - Dysphagia, unspecified Status: Acute Assessment and Plan: -ST bedside swallow eval ordered barium swallow planned (4) Anxiety: Code(s): F41.9 - Anxiety disorder, unspecified Status: Acute Assessment and Plan: -continue clonazepam and Seroquel QHS (5) Hypertension: Code(s): I10 - Essential (primary) hypertension Status: Chronic Assessment and Plan: -continue home meds, stable (6) Pneumonia: Code(s): J18.9 - Pneumonia, unspecified organism Status: Acute Assessment and Plan: -Chest CT shows findings of mild pneumonia though clinically she does not seem to have an active respiratory infection. More likely residual findings of viral pneumonia from her recent influenza A infection. -continue to monitor, consider starting abx if begins showing signs/symptoms of acute infection. Subjective Date/time seen: 11/24/22 16:18 Interval history: 82-year-old female with history of stroke with residual left-sided weakness, hypertension, anxiety, depression, and remote history of kidney cancer status post right nephrectomy in 2001 who is admitted w/ acute bilateral PE. patient reports she is having swallowing diffuculty. otherwise no overnght events. she has some sob, off oxygen this am. no fever, chlls. 11/24/2021 interval history: patient with bilateral pulmonary emboli being treated with Lovenox 80 mg b.i.d., also has dysphagia had a modified swallow study on 11/19 and failed, speech therapy recommended NPO, on 11/20 discussed with the patient's son and consent to NG tube and G-tube feeding until patient is able to swallow, on 11/21 patient was tolerating G-tube feeding however patient pulled out her NG tube on 11/22, discussed patient son and daughter both are in agreement for PEG, consulted GI, patient seen by GI today had PEG placed, will start Gtube feeding later this evening and resume anticoagulation tomorrow, will have ST continue to work with the patient and further recommendation to follow. once is able tolerate her G tube feeding and at goal, will dishcarge patient possibly on . Review of Systems Review of Systems: All systems reviewed & are unremarkable except as noted in HPI and below Exam Narrative: Bhavani
[2022-11-24] MEDS: FLUTICASONE PROPIONATE 0.05% NA SPR 16 GM BTL (*BKC) 1 SPRAY NASAL (21:40)
[2022-11-24] MEDS: clonazePAM (*CRX) 0.5 MG TABLET 2 MG PO (21:45)
[2022-11-24] MEDS: ALPRAZolam (*CRX) 0.5 MG TABLET PO (21:45)
[2022-11-24] MEDS: ONDANSETRON INJ 4 MG/2 ML VIAL IV PUSH (21:45)
[2022-11-25] MEDS: DEXTROSE 5%/0.9% SOD CHL 1,000 ML 100 ML IV CONT ×2 (01:14→11:21)
[2022-11-25 04:39] VITALS: BP 135/61; PULSE 69; RESP 20; TEMP 36.1; O2SAT 97
--- NOTE | 2022-11-25 05:21 | PC.NURSE ---
Patient resting quietly in bed throughout night. Voicing no complaints. TF infusing at 30ml without any difficulty and 100ml flushes. Patient denies any pain or nausea at this time. HOB >30 degrees. Pascal draining without any difficulty. Patient resting well.
[2022-11-25 06:32] LABS: Hematocrit 31.4 % (37.0-47.0); Hemoglobin 10.3 g/dL (12.0-15.0); Mean Corpuscular HGB Conc 32.8 g/dl (32-36); Mean Corpuscular Hemoglobin 27.7 pg (26-34); Mean Corpuscular Volume 84.4 fl (80-100); Mean Platelet Volume 8.2 fl (7.4-10.4); Platelet Count Result 358 k/mm3 (150-375); Red Blood Count 3.72 M/mm3 (4.2-5.4); Red Cell Distribution Width 13.7 % (11.5-14.5)
[2022-11-25 06:41] LABS: Anion Gap 3 mmol/L (8-16); Blood Urea Nitrogen 11 mg/dL (7-17); Calcium 8.9 mg/dL (8.4-10.2); Carbon Dioxide 28 mmol/L (22-30); Chloride 105 mmol/L (98-107); Estimated CRCL calculation 62 ml/min; Estimated Glomerular Filt Rate > 60; Glucose 124 mg/dL (65-110); Magnesium 1.7 mg/dL (1.6-2.3); Potassium 3.1 mmol/L (3.4-5.0); Sodium 136 mmol/L (137-145)
[2022-11-25 08:00] VITALS: O2SAT 97
[2022-11-25] MEDS: FLUTICASONE PROPIONATE 0.05% NA SPR 16 GM BTL (*BKC) 1 SPRAY NASAL ×2 (08:00→20:38)
[2022-11-25] MEDS: ASPIRIN 81 MG CHEWABLE TABLET PO (08:01)
[2022-11-25] MEDS: ARTIFICIAL TEARS OPHTH SOLN 15 ML BOTTLE 1 DROP LEFT EYE (08:01)
[2022-11-25] MEDS: LOSARTAN POTASSIUM 50 MG TABLET PO (08:01)
[2022-11-25] MEDS: POTASSIUM CHLORIDE 20 MEQ PACKET (FOR LIQUID) PO (08:01)
[2022-11-25] MEDS: amLODIPine BESYLATE 5 MG TABLET 10 MG PO (08:01)
[2022-11-25] MEDS: OMEGA 3 POLYUNSAT FATTY ACIDS 1 GM CAP PO (08:01)
--- NOTE | 2022-11-25 10:15 | PM.IMPN ---
Progress Note: A&P Assessment and Plan (1) Bilateral pulmonary embolism: Code(s): I26.99 - Other pulmonary embolism without acute cor pulmonale Status: Acute Assessment and Plan: -presented for cp/sob -CTA shows bilateral pulmonary emboli also has some pneumonia -echo with EF 60-65%, non significant valvular abnormality, grade I diastolic dysfunction -started on Lovenox 1 milligram/kilogram b.i.d. -currently on 1L NC w/ oxygen saturations in the high 90s. currenlty off oxygen. -cc for xarelto vs eliquis. 11/25/2021 interval history: patient with bilateral pulmonary emboli being treated with Lovenox 80 mg b.i.d., also has dysphagia had a modified swallow study on 11/19 and failed, speech therapy recommended NPO, on 11/20 discussed with the patient's son and consent to NG tube and G-tube feeding until patient is able to swallow, on 11/21 patient was tolerating G-tube feeding however patient pulled out her NG tube on 11/22, discussed patient son and daughter both are in agreement for PEG, consulted GI, patient seen by GI, on 11/24 had PEG placed, started Gtube feeding, and resume anticoagulation with Eliquis 10mg BID for 7 days and thereafter 5mg twice a day, will have ST continue to work with the patient and further recommendation to follow. once is able tolerate her G tube feeding and at goal, will dishcarge patient possibly on . (2) DVT (deep venous thrombosis): Code(s): I82.409 - Acute embolism and thrombosis of unspecified deep veins of unspecified lower extremity Status: Acute Assessment and Plan: -L popliteal, peroneal, posterior tibial -on anticoagulation as noted above (3) Dysphagia: Code(s): R13.10 - Dysphagia, unspecified Status: Acute Assessment and Plan: -ST bedside swallow eval ordered barium swallow planned (4) Anxiety: Code(s): F41.9 - Anxiety disorder, unspecified Status: Acute Assessment and Plan: -continue clonazepam and Seroquel QHS (5) Hypertension: Code(s): I10 - Essential (primary) hypertension Status: Chronic Assessment and Plan: -continue home meds, stable (6) Pneumonia: Code(s): J18.9 - Pneumonia, unspecified organism Status: Acute Assessment and Plan: -Chest CT shows findings of mild pneumonia though clinically she does not seem to have an active respiratory infection. More likely residual findings of viral pneumonia from her recent influenza A infection. -continue to monitor, consider starting abx if begins showing signs/symptoms of acute infection. Subjective Date/time seen: 11/25/22 10:15 Interval history: 82-year-old female with history of stroke with residual left-sided weakness, hypertension, anxiety, depression, and remote history of kidney cancer status post right nephrectomy in 2001 who is admitted w/ acute bilateral PE. patient reports she is having swallowing diffuculty. otherwise no overnght events. she has some sob, off oxygen this am. no fever, chlls. 11/25/2021 interval history: patient with bilateral pulmonary emboli being treated with Lovenox 80 mg b.i.d., also has dysphagia had a modified swallow study on 11/19 and failed, speech therapy recommended NPO, on 11/20 discussed with the patient's son and consent to NG tube and G-tube feeding until patient is able to swallow, on 11/21 patient was tolerating G-tube feeding however patient pulled out her NG tube on 11/22, discussed patient son and daughter both are in agreement for PEG, consulted GI, patient seen by GI, on 11/24 had PEG placed, started Gtube feeding, and resume anticoagulation with Eliquis 10mg BID for 7 days and thereafter 5mg twice a day, will have ST continue to work with the patient and further recommendation to follow. once is able tolerate her G tube feeding and at goal, will dishcarge patient possibly on . Review of Systems Review of Systems: All systems reviewed & are u
[2022-11-25] MEDS: APIXABAN 5 MG TABLET 10 MG PO ×2 (11:21→20:38)
[2022-11-25] MEDS: ALPRAZolam (*CRX) 0.5 MG TABLET PO ×2 (11:21→20:38)
[2022-11-25 13:50] VITALS: BMI 10.0
[2022-11-25 14:00] VITALS: BP 146/69; PULSE 66; RESP 18; TEMP 36.5; O2SAT 98
--- NOTE | 2022-11-25 14:40 | WPDANESPN ---
Anes - Prog Note Post-Op Date/Time: 11/25/22 14:40 Cardiovascular status: normal Respiratory status: normal Airway patency: baseline Mental status: baseline Post-Op hydration status: normal Vital Signs: Last Vital Signs Temp 36.1 C L 11/25/22 04:39 Pulse 69 11/25/22 04:39 Resp 20 11/25/22 04:39 BP 135/61 11/25/22 04:39 Pulse Ox 97 11/25/22 08:00 O2 Del Method Nasal Cannula 11/25/22 08:00 O2 Flow Rate 2 11/25/22 08:00 Pain Score (VAS): pt states she is just a little sore. I/O: Intake & Output 11/24/22 11/25/22 11/25/22 23:59 07:59 15:59 Intake Total 1100 30 1000 Output Total 450 750 Balance 650 -720 1000 Laboratory Tests 11/25/22 06:02 11/25/22 06:02 11/25/22 11/25/22 06:02 06:02 WBC 6.0 RBC 3.72 L Hgb 10.3 L Hct 31.4 L MCV 84.4 MCH 27.7 MCHC 32.8 RDW 13.7 Plt Count 358 MPV 8.2 Sodium 136 L Potassium 3.1 L Chloride 105 Carbon Dioxide 28 Anion Gap 3 L BUN 11 Creatinine 0.50 L Estim Creat Clear Calc 62 Estimated GFR > 60 Glucose 124 H Calcium 8.9 Magnesium 1.7 Post-procedural complaints: none Patient Feedback: Patient satisfied with anesthetic care.
--- NOTE | 2022-11-25 16:15 | WPDGIPROGNO ---
Progress Note: A&P Assessment and Plan (1) Dysphagia: Code(s): R13.10 - Dysphagia, unspecified Status: Acute Assessment and Plan: she was high risk aspiration from previous stroke g-tube working ok will follow [place], call if questions (2) Bilateral pulmonary embolism: Code(s): I26.99 - Other pulmonary embolism without acute cor pulmonale Status: Acute Assessment and Plan: she is back on AC with leticia (3) Hypertension: Code(s): I10 - Essential (primary) hypertension Status: Chronic (4) Right pontine stroke: Code(s): I63.50 - Cerebral infarction due to unspecified occlusion or stenosis of unspecified cerebral artery Status: Acute Subjective Date/time seen: 11/25/22 16:15 Interval history: G-tube placed yesterday and she is tolerating tube feeding Review of Systems Review of Systems: All systems reviewed & are unremarkable except as noted in HPI and below Exam Const: General: comfortable and no acute distress HENMT: Face/Nose/Sinus: Normal nares present Eyes: General: appearance normal, both eyes and all related structures Neck: Neck: no JVD Resp: Auscultation: clear to auscultation bilaterally Cardio: Rate: regular rate Rhythm: regular rhythm GI: Inspection: non-distended GI Palp: Yes Soft to palpation, No Tenderness to palpation present (GI) and No Guarding due to palpation present (GI) Auscultation: normal bowel sounds Other: G-tube in place Skin: General skin exam: normal color Neuro: Speech: normal speech Other: awake and alert Extrem: General: normal to inspection Psych: Affect: normal affect Objective Data Vital Signs Vital Signs: Vital Signs - 24 hr 11/24/22 20:30 11/25/22 04:39 11/25/22 08:00 Temperature 96.9 F L 97 F L Pulse Rate 69 69 Respiratory Rate 18 20 Blood Pressure 151/66 H 135/61 Pulse Oximetry 94 97 97 Oxygen Delivery Nasal Cannula Oxygen Flow Rate 2 11/25/22 14:00 Temperature 97.7 F Pulse Rate 66 Respiratory Rate 18 Blood Pressure 146/69 H Pulse Oximetry 98 Oxygen Delivery Oxygen Flow Rate Intake/Output Intake/Output: Intake & Output 11/22/22 11/23/22 11/24/22 11/25/22 23:59 23:59 23:59 23:59 Intake Total 1999 1999 2600 1030 Output Total 2703 2323 1500 750 [facility] -[phone] -361 1100 280 Meds/Results Medications: Active Medications Generic Name Dose Route Start Last Admin Trade Name Kim PRN Reason Stop Dose Admin Acetaminophen 650 mg 11/18/22 08:03 11/21/22 16:37 Acetaminophen 325 Mg Tablet PO 650 mg Q4H PRN Administration Pain Alprazolam 0.5 mg 11/21/22 16:05 11/25/22 11:21 Alprazolam (*Crx) 0.5 Mg Tablet PO 0.5 mg TID PRN Administration Anxiety Amlodipine Besylate 10 mg 11/18/22 09:00 11/25/22 08:01 Amlodipine Besylate 5 Mg Tablet PO 10 mg DAILY KALEN Administration Apixaban 10 mg 11/25/22 09:00 11/25/22 11:21 Apixaban 5 Mg Tablet PO 12/01/22 21:01 10 mg Q12HR KALEN Administration Apixaban 5 mg 12/02/22 09:00 Apixaban 5 Mg Tablet PO Q12HR KALEN Artificial Tears 1 drop 11/19/22 17:41 11/25/22 08:01 Artificial Tears Ophth Soln 15 Ml Bottle LEFT EYE 1 drop QID PRN Administration Dry Eye(s) Aspirin 81 mg 11/18/22 09:00 11/25/22 08:01 Aspirin 81 Mg Chewable Tablet PO 81 mg DAILY KALEN Administration Bisacodyl 10 mg 11/18/22 08:03 Bisacodyl 10 Mg Suppository RECTAL DAILY PRN Constipation Calcium Carbonate 400 mg 11/18/22 08:03 Calcium Carbonate (Tums) 500 Mg (200 Mg Elemental) PO Q6H PRN Indigestion Clonazepam 2 mg 11/18/22 21:00 11/24/22 21:45 Clonazepam (*Crx) 0.5 Mg Tablet PO 2 mg HS KALEN Administration Fish Oil 1 gm 11/18/22 09:00 11/25/22 08:01 [place] 3 Polyunsat Fatty Acids 1 Gm Cap PO 1 gm QAM KALEN Administration Fluticasone Propionate 1 spray 11/22/22 21:00 11/25/22 08:00 Fluticasone Propionate 0
[2022-11-25 20:00] VITALS: O2SAT 98
[2022-11-25] MEDS: clonazePAM (*CRX) 0.5 MG TABLET 2 MG PO (20:38)
[2022-11-25 20:39] VITALS: BP 143/62; PULSE 62; RESP 18; TEMP 36.4
[2022-11-25 22:00] VITALS: BP 148/59; PULSE 63; RESP 16; TEMP 36.1; O2SAT 98
[2022-11-25] MEDS: ACETAMINOPHEN 325 MG TABLET 650 MG PO (23:45)
[2022-11-26] VITALS (8 sets, daily range): BP systolic 129–154; BP diastolic 58–63; PULSE 67–73; RESP 18–21; TEMP 35.9–36.1; O2SAT 93–97
[2022-11-26] MEDS: LORazepam INJ (*CRX) 2 MG/ML VIAL 0.5 MG IV PUSH (00:37)
[2022-11-26] MEDS: DEXTROSE 5%/0.9% SOD CHL 1,000 ML 100 ML IV CONT (00:57)
[2022-11-26 06:23] LABS: Hemoglobin 10.2 g/dL (12.0-15.0); Mean Corpuscular HGB Conc 31.9 g/dl (32-36); Mean Corpuscular Hemoglobin 27.9 pg (26-34); Mean Corpuscular Volume 87.7 fl (80-100); Mean Platelet Volume 8.2 fl (7.4-10.4); Platelet Count Result 328 k/mm3 (150-375); Red Blood Count 3.65 M/mm3 (4.2-5.4); Red Cell Distribution Width 13.9 % (11.5-14.5); White Blood Count 6.8 K/mm3 (4.5-10.0)
[2022-11-26 06:36] LABS: Anion Gap 2 mmol/L (8-16); Blood Urea Nitrogen 14 mg/dL (7-17); Calcium 8.5 mg/dL (8.4-10.2); Carbon Dioxide 31 mmol/L (22-30); Chloride 102 mmol/L (98-107); Estimated CRCL calculation 62 ml/min; Estimated Glomerular Filt Rate > 60; Glucose 127 mg/dL (65-110); Magnesium 1.7 mg/dL (1.6-2.3); Potassium 3.4 mmol/L (3.4-5.0); Sodium 135 mmol/L (137-145)
--- NOTE | 2022-11-26 07:45 | PC.NURSE ---
Director Of Institutional Sales assessed patient and patient appeared to be in respiratory distress. Patient blood pressure was slightly elevated (see vitals) but oxygen saturation was WNL. Director Of Institutional Sales listened to patients lungs and crackles were heard upon auscultation. Director Of Institutional Sales called hospitalist Elaine. Stat orders put in (see orders). New orders put in (see orders). New medications put in (see MAR).
[2022-11-26] MEDS: FUROSEMIDE INJ 40 MG/4 ML VIAL IV PUSH (08:31)
[2022-11-26] MEDS: APIXABAN 5 MG TABLET 10 MG PO (08:31)
[2022-11-26] MEDS: ASPIRIN 81 MG CHEWABLE TABLET PO (08:31)
[2022-11-26] MEDS: amLODIPine BESYLATE 5 MG TABLET 10 MG PO (08:31)
[2022-11-26] MEDS: FLUTICASONE PROPIONATE 0.05% NA SPR 16 GM BTL (*BKC) 1 SPRAY NASAL (08:31)
[2022-11-26] MEDS: OMEGA 3 POLYUNSAT FATTY ACIDS 1 GM CAP PO (08:32)
[2022-11-26] MEDS: LOSARTAN POTASSIUM 50 MG TABLET PO (08:32)
[2022-11-26] MEDS: POTASSIUM CHLORIDE 20 MEQ PACKET (FOR LIQUID) PO (08:32)
[2022-11-26 09:03] LABS: Alveolar/Arterial O2 Gradient 86.8 mmHg; Base Excess ABG 3.1 mEq/l (+/-2.0); Fractional Inspired Oxygen 28 %; HCO3 ABG 27.1 mEq/l (22.0-26.0); Oxygen Content ABG 15.9 %vol (16.0-22.0); Oxygen Saturation ABG 94.1 % (95.0-100.0); Oxyhemoglobin 92.5 % THb (90.0-100.0); PCO2 ABG 39.3 mmHg (35.0-45.0); PO2 ABG 66.5 mmHg (80.0-100.0); PO2 FiO2 Ratio Arterial Blood 2.38 %; Total Hemoglobin 12.2 g/dL (12.0-18.0); pH ABG 7.456 (7.350-7.450)
[2022-11-26 09:06] LABS: Device NASAL CANNULA; Modified Allen's Test Pass; Site Drawn RIGHT RADIAL
--- NOTE | 2022-11-26 11:52 | PCSTNOTE ---
Patient refused speech therapy today, said to come back tomorrow.
--- NOTE | 2022-11-26 13:15 | PM.DS ---
DS: Admitting Diagnosis Discharge Date 11/26/2022 Admitting Diagnosis Shortness of breath and chest pain. DS: Discharge Diagnosis Discharge Diagnosis (1) Bilateral pulmonary embolism: Code(s): I26.99 - Other pulmonary embolism without acute cor pulmonale Status: Acute Assessment and Plan: -presented for cp/sob -CTA shows bilateral pulmonary emboli also has some pneumonia -echo with EF 60-65%, non significant valvular abnormality, grade I diastolic dysfunction -started on Lovenox 1 milligram/kilogram b.i.d. -currently on 1L NC w/ oxygen saturations in the high 90s. currenlty off oxygen. -cc for xarelto vs eliquis. 11/25/2021 interval history: patient with bilateral pulmonary emboli being treated with Lovenox 80 mg b.i.d., also has dysphagia had a modified swallow study on 11/19 and failed, speech therapy recommended NPO, on 11/20 discussed with the patient's son and consent to NG tube and G-tube feeding until patient is able to swallow, on 11/21 patient was tolerating G-tube feeding however patient pulled out her NG tube on 11/22, discussed patient son and daughter both are in agreement for PEG, consulted GI, patient seen by GI, on 11/24 had PEG placed, started Gtube feeding, and resume anticoagulation with Eliquis 10mg BID for 7 days and thereafter 5mg twice a day, will have ST continue to work with the patient and further recommendation to follow. once is able tolerate her G tube feeding and at goal, will dishcarge patient possibly on . (2) DVT (deep venous thrombosis): Code(s): I82.409 - Acute embolism and thrombosis of unspecified deep veins of unspecified lower extremity Status: Acute Assessment and Plan: -L popliteal, peroneal, posterior tibial -on anticoagulation as noted above (3) Dysphagia: Code(s): R13.10 - Dysphagia, unspecified Status: Acute Assessment and Plan: -ST bedside swallow eval ordered barium swallow planned (4) Anxiety: Code(s): F41.9 - Anxiety disorder, unspecified Status: Acute Assessment and Plan: -continue clonazepam and Seroquel QHS (5) Hypertension: Code(s): I10 - Essential (primary) hypertension Status: Chronic Assessment and Plan: -continue home meds, stable (6) Pneumonia: Code(s): J18.9 - Pneumonia, unspecified organism Status: Acute Assessment and Plan: -Chest CT shows findings of mild pneumonia though clinically she does not seem to have an active respiratory infection. More likely residual findings of viral pneumonia from her recent influenza A infection. -continue to monitor, consider starting abx if begins showing signs/symptoms of acute infection. DS: Summary Hospital Course Reason for hospitalization: Shortness of breath and chest pain. Narrative: This is a pleasant 82-year-old female with history of stroke with residual left-sided weakness, hypertension, anxiety, depression, and remote history of kidney cancer status post right nephrectomy in 2001 who presented to the ED via EMS from [facility] for evaluation of chest pain shortness a breath. She is known to the hospitalist service from a recent admission with weakness due to influenza A, UTI, and hyponatremia. She was discharged to [facility] for for rehab and she has been there for a couple of weeks. She does not feel as though she is getting good rehab and tells me that ill me work with her 10 minutes today. More recently she has been complaining of some nondescript chest pain and shortness of breath with activity and she was brought in today for evaluation. Vital signs were stable on arrival. Labs were relatively unremarkable aside from an elevated D-dimer. Subsequent chest CTA showed acute pulmonary emboli in the lower lobes and left upper lobe and also findings of mild pneumonia in the lower lobes and she is being admitted in this setting. She has no prior history of venous thromboembol
[2022-11-26] MEDS: ACETAMINOPHEN 325 MG TABLET 650 MG PO (13:39)
[2022-11-26] MEDS: ALPRAZolam (*CRX) 0.5 MG TABLET PO (13:40)
--- NOTE | 2022-11-26 15:18 | PC.NURSE ---
Called [facility] to give report to nurse at 1515. No answer. Voicemail left.
[2022-11-26 16:29] LABS: EDCOVIDSCREEN Negative (Negative)
[2022-11-26] MEDS: ALBUTEROL SULFATE NEB 2.5 MG/3 ML INH INHALATION (17:13)
[2022-11-26] MEDS: IPRATROPIUM BR 0.02% INH SOLN 0.5 MG/2.5 ML VIAL INHALATION (17:13)
== END 2022-11-26 19:29 | DRG 176 ==
LOC: ANHED 13:23 → ANH3MEDSUR 16:47
PROVIDERS: Internal Medicine; Internal Medicine Gastroenterology; Physician Assistant; Admitting Provider Student in an Organized Health Care Education/Training Program; Emergency Provider Physician Assistant; PCP Internal Medicine; Visit Provider Family Medicine
PROC: 0DH63UZ Insertion of Feeding Device into Stomach, Percutaneous Approach (ICD-10-PCS; CPT 43246; principal; 2022-11-24 13:15)
DX: I26.99 Other pulmonary embolism without acute cor pulmonale (principal); I69.354 Hemiplegia and hemiparesis following cerebral infarction affecting left non-dominant side; I82.432 Acute embolism and thrombosis of left popliteal vein; I82.452 Acute embolism and thrombosis of left peroneal vein; I82.442 Acute embolism and thrombosis of left tibial vein; I69.391 Dysphagia following cerebral infarction; R13.10 Dysphagia, unspecified; Z20.822 Contact with and (suspected) exposure to COVID-19; I10 Essential (primary) hypertension; F41.8 Other specified anxiety disorders; Z87.01 Personal history of pneumonia (recurrent); Z79.82 Long term (current) use of aspirin; Z87.891 Personal history of nicotine dependence; Z85.528 Personal history of other malignant neoplasm of kidney; Z90.710 Acquired absence of both cervix and uterus; Z90.5 Acquired absence of kidney
CPT/HCPCS: 36415; 36600; 43246; 71046; 71275; 80048; 80053; 82805; 83735; 83880; 84484; 85025; 85027; 85380; 85610; 85730; 87426; 87636; 92526; 92610; 92611; 93005; 93306; 93970; 94640; 96372; 96374; 96375; 97110; 97161; 97166; 97530; 97535; 99285; A9270; C9803; G0378; J0131; J1650; J1940; J1956; J2060; J2405; J2704; J3480; J7040; J7042; J7120; Q9967